=== PATIENT | female | born 1940 | race Caucasian/White ===

== ENCOUNTER → 2018-03-24 09:42 | Outpatient (CLI) | payer MEDICARE, SELFPAY | PROVIDERS: Family Provider Family Medicine; PCP Family Medicine; Visit Provider Physician Assistant | DX: M30.1 Polyarteritis with lung involvement [Churg-Strauss] (principal); N30.01 Acute cystitis with hematuria | CPT/HCPCS: 87077; 87086; 87186 ==

== ENCOUNTER 2018-09-16 12:45 | Outpatient (RCR) | payer MEDICARE, SELFPAY ==
--- NOTE | 2018-08-02 16:00 | PT.OIE ---
Current Diagnoses Muscle weakness (generalized) (08/02/18) Trochanteric bursitis, right hip (08/02/18) Other abnormalities of gait and mobility (08/02/18) Other symptoms and signs involving the musculoskeletal system (08/02/18) Past Medical History (Last Updated 05/21/18 @ 12:05 by Lucrecia Steen) Diabetes mellitus (Chronic 08/2000) Glaucoma (Chronic 09/2004) Hyperlipidemia (Chronic) Hypertension (Chronic) Lumbar spinal stenosis (Chronic) Osteoarthritis (Chronic) Urinary incontinence (Chronic 08/2009) Cataract (Resolved 2012) Gout (Resolved ~10/1995) Past Surgical History (Last Updated 05/21/18 @ 12:05 by Lucrecia Steen) Anesthesia (Resolved) History of cataract removal with insertion of prosthetic lens (Resolved) History of hip replacement (Resolved) History of knee replacement (Resolved 04/2009) History of knee replacement (Resolved 07/2010) History of open reduction and internal fixation (ORIF) procedure (Resolved) Status post cholecystectomy (Resolved 08/1998) Status post discectomy (Resolved 06/2014) Provider Visit Care Team Role Provider Type Clyde Armas MD Family Provider Physician Primary Care Provider Specialty: Family Practice Address: [address] [place] [address] Email: [email or web address] Malachi Welsh MD Attending Provider Physician Specialty: Orthopedic Surgery Address: [address] [place] [address], [facility] Email: [email or web address] Physical Therapy Initial Evaluation PT-OP-A Visit Information Start: 07/30/18 17:20 Freq: Status: Active Protocol: Document 08/02/18 13:35 LRN (Rec: 08/02/18 14:51 LRN [id number]) Out-Patient Physical Therapy Visit Information Visit Information Visit Type Initial Evaluation Visit Start Time 13:35 Visit Stop Time 14:35 Total Visit Minutes 60 Visit Number 1 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 Pain is 0-5/10. No pain with sitting, walking worsens with distance/time. After 12 steps feels like leg will give out. Has fallen a couple times (last time fell 07/22/18 while outside fell to the right) because she trips on the cane (using the cane on the left side). When down she can't get up because core strength is poor. Cane use for 1 month. Prior Treatments and Tests Cortisone injection in R hip with +response for only 15 minutes. Future Testing and Treatments Planned MD follow up 6 weeks from today (~09/07/18). Treatment Goals Patient/Caregiver Goals Pt goal is to be able to walk without pain and without the cane. Prior Functional Status Baseline Function- ADL's Independent Baseline Function- Mobility Independent Baseline Function- Gait 100' without assist device. Baseline Function- Recreation/Hobbies Can't garden Current Functional Impairments (Reported) Functional Limitations- ADL's Walking from one end to the house to the other (75'). Sometimes getting in/out of shower, trouble getting up/ down from regular toilet, Functional Limitations- Mobility/Gait Walking 100' with cane Personal Factors Other Personal Factors That May Effect Lives alone, Chronicity of Therapy/Recovery condition, failed response to Cortisone injection, history of L AUGUSTO and glo TKA. PT-OP-C Subjective Start: 07/30/18 17:20 Freq: Status: Active Protocol: Document 08/02/18 13:35 LRN (Rec: 08/02/18 14:51 LRN [id number]) Patient Questionnaires Lower Extremity Functional Scale LEFS Score 39 LEFS Impairment 40 to 59% Impaired (Score 32- 47) OP-PT Pain Assessment Location R hip Pain Location Details R Lateral hip Intensity 6 Scale Used Numeric (1 - 10) Description Stabbing Frequency No Pattern Radiating Location None Pain Aggravating Factors Standing Walking Stair Climbing Patient Stated Pain Goal Relieving pain Home Pain Medication Use Pain Medications Used Yes: Sometimes and mostly for arthritis Home Pain Medication Frequency Tylenol PT-OP-D Balance Start: 07/30/18 17:20 Freq: Status: Active Protocol: Document 08/02/18 13:35 LRN (Rec: 08/02/18 16:39 LRN [id number]) Balance Tests Single Limb Standing Single Limb- Right 0 Single Limb- Left 1 Other Other Balance Tests Performed Pt did not feels safe SLS without assist to start. PT-OP-F Manual Assessment Start: 07/30/18 17:20 Freq: Status: Active Protocol: Document 08/02/18 13:35 LRN (Rec: 08/02/18 16:39 LRN [id number]) Manual Assessments Soft Tissue Assessment Soft Tissue Mobility Assessment Pain at R greater trochanter with greatest pain inferiorly and at hip ER tendonous attachments. Denies pain at IT Band. PT-OP-G Mobility & Gait Start: 07/30/18 17:20 Freq: Status: Active Protocol: Document 08/02/18 13:35 LRN (Rec: 08/02/18 16:39 LRN [id number]) OP Gait Assessment Gait Gait Assistance Required: Independent Able to Maintain Weight Bearing Status Yes During Gait Assistive Devices Assistive Device Straight Cane Gait Deviations General Gait Pattern Antalgic Lateral Trunk Lean Wide Based Gait Factors Limiting Gait Function Factors Limiting Gait Function Incoordination Pain Comments Gait Comments Gait limited by incoordination with use of cane. Pt demonstrated improper use of cane and was not able to safely coordinate gait with use of cane. PT-OP-H Neuro Start: 07/30/18 17:20 Freq: Status: Active Protocol: Document 08/02/18 13:35 LRN (Rec: 08/02/18 16:39 LRN [id number]) Sensation Evaluation Gross Sensation Gross Sensation WNL Deep Tendon Reflex & Clonus Assessment Deep Tendon Reflex Bilateral Patellar Deep Tendon Reflex 1+ Diminished Bilateral Achilles Deep Tendon Reflex 0 Absent PT-OP-J Posture/Palpation/Skin Start: 07/30/18 17:20 Freq: Status: Active Protocol: Document 08/02/18 13:35 LRN (Rec: 08/02/18 16:39 LRN [id number]) Posture Evaluation Comments Posture Comments In standing: Pt has a mildly wide stance, mildly forward bent at hips, decreased lumbar lordosis, increased mid thoracic kyphosis, and increased R shoulder height. Palpation Assessment Location R hip Palpation Location R greater trochanter Palpation Findings Tenderness Palpation Details Pain at greater trochanter, inferiorly and posteriorly at hip ER tendons. PT-OP-K Range of Motion Start: 07/30/18 17:20 Freq: Status: Active Protocol: Document 08/02/18 13:35 LRN (Rec: 08/02/18 16:39 LRN [id number]) Hip Goniometric Range of Motion Hip Measured in Degrees Right Active Testing Position Sitting External Rotation 0 Right Passive Testing Position Supine Internal Rotation 20 External Rotation 75 Left Passive Testing Position Supine Abduction 35 Internal Rotation 35 External Rotation 45 Hip ROM Limitations Comments Passive Hip AD (in supine): 25 deg's left, 15 deg's right. PT-OP-M Strength Start: 07/30/18 17:20 Freq: Status: Active Protocol: Document 08/02/18 13:35 LRN (Rec: 08/02/18 16:39 LRN [id number]) Hip Strength Hip Manual Muscle Testing Right Flexion (L2) 3 Fair Extension (S1) 2- Poor- Abduction 2- Poor- Adduction 2- Poor- External Rotation 4 Good Internal Rotation 3 Fair Left Flexion (L2) 3 Fair Extension (S1) 2- Poor- Abduction 2- Poor- Adduction 1 Trace External Rotation 2- Poor- Internal Rotation 3 Fair Knee Strength Knee Manual Muscle Testing Right Reason Not Measured WFL Left Reason Not Measured WFL PT-OP-Q Treatments Start: 07/30/18 17:20 Freq: Status: Active Protocol: Document 08/02/18 13:35 LRN (Rec: 08/02/18 16:39 LRN [id number]) Gait Training Gait Activity 1 Description Gait training with use of cane Device Used Cane Level of Assistance Moderate Surface Level Distance/Duration 5' Treatment Focus Weight reduction on R LE. Comments Pt unable to coordinate unweighting of R LE with use of cane on the L side. Pt continued to weight bear normal on R and off weighted on the L, even with physical assist and cuing. Self-Care/Home Management Treatment Education Patient Education Pain Management Safety Other Education Discussed safety of gait with use of walker vs a cane on the left. I/S pt in use of cryotherapy for the hip and discussed RICE treatment for inflammation management. PT-OP-R Modalities Start: 07/30/18 17:20 Freq: Status: Active Protocol: Document 08/02/18 13:35 LRN (Rec: 08/02/18 16:39 LRN [id number]) Hot Pack/Cold Pack Treatment Cold Pack Patient Position Sitting Treatment Duration (minutes) 10 Patient Tolerance Good Comments Sitting due to positioning of pt to start was in sitting. PT-OP-T Assessment and Plan Start: 07/30/18 17:20 Freq: Status: Active Protocol: Document 08/02/18 13:35 LRN (Rec: 08/02/18 14:51 LRN [id number]) Physical Therapy Assessment Rehab Potential Rehabilitation Potential Good Evaluation Complexity Number of Personal Factors/Comorbidities 1-2 Number of Body Systems Impaired 4 or More Clinical Presentation at Evaluation Stable Impairments Impairments Activity Tolerance Balance Gait Pain Posture ROM Strength Other Concerns Age Related Concerns 65+ yrs old. Diabetes. History of falls Barriers to Rehabilitation L AUGUSTO Bilateral TKA's Goals Four Impairment Decreased hip mobility with R hip pain. Jail Goal (LTG) Pt will improve hip mobility and be able to don socks without hip pain and walk with decreased hip pain. 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 LTG Duration 10/05/18 Two Impairment Decreased balance [employer] Director Goal (LTG) Pt will be able to walk safely without a cane LTG Duration 10/05/18 One Impairment Lacks self long-term program Jail Goal (LTG) Pt will be independent with a home exercise program. LTG Duration 10/05/18 Assessment Summary Assessment Pt is an 78 year old female with signs and symptoms of R hip bursitis. She has pain upon palpation and relief with rest. She has decreased hip, knee and core strength and is limited with hip mobility. She also demonstrates poor gait mechanics using a single point cane (SPC) even after training and would be safer with use of a walker to help unweight her R LE during gait. Prognosis is good if the pt can perform proper hip care and normalize her gait mechanics with an assistive device to start. The pt will benefit from skilled physical therapy to decrease her R hip pain, improve her gait mechanics, improve her hip mobility and strength and improve her core awareness for stabilization and strengthening. Physical Therapy Plan Frequency and Duration Frequency of Treatment 2x/Week Plan of Care Start Date 08/02/18 Plan of Care End Date 10/05/18 Therapeutic Interventions Therapeutic Interventions Aquatic Therapy Gait Training Home Exercise Program Joint Mobilizations Neuromuscular Re-education Patient/Caregiver Education Self-Care/Home Management Soft Tissue Mobilization Taping Therapeutic Exercises Modalities Cold Pack/Ice Massage Iontophoresis Ultrasound Next Visit Focus/Plan Next Note Type Treatment Note Next Visit Plan Assess TUG for safety with gait (cane vs walker) and stair ambulation. Start Ultrasound R hip bursa and hip ER tendons at greater trochanter, stretch hip external rotators and TFL, HEP & gait training with walker. End K-tape for space correction and ice, or iontophoresis (with return of referral).
--- NOTE | 2018-08-02 16:00 | PT.OPPOC ---
Current Diagnoses Muscle weakness (generalized) (08/02/18) Trochanteric bursitis, right hip (08/02/18) Other abnormalities of gait and mobility (08/02/18) Other symptoms and signs involving the musculoskeletal system (08/02/18) Provider Visit Care Team Role Provider Type Clyde Armas MD Family Provider Physician Primary Care Provider Specialty: Family Practice Address: [address] [place] [address], [id number] Email: [email or web address] Malachi Welsh MD Attending Provider Physician Specialty: Orthopedic Surgery Address: [address] [place] [address], [address] Email: [email or web address] Plan Of Care PT-OP-T Assessment and Plan Start: 07/30/18 17:20 Freq: Status: Active Protocol: Document 08/02/18 13:35 LRN (Rec: 08/02/18 14:51 LRN [id number]) Physical Therapy Assessment Rehab Potential Rehabilitation Potential Good Evaluation Complexity Number of Personal Factors/Comorbidities 1-2 Number of Body Systems Impaired 4 or More Clinical Presentation at Evaluation Stable Impairments Impairments Activity Tolerance Balance Gait Pain Posture ROM Strength Other Concerns Age Related Concerns 65+ yrs old. Diabetes. History of falls Barriers to Rehabilitation L AUG[place]O Bilateral TKA's Goals Four Impairment Decreased hip mobility with R hip pain. [place] Goal (LTG) Pt will improve hip mobility and be able to don socks without hip pain and walk with decreased hip pain. Three Impairment Decreased hip and core strength [place] Goal (LTG) Pt will be able to walk at her baseline level without a cane . LTG Duration 10/05/18 Two Impairment Decreased balance [place] Goal (LTG) Pt will be able to walk safely without a cane LTG Duration 10/05/18 One Impairment Lacks self long-term program Long-Term Goal (LTG) Pt will be independent with a home exercise program. LTG Duration 10/05/18 Assessment Summary Assessment Pt is an 78 year old female with signs and symptoms of R hip bursitis. She has pain upon palpation and relief with rest. She has decreased hip, knee and core strength and is limited with hip mobility. She also demonstrates poor gait mechanics using a single point cane (SPC) even after training and would be safer with use of a walker to help unweight her R LE during gait. Prognosis is good if the pt can perform proper hip care and normalize her gait mechanics with an assistive device to start. The pt will benefit from skilled physical therapy to decrease her R hip pain, improve her gait mechanics, improve her hip mobility and strength and improve her core awareness for stabilization and strengthening. Physical Therapy Plan Frequency and Duration Frequency of Treatment 2x/Week Plan of Care Start Date 08/02/18 Plan of Care End Date 10/05/18 Therapeutic Interventions Therapeutic Interventions Aquatic Therapy Gait Training Home Exercise Program Joint Mobilizations Neuromuscular Re-education Patient/Caregiver Education Self-Care/Home Management Soft Tissue Mobilization Taping Therapeutic Exercises Modalities Cold Pack/Ice Massage Iontophoresis Ultrasound Next Visit Focus/Plan Next Note Type Treatment Note Next Visit Plan Assess TUG for safety with gait (cane vs walker) and stair ambulation. Start Ultrasound R hip bursa and hip ER tendons at greater trochanter, stretch hip external rotators and TFL, HEP & gait training with walker. End K-tape for space correction and ice, or iontophoresis (with return of referral). Plan of Care Dates Plan of Care Start Date 08/02/18 Plan of Care End Date 10/05/18 Please Sign and Return: I have reviewed this Plan of Care and certify that the skilled therapy services above are required to meet the patient?s needs. Physician Signature Date Printed Name and Credentials Clinical Instructor Signature Printed Name and Credentials
--- NOTE | 2018-08-05 16:32 | PT.OTN ---
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 Pain is 0-5/10. No pain with sitting, walking worsens with distance/time. After 12 steps feels like leg will give out. Has fallen a couple times (last time fell 07/22/18 while outside fell to the right) because she trips on the cane (using the cane on the left side). When down she can't get up because core strength is poor. Cane use for 1 month. Prior Treatments and Tests Cortisone injection in R hip with +response for only 15 minutes. Future Testing and Treatments Planned MD follow up 6 weeks from today (~09/07/18). Treatment Goals Patient/Caregiver Goals Pt goal is to be able to walk without pain and without the cane. Prior Functional Status Baseline Function- ADL's Independent Baseline Function- Mobility Independent Baseline Function- Gait 100' without assist device. Baseline Function- Recreation/Hobbies Can't garden Current Functional Impairments (Reported) Functional Limitations- ADL's Walking from one end to the house to the other (75'). Sometimes getting in/out of shower, trouble getting up/ down from regular toilet, Functional Limitations- Mobility/Gait Walking 100' with cane Personal Factors Other Personal Factors That May Effect Lives alone, Chronicity of Therapy/Recovery condition, failed response to Cortisone injection, history of L AUGUSTO and timbo TKA. PT-OP-C Subjective Start: 07/30/18 17:20 Freq: Status: Active Protocol: Document 08/05/18 13:30 LRN (Rec: 08/05/18 14:31 LRN [id number]) OP-PT Subjective Patient Comments Patient Comments Pt notes a little improvement with use of walker at home, more mobility. PT-OP-D Balance Start: 07/30/18 17:20 Freq: Status: Active Protocol: Document 08/02/18 13:35 LRN (Rec: 08/02/18 16:39 LRN [id number]) Balance Tests Single Limb Standing Single Limb- Right 0 Single Limb- Left 1 Other Other Balance Tests Performed Pt did not feels safe SLS without assist to start. PT-OP-E Functional Tests Start: 07/30/18 17:20 Freq: Status: Active Protocol: Document 08/05/18 13:30 LRN (Rec: 08/05/18 14:31 LRN [id number]) Functional Tests Timed Up and Go (TUG) Score 18 Comments Cane used on left side TUG Impairment Rating 80 to <100% Impaired (Score 18 -19) PT-OP-F Manual Assessment Start: 07/30/18 17:20 Freq: Status: Active Protocol: Document 08/02/18 13:35 LRN (Rec: 08/02/18 16:39 LRN [id number]) Manual Assessments Soft Tissue Assessment Soft Tissue Mobility Assessment Pain at R greater trochanter with greatest pain inferiorly and at hip ER tendonous attachments. Denies pain at IT Band. PT-OP-G Mobility & Gait Start: 07/30/18 17:20 Freq: Status: Active Protocol: Document 08/05/18 13:30 LRN (Rec: 08/05/18 14:31 LRN [id number]) Stair Climbing Evaluation Evaluation Level of Assist On Stairs Independent Devices Stair Climbing Assistive Devices Straight Cane Left Railing Right Railing Comments Stair Climbing Comments Pt can do step over step on 4 step. On 6 step ascend/ descend with step to step gait . PT-OP-H Neuro Start: 07/30/18 17:20 Freq: Status: Active Protocol: Document 08/02/18 13:35 LRN (Rec: 12/17/18 16:39 LRN [id number]) Sensation Evaluation Gross Sensation Gross Sensation WNL Deep Tendon Reflex & Clonus Assessment Deep Tendon Reflex Bilateral Patellar Deep Tendon Reflex 1+ Diminished Bilateral Achilles Deep Tendon Reflex 0 Absent PT-OP-J Posture/Palpation/Skin Start: 07/30/18 17:20 Freq: Status: Active Protocol: Document 08/02/18 13:35 LRN (Rec: 08/02/18 16:39 LRN [id number]) Posture Evaluation Comments Posture Comments In standing: Pt has a mildly wide stance, mildly forward bent at hips, decreased lumbar lordosis, increased mid thoracic kyphosis, and increased R shoulder height. Palpation Assessment Location R hip Palpation Location R greater trochanter Palpation Findings Tenderness Palpation Details Pain at greater trochanter, inferiorly and posteriorly at hip ER tendons. PT-OP-K Range of Motion Start: 07/30/18 17:20 Freq: Status: Active Protocol: Document 08/02/18 13:35 LRN (Rec: 08/02/18 16:39 LRN [id number]) Hip Goniometric Range of Motion Hip Measured in Degrees Right Active Testing Position Sitting External Rotation 0 Right Passive Testing Position Supine Internal Rotation 20 External Rotation 75 Left Passive Testing Position Supine Abduction 35 Internal Rotation 35 External Rotation 45 Hip ROM Limitations Comments Passive Hip AD (in supine): 25 deg's left, 15 deg's right. PT-OP-M Strength Start: 07/30/18 17:20 Freq: Status: Active Protocol: Document 08/02/18 13:35 LRN (Rec: 08/02/18 16:39 LRN [id number]) Hip Strength Hip Manual Muscle Testing Right Flexion (L2) 3 Fair Extension (S1) 2- Poor- Abduction 2- Poor- Adduction 2- Poor- External Rotation 4 Good Internal Rotation 3 Fair Left Flexion (L2) 3 Fair Extension (S1) 2- Poor- Abduction 2- Poor- Adduction 1 Trace External Rotation 2- Poor- Internal Rotation 3 Fair Knee Strength Knee Manual Muscle Testing Right Reason Not Measured WFL Left Reason Not Measured WFL PT-OP-Q Treatments Start: 07/30/18 17:20 Freq: Status: Active Protocol: Document 08/05/18 13:30 LRN (Rec: 08/05/18 16:25 LRN [id number]) Gait Training Gait Activity Stairs Description Ascend/Descend Device Used Cane, 1 Railing, 2 Railings Level of Assistance V. cuing Surface 4 and 6 steps Distance/Duration 8' Treatment Focus Safety with stair ambulation Comments Pt varied the way she ambulated stairs based on how stable and safe she was feeling. 1 Description Gait training Device Used Parallel bars and Cane Level of Assistance Min A and verbal cuing Surface Level Distance/Duration 25' Comments Proper mechanics of L foot during swing through phase and for off loading of RLE. PT-OP-R Modalities Start: 07/30/18 17:20 Freq: Status: Active Protocol: Document 08/05/18 13:30 LRN (Rec: 08/05/18 16:25 LRN [id number]) Hot Pack/Cold Pack Treatment Cold Pack Location Low back Patient Position Sitting Treatment Duration (minutes) 10 Patient Tolerance Good Ultrasound Therapy Treatment R hip Treatment Duration (minutes) 8 Patient Position Sidelying Coupling Medium Ultrasound Gel Applicator Size (cm2) 5 Frequency Setting (mHz) 1 Mode Setting Pulsed Duty Cycle 50% Intensity Setting (w/cm2) 1.0 Comments Less pain with palpation. No change in pain intensity in standing. PT-OP-T Assessment and Plan Start: 07/30/18 17:20 Freq: Status: Active Protocol: Document 08/05/18 13:30 LRN (Rec: 08/05/18 14:31 LRN [id number]) Physical Therapy Assessment Assessment Summary Assessment Pt demonstrates proper use of cane for short distances, but when hurrying she does not use it properly. Per TUG pt is 80<100% impaired with functional mobility. Stairs: she is able to safely go up/ down 4 and 6 steps with use of at least one rail, and can go step over step but is most safe with one step at a time. Gait: She circumducts her L lower leg, increasing her risk of hitting her cane during gait. Physical Therapy Plan Frequency and Duration Frequency of Treatment 2x/Week Plan of Care Start Date 08/02/18 Plan of Care End Date 10/05/18 Next Visit Focus/Plan Next Note Type Treatment Note Next Visit Plan Ultrasound R hip bursa and hip ER tendons at greater trochanter, add: stretch hip external rotators and TFL, gait training as needed for pt not to kick the cane during L leg swing through phase. Try K-tape for space correction and ice, or iontophoresis (with return of referral).
--- NOTE | 2018-08-19 17:04 | PT.OTN ---
Current Diagnoses Trochanteric bursitis, right hip (08/19/18) Physical Therapy Treatment Note PT-OP-A Visit Information Start: 07/30/18 17:20 Freq: Status: Active Protocol: Document 08/19/18 16:51 [facility] (Rec: 08/19/18 17:04 AMH [email or web address]) Out-Patient Physical Therapy Visit Information Visit Information Visit Type Treatment Note Visit Start Time 13:45 Visit Stop Time 14:30 Total Visit Minutes 60 Visit Number 3 Number of BICYCLE DESIGNER Visits 0 Evaluation Information Evaluation Date 08/02/18 PT-OP-B Current Condition Start: 07/30/18 17:20 Freq: Status: Active Protocol: Document 08/02/18 13:35 LRN (Rec: 08/02/18 14:51 LRN [id number]) Current Condition History of Current Condition Onset Date 1 month ago Current Complaints Can't walk without R lateral hip hurting, needs cane History of Current Condition R hip pain of insidious onset that kept worsening to this point. Pain is 0-5/10. No pain with sitting, walking worsens with distance/time. After 12 steps feels like leg will give out. Has fallen a couple times (last time fell 07/22/18 while outside fell to the right) because she trips on the cane (using the cane on the left side). When down she can't get up because core strength is poor. Cane use for 1 month. Prior Treatments and Tests Cortisone injection in R hip with +response for only 15 minutes. Future Testing and Treatments Planned MD follow up 6 weeks from today (~09/07/18). Treatment Goals Patient/Caregiver Goals Pt goal is to be able to walk without pain and without the cane. Prior Functional Status Baseline Function- ADL's Independent Baseline Function- Mobility Independent Baseline Function- Gait 100' without assist device. Baseline Function- Recreation/Hobbies Can't garden Current Functional Impairments (Reported) Functional Limitations- ADL's Walking from one end to the house to the other (75'). Sometimes getting in/out of shower, trouble getting up/ down from regular toilet, Functional Limitations- Mobility/Gait Walking 100' with cane Personal Factors Other Personal Factors That May Effect Lives alone, Chronicity of Therapy/Recovery condition, failed response to Cortisone injection, history of L AUGUSTO and glo TKA. PT-OP-C Subjective Start: 07/30/18 17:20 Freq: Status: Active Protocol: Document 08/19/18 16:51 AMH (Rec: 08/19/18 17:04 AMH [email or web address]) OP-PT Subjective Patient Comments Patient Comments Claudia notes she has been using her cane and walker. She feels like her symptoms are a little bit better. PT-OP-D Balance Start: 07/30/18 17:20 Freq: Status: Active Protocol: Document 08/02/18 13:35 LRN (Rec: 08/02/18 16:39 LRN [id number]) Balance Tests Single Limb Standing Single Limb- Right 0 Single Limb- Left 1 Other Other Balance Tests Performed Pt did not feels safe SLS without assist to start. PT-OP-E Functional Tests Start: 07/30/18 17:20 Freq: Status: Active Protocol: Document 08/05/18 13:30 LRN (Rec: 08/05/18 14:31 LRN [id number]) Functional Tests Timed Up and Go (TUG) Score 18 Comments Cane used on left side TUG Impairment Rating 80 to <100% Impaired (Score 18 -19) PT-OP-F Manual Assessment Start: 07/30/18 17:20 Freq: Status: Active Protocol: Document 08/02/18 13:35 LRN (Rec: 08/02/18 16:39 LRN [id number]) Manual Assessments Soft Tissue Assessment Soft Tissue Mobility Assessment Pain at R greater trochanter with greatest pain inferiorly and at hip ER tendonous attachments. Denies pain at IT Band. PT-OP-G Mobility & Gait Start: 07/30/18 17:20 Freq: Status: Active Protocol: Document 08/05/18 13:30 LRN (Rec: 08/05/18 14:31 LRN [id number]) Stair Climbing Evaluation Evaluation Level of Assist On Stairs Independent Devices Stair Climbing Assistive Devices Straight Cane Left Railing Right Railing Comments Stair Climbing Comments Pt can do step over step on 4 step. On 6 step ascend/ descend with step to step gait . PT-OP-H Neuro Start: 07/30/18 17:20 Freq: Status: Active Protocol: Document 08/02/18 13:35 LRN (Rec: 08/02/18 16:39 LRN [id number]) Sensation Evaluation Gross Sensation Gross Sensation WNL Deep Tendon Reflex & Clonus Assessment Deep Tendon Reflex Bilateral Patellar Deep Tendon Reflex 1+ Diminished Bilateral Achilles Deep Tendon Reflex 0 Absent PT-OP-J Posture/Palpation/Skin Start: 07/30/18 17:20 Freq: Status: Active Protocol: Document 08/02/18 13:35 LRN (Rec: 08/02/18 16:39 LRN [id number]) Posture Evaluation Comments Posture Comments In standing: Pt has a mildly wide stance, mildly forward bent at hips, decreased lumbar lordosis, increased mid thoracic kyphosis, and increased R shoulder height. Palpation Assessment Location R hip Palpation Location R greater trochanter Palpation Findings Tenderness Palpation Details Pain at greater trochanter, inferiorly and posteriorly at hip ER tendons. PT-OP-K Range of Motion Start: 07/30/18 17:20 Freq: Status: Active Protocol: Document 08/02/18 13:35 LRN (Rec: 08/02/18 16:39 LRN [id number]) Hip Goniometric Range of Motion Hip Measured in Degrees Right Active Testing Position Sitting External Rotation 0 Right Passive Testing Position Supine Internal Rotation 20 External Rotation 75 Left Passive Testing Position Supine Abduction 35 Internal Rotation 35 External Rotation 45 Hip ROM Limitations Comments Passive Hip AD (in supine): 25 deg's left, 15 deg's right. PT-OP-M Strength Start: 07/30/18 17:20 Freq: Status: Active Protocol: Document 08/02/18 13:35 LRN (Rec: 08/02/18 16:39 LRN [id number]) Hip Strength Hip Manual Muscle Testing Right Flexion (L2) 3 Fair Extension (S1) 2- Poor- Abduction 2- Poor- Adduction 2- Poor- External Rotation 4 Good Internal Rotation 3 Fair Left Flexion (L2) 3 Fair Extension (S1) 2- Poor- Abduction 2- Poor- Adduction 1 Trace External Rotation 2- Poor- Internal Rotation 3 Fair Knee Strength Knee Manual Muscle Testing Right Reason Not Measured WFL Left Reason Not Measured WFL PT-OP-Q Treatments Start: 07/30/18 17:20 Freq: Status: Active Protocol: Document 08/19/18 16:51 AMH (Rec: 08/19/18 17:04 AMH [email or web address]) Cardio Equipment Recumbent Elliptical (Biodex) Duration (Minutes) 5 Therapeutic Exercises Supine Exercises 4 Supine Exercise Name hoolying hip ER bilateral Reps/Minutes 30 reps 3 Supine Exercise Name hamstring and ITB stretch with strap 2 Supine Exercise Name figure 4 stretch Reps/Minutes hold 1 min 1 Supine Exercise Name single knee to chest Reps/Minutes hold 1 minute Manual Therapy Treatment Soft Tissue Mobilization 1 Body Location soft tissue massage over the right ITB and lateral hip in left sidelying Body Position Sidelying Taping 1 Body Location kinesiotape star technique over the right greater trochanter PT-OP-R Modalities Start: 07/30/18 17:20 Freq: Status: Active Protocol: Document 08/19/18 16:51 AMH (Rec: 08/19/18 17:04 AMH [email or web address]) Hot Pack/Cold Pack Treatment Cold Pack Location Low back Patient Position Sitting Treatment Duration (minutes) 10 Patient Tolerance Good Ultrasound Therapy Treatment R hip Treatment Duration (minutes) 8 Patient Position Sidelying Coupling Medium Ultrasound Gel Applicator Size (cm2) 5 Frequency Setting (mHz) 1 Mode Setting Pulsed Duty Cycle 50% Intensity Setting (w/cm2) 1.0 Comments Less pain with palpation. No change in pain intensity in standing. PT-OP-T Assessment and Plan Start: 07/30/18 17:20 Freq: Status: Active Protocol: Document 08/19/18 16:51 AMH (Rec: 08/19/18 17:04 [facility] [email or web address]) Physical Therapy Assessment Assessment Summary Assessment Good tolerance today for STM over the hip and ultrasound. Claudia notes decreased tenderness overall to palpation. She tolerated the stretches well and we did a trial of kinesiotape to help reduce inflammation Physical Therapy Plan Frequency and Duration Frequency of Treatment 2x/Week Plan of Care Start Date 08/02/18 Plan of Care End Date 10/05/18 Therapeutic Interventions Therapeutic Interventions Aquatic Therapy Gait Training Home Exercise Program Joint Mobilizations Neuromuscular Re-education Patient/Caregiver Education Self-Care/Home Management Soft Tissue Mobilization Taping Therapeutic Exercises Modalities Cold Pack/Ice Massage Iontophoresis Ultrasound Next Visit Focus/Plan Next Note Type Treatment Note Next Visit Plan continue with Plan of care, add theraband resistance to hip ER if Claudia can tolerate , work on gait training, assess kinesiotape affectiveness next visit
--- NOTE | 2018-08-24 12:33 | PT.OTN ---
Current Diagnoses Trochanteric bursitis, right hip (08/24/18) Physical Therapy Treatment Note PT-OP-A Visit Information Start: 07/30/18 17:20 Freq: Status: Active Protocol: Document 08/24/18 11:20 LRN (Rec: 08/24/18 12:20 LRN [id number]) Out-Patient Physical Therapy Visit Information Visit Information Visit Type Treatment Note Visit Start Time 11:20 Visit Stop Time 12:10 Total Visit Minutes 50 Visit Number 4 Number of WEIGHTS AND MEASURES SEALER Visits 0 Evaluation Information Evaluation Date 08/02/18 PT-OP-B Current Condition Start: 07/30/18 17:20 Freq: Status: Active Protocol: Document 08/02/18 13:35 LRN (Rec: 08/02/18 14:51 LRN [id number]) Current Condition History of Current Condition Onset Date 1 month ago Current Complaints Can't walk without R lateral hip hurting, needs cane History of Current Condition R hip pain of insidious onset that kept worsening to this point. Pain is 0-5/10. No pain with sitting, walking worsens with distance/time. After 12 steps feels like leg will give out. Has fallen a couple times (last time fell 07/22/18 while outside fell to the right) because she trips on the cane (using the cane on the left side). When down she can't get up because core strength is poor. Cane use for 1 month. Prior Treatments and Tests Cortisone injection in R hip with +response for only 15 minutes. Future Testing and Treatments Planned MD follow up 6 weeks from today (~09/07/18). Treatment Goals Patient/Caregiver Goals Pt goal is to be able to walk without pain and without the cane. Prior Functional Status Baseline Function- ADL's Independent Baseline Function- Mobility Independent Baseline Function- Gait 100' without assist device. Baseline Function- Recreation/Hobbies Can't garden Current Functional Impairments (Reported) Functional Limitations- ADL's Walking from one end to the house to the other (75'). Sometimes getting in/out of shower, trouble getting up/ down from regular toilet, Functional Limitations- Mobility/Gait Walking 100' with cane Personal Factors Other Personal Factors That May Effect Lives alone, Chronicity of Therapy/Recovery condition, failed response to Cortisone injection, history of L AUGUSTO and glo TKA. PT-OP-C Subjective Start: 07/30/18 17:20 Freq: Status: Active Protocol: Document 08/24/18 11:20 LRN (Rec: 08/24/18 12:20 LRN [id number]) OP-PT Subjective Patient Comments Patient Comments States she is a little better. She is able to take a few steps without pain, but then uses the cane when the pain returns. PT-OP-D Balance Start: 07/30/18 17:20 Freq: Status: Active Protocol: Document 08/02/18 13:35 LRN (Rec: 08/02/18 16:39 LRN [id number]) Balance Tests Single Limb Standing Single Limb- Right 0 Single Limb- Left 1 Other Other Balance Tests Performed Pt did not feels safe SLS without assist to start. PT-OP-E Functional Tests Start: 07/30/18 17:20 Freq: Status: Active Protocol: Document 08/05/18 13:30 LRN (Rec: 08/05/18 14:31 LRN [id number]) Functional Tests Timed Up and Go (TUG) Score 18 Comments Cane used on left side TUG Impairment Rating 80 to <100% Impaired (Score 18 -19) PT-OP-F Manual Assessment Start: 07/30/18 17:20 Freq: Status: Active Protocol: Document 08/02/18 13:35 LRN (Rec: 08/02/18 16:39 LRN [id number]) Manual Assessments Soft Tissue Assessment Soft Tissue Mobility Assessment Pain at R greater trochanter with greatest pain inferiorly and at hip ER tendonous attachments. Denies pain at IT Band. PT-OP-G Mobility & Gait Start: 07/30/18 17:20 Freq: Status: Active Protocol: Document 08/05/18 13:30 LRN (Rec: 08/05/18 14:31 LRN [id number]) Stair Climbing Evaluation Evaluation Level of Assist On Stairs Independent Devices Stair Climbing Assistive Devices Straight Cane Left Railing Right Railing Comments Stair Climbing Comments Pt can do step over step on 4 step. On 6 step ascend/ descend with step to step gait . PT-OP-H Neuro Start: 07/30/18 17:20 Freq: Status: Active Protocol: Document 08/02/18 13:35 LRN (Rec: 08/02/18 16:39 LRN [id number]) Sensation Evaluation Gross Sensation Gross Sensation WNL Deep Tendon Reflex & Clonus Assessment Deep Tendon Reflex Bilateral Patellar Deep Tendon Reflex 1+ Diminished Bilateral Achilles Deep Tendon Reflex 0 Absent PT-OP-J Posture/Palpation/Skin Start: 07/30/18 17:20 Freq: Status: Active Protocol: Document 08/02/18 13:35 LRN (Rec: 08/02/18 16:39 LRN [id number]) Posture Evaluation Comments Posture Comments In standing: Pt has a mildly wide stance, mildly forward bent at hips, decreased lumbar lordosis, increased mid thoracic kyphosis, and increased R shoulder height. Palpation Assessment Location R hip Palpation Location R greater trochanter Palpation Findings Tenderness Palpation Details Pain at greater trochanter, inferiorly and posteriorly at hip ER tendons. PT-OP-K Range of Motion Start: 07/30/18 17:20 Freq: Status: Active Protocol: Document 08/02/18 13:35 LRN (Rec: 08/02/18 16:39 LRN [id number]) Hip Goniometric Range of Motion Hip Measured in Degrees Right Active Testing Position Sitting External Rotation 0 Right Passive Testing Position Supine Internal Rotation 20 External Rotation 75 Left Passive Testing Position Supine Abduction 35 Internal Rotation 35 External Rotation 45 Hip ROM Limitations Comments Passive Hip AD (in supine): 25 deg's left, 15 deg's right. PT-OP-M Strength Start: 07/30/18 17:20 Freq: Status: Active Protocol: Document 08/02/18 13:35 LRN (Rec: 08/02/18 16:39 LRN [id number]) Hip Strength Hip Manual Muscle Testing Right Flexion (L2) 3 Fair Extension (S1) 2- Poor- Abduction 2- Poor- Adduction 2- Poor- External Rotation 4 Good Internal Rotation 3 Fair Left Flexion (L2) 3 Fair Extension (S1) 2- Poor- Abduction 2- Poor- Adduction 1 Trace External Rotation 2- Poor- Internal Rotation 3 Fair Knee Strength Knee Manual Muscle Testing Right Reason Not Measured WFL Left Reason Not Measured WFL PT-OP-Q Treatments Start: 07/30/18 17:20 Freq: Status: Active Protocol: Document 08/24/18 11:20 LRN (Rec: 08/24/18 12:20 LRN [id number]) Therapeutic Exercises Supine Exercises 4 Supine Exercise Name hookying hip ER bilateral Resistance Lev 1 TB Reps/Minutes 30 reps 3 Supine Exercise Name hamstring and ITB stretch with strap 2 Supine Exercise Name figure 4 stretch Reps/Minutes hold 1 min 1 Supine Exercise Name single knee to chest Reps/Minutes hold 1 minute Gait Training Gait Activity 1 Device Used Cane Level of Assistance Min A and verbal cuing Surface Level Distance/Duration 15 Treatment Focus R foot position and weight shift L hip Manual Therapy Treatment Soft Tissue Mobilization 1 Body Location STM & Trp treatment to T TFL and ITB Body Position L Sidelying Taping 1 Body Location kinesiotape star technique over the right greater trochanter Treatment Focus Space correction Type of Tape Kinesio Tape Skin Inspection Good PT-OP-R Modalities Start: 07/30/18 17:20 Freq: Status: Active Protocol: Document 08/24/18 11:20 LRN (Rec: 08/24/18 12:20 LRN [id number]) Ultrasound Therapy Treatment R hip Treatment Duration (minutes) 8 Patient Position Sidelying Coupling Medium Ultrasound Gel Applicator Size (cm2) 5 Frequency Setting (mHz) 1 Mode Setting Pulsed Duty Cycle 50% Intensity Setting (w/cm2) 1.0 Comments Less pain with palpation. No change in pain intensity in standing. PT-OP-T Assessment and Plan Start: 07/30/18 17:20 Freq: Status: Active Protocol: Document 08/24/18 11:20 LRN (Rec: 08/24/18 12:20 LRN [id number]) Physical Therapy Assessment Goals Four Impairment Decreased hip mobility with R hip pain. Harp Regulator Goal (LTG) Pt will improve hip mobility and be able to don socks without hip pain and walk with decreased hip pain. Three Impairment Decreased hip and core strength Harp Regulator Goal (LTG) Pt will be able to walk at her baseline level without a cane . LTG Duration 10/05/18 Two Impairment Decreased balance Assisted Goal (LTG) Pt will be able to walk safely without a cane LTG Duration 10/05/18 One Impairment Lacks self nursing home program Harp Regulator Goal (LTG) Pt will be independent with a home exercise program. LTG Duration 10/05/18 Assessment Summary Assessment Pt able to take some steps without cane and without pain. Pt was able to ambulate with cane without pain and fair gait mechanics. She shows improved R foot positioning ( mild AB of foot), but needs further training for proper weight shifting and hip/ shoulder positioning when L weightbearing. Physical Therapy Plan Frequency and Duration Frequency of Treatment 2x/Week Plan of Care Start Date 08/02/18 Plan of Care End Date 10/05/18 Next Visit Focus/Plan Next Note Type Treatment Note Next Visit Plan Check TUG. Assess pt response to K-tape for space correction, try iontophoresis (with return of referral). Continue gait training.
--- NOTE | 2018-08-26 15:58 | PT.OTN ---
Current Diagnoses Trochanteric bursitis, right hip (08/24/18) Physical Therapy Treatment Note PT-OP-A Visit Information Start: 07/30/18 17:20 Freq: Status: Active Protocol: Document 08/26/18 13:46 EA (Rec: 08/26/18 13:54 EA [id number]) Out-Patient Physical Therapy Visit Information Visit Information Visit Type Treatment Note Visit Start Time 13:45 Visit Stop Time 14:30 Total Visit Minutes 60 Visit Number 4 Number of CONTRACT PROCESSOR Visits 0 PT-OP-B Current Condition Start: 07/30/18 17:20 Freq: Status: Active Protocol: Document 08/02/18 13:35 LRN (Rec: 08/02/18 14:51 LRN [id number]) Current Condition History of Current Condition Onset Date 1 month ago Current Complaints Can't walk without R lateral hip hurting, needs cane History of Current Condition R hip pain of insidious onset that kept worsening to this point. Pain is 0-5/10. No pain with sitting, walking worsens with distance/time. After 12 steps feels like leg will give out. Has fallen a couple times (last time fell 07/22/18 while outside fell to the right) because she trips on the cane (using the cane on the left side). When down she can't get up because core strength is poor. Cane use for 1 month. Prior Treatments and Tests Cortisone injection in R hip with +response for only 15 minutes. Future Testing and Treatments Planned MD follow up 6 weeks from today (~09/07/18). Treatment Goals Patient/Caregiver Goals Pt goal is to be able to walk without pain and without the cane. Prior Functional Status Baseline Function- ADL's Independent Baseline Function- Mobility Independent Baseline Function- Gait 100' without assist device. Baseline Function- Recreation/Hobbies Can't garden Current Functional Impairments (Reported) Functional Limitations- ADL's Walking from one end to the house to the other (75'). Sometimes getting in/out of shower, trouble getting up/ down from regular toilet, Functional Limitations- Mobility/Gait Walking 100' with cane Personal Factors Other Personal Factors That May Effect Lives alone, Chronicity of Therapy/Recovery condition, failed response to Cortisone injection, history of L AUGUSTO and glo TKA. PT-OP-C Subjective Start: 07/30/18 17:20 Freq: Status: Active Protocol: Document 08/26/18 14:28 EA (Rec: 08/26/18 14:29 EA [id number]) OP-PT Subjective Patient Comments Patient Comments Pt reports my hip is progressing well and feels manual and exercises helps a lot; denies kinesiotape helped . Patient Reported Progress Improving PT-OP-D Balance Start: 07/30/18 17:20 Freq: Status: Active Protocol: Document 08/02/18 13:35 LRN (Rec: 08/02/18 16:39 LRN [id number]) Balance Tests Single Limb Standing Single Limb- Right 0 Single Limb- Left 1 Other Other Balance Tests Performed Pt did not feels safe SLS without assist to start. PT-OP-E Functional Tests Start: 07/30/18 17:20 Freq: Status: Active Protocol: Document 08/05/18 13:30 LRN (Rec: 08/05/18 14:31 LRN [id number]) Functional Tests Timed Up and Go (TUG) Score 18 Comments Cane used on left side TUG Impairment Rating 80 to <100% Impaired (Score 18 -19) PT-OP-F Manual Assessment Start: 07/30/18 17:20 Freq: Status: Active Protocol: Document 08/02/18 13:35 LRN (Rec: 08/02/18 16:39 LRN [id number]) Manual Assessments Soft Tissue Assessment Soft Tissue Mobility Assessment Pain at R greater trochanter with greatest pain inferiorly and at hip ER tendonous attachments. Denies pain at IT Band. PT-OP-G Mobility & Gait Start: 07/30/18 17:20 Freq: Status: Active Protocol: Document 08/05/18 13:30 LRN (Rec: 08/05/18 14:31 LRN [id number]) Stair Climbing Evaluation Evaluation Level of Assist On Stairs Independent Devices Stair Climbing Assistive Devices Straight Cane Left Railing Right Railing Comments Stair Climbing Comments Pt can do step over step on 4 step. On 6 step ascend/ descend with step to step gait . PT-OP-H Neuro Start: 07/30/18 17:20 Freq: Status: Active Protocol: Document 08/02/18 13:35 LRN (Rec: 08/02/18 16:39 LRN [id number]) Sensation Evaluation Gross Sensation Gross Sensation WNL Deep Tendon Reflex & Clonus Assessment Deep Tendon Reflex Bilateral Patellar Deep Tendon Reflex 1+ Diminished Bilateral Achilles Deep Tendon Reflex 0 Absent PT-OP-J Posture/Palpation/Skin Start: 07/30/18 17:20 Freq: Status: Active Protocol: Document 08/02/18 13:35 LRN (Rec: 08/02/18 16:39 LRN [id number]) Posture Evaluation Comments Posture Comments In standing: Pt has a mildly wide stance, mildly forward bent at hips, decreased lumbar lordosis, increased mid thoracic kyphosis, and increased R shoulder height. Palpation Assessment Location R hip Palpation Location R greater trochanter Palpation Findings Tenderness Palpation Details Pain at greater trochanter, inferiorly and posteriorly at hip ER tendons. PT-OP-K Range of Motion Start: 07/30/18 17:20 Freq: Status: Active Protocol: Document 08/02/18 13:35 LRN (Rec: 08/02/18 16:39 LRN [id number]) Hip Goniometric Range of Motion Hip Measured in Degrees Right Active Testing Position Sitting External Rotation 0 Right Passive Testing Position Supine Internal Rotation 20 External Rotation 75 Left Passive Testing Position Supine Abduction 35 Internal Rotation 35 External Rotation 45 Hip ROM Limitations Comments Passive Hip AD (in supine): 25 deg's left, 15 deg's right. PT-OP-M Strength Start: 07/30/18 17:20 Freq: Status: Active Protocol: Document 08/02/18 13:35 LRN (Rec: 08/02/18 16:39 LRN [id number]) Hip Strength Hip Manual Muscle Testing Right Flexion (L2) 3 Fair Extension (S1) 2- Poor- Abduction 2- Poor- Adduction 2- Poor- External Rotation 4 Good Internal Rotation 3 Fair Left Flexion (L2) 3 Fair Extension (S1) 2- Poor- Abduction 2- Poor- Adduction 1 Trace External Rotation 2- Poor- Internal Rotation 3 Fair Knee Strength Knee Manual Muscle Testing Right Reason Not Measured WFL Left Reason Not Measured WFL PT-OP-Q Treatments Start: 07/30/18 17:20 Freq: Status: Active Protocol: Document 08/26/18 13:46 EA (Rec: 08/26/18 13:54 EA [id number]) Therapeutic Exercises Supine Exercises 4 Supine Exercise Name hookying hip ER bilateral Resistance Lev 1 TB Reps/Minutes 30 reps 3 Supine Exercise Name hamstring and ITB stretch with strap 2 Supine Exercise Name figure 4 stretch Reps/Minutes hold 1 min 1 Supine Exercise Name single knee to chest Reps/Minutes hold 1 minute Manual Therapy Treatment Soft Tissue Mobilization 1 Body Location STM & Trp treatment to T TFL and ITB Body Position L Sidelying PT-OP-R Modalities Start: 07/30/18 17:20 Freq: Status: Active Protocol: Document 08/26/18 14:25 EA (Rec: 08/26/18 14:28 EA [id number]) Hot Pack/Cold Pack Treatment Cold Pack Location Right hip Patient Position Sidelying Treatment Duration (minutes) 10 Patient Tolerance Good PT-OP-T Assessment and Plan Start: 07/30/18 17:20 Freq: Status: Active Protocol: Document 08/26/18 14:25 EA (Rec: 08/26/18 14:28 EA [id number]) Physical Therapy Assessment Assessment Summary Assessment Pt tolerated treatment well. Physical Therapy Plan Next Visit Focus/Plan Next Note Type Treatment Note Next Visit Plan Continue gait training.
--- NOTE | 2018-08-30 14:11 | PT.OTN ---
Current Diagnoses Trochanteric bursitis, right hip (08/30/18) Physical Therapy Treatment Note PT-OP-A Visit Information Start: 07/30/18 17:20 Freq: Status: Active Protocol: Document 08/30/18 12:48 LRN (Rec: 08/30/18 14:08 LRN [id number]) Out-Patient Physical Therapy Visit Information Visit Information Visit Type Treatment Note Visit Start Time 12:48 Visit Stop Time 13:40 Total Visit Minutes 52 Visit Number 6 Number of LEGAL SPECIALIST Visits 0 Evaluation Information Evaluation Date 08/02/18 PT-OP-B Current Condition Start: 07/30/18 17:20 Freq: Status: Active Protocol: Document 08/02/18 13:35 LRN (Rec: 08/02/18 14:51 LRN [id number]) Current Condition History of Current Condition Onset Date 1 month ago Current Complaints Can't walk without R lateral hip hurting, needs cane History of Current Condition R hip pain of insidious onset that kept worsening to this point. Pain is 0-5/10. No pain with sitting, walking worsens with distance/time. After 12 steps feels like leg will give out. Has fallen a couple times (last time fell 07/22/18 while outside fell to the right) because she trips on the cane (using the cane on the left side). When down she can't get up because core strength is poor. Cane use for 1 month. Prior Treatments and Tests Cortisone injection in R hip with +response for only 15 minutes. Future Testing and Treatments Planned MD follow up 6 weeks from today (~09/07/18). Treatment Goals Patient/Caregiver Goals Pt goal is to be able to walk without pain and without the cane. Prior Functional Status Baseline Function- ADL's Independent Baseline Function- Mobility Independent Baseline Function- Gait 100' without assist device. Baseline Function- Recreation/Hobbies Can't garden Current Functional Impairments (Reported) Functional Limitations- ADL's Walking from one end to the house to the other (75'). Sometimes getting in/out of shower, trouble getting up/ down from regular toilet, Functional Limitations- Mobility/Gait Walking 100' with cane Personal Factors Other Personal Factors That May Effect Lives alone, Chronicity of Therapy/Recovery condition, failed response to Cortisone injection, history of L AUGUSTO and glo TKA. PT-OP-C Subjective Start: 07/30/18 17:20 Freq: Status: Active Protocol: Document 08/30/18 12:48 LRN (Rec: 08/30/18 14:08 LRN [id number]) OP-PT Subjective Patient Comments Patient Comments Walking with cane. No pain with walking, just tired and weak. Main problem now is back pain. PT-OP-D Balance Start: 07/30/18 17:20 Freq: Status: Active Protocol: Document 08/02/18 13:35 LRN (Rec: 08/02/18 16:39 LRN [id number]) Balance Tests Single Limb Standing Single Limb- Right 0 Single Limb- Left 1 Other Other Balance Tests Performed Pt did not feels safe SLS without assist to start. PT-OP-E Functional Tests Start: 07/30/18 17:20 Freq: Status: Active Protocol: Document 08/30/18 12:48 LRN (Rec: 08/30/18 14:08 LRN [id number]) Functional Tests Timed Up and Go (TUG) Score 25 Comments Without cane TUG Impairment Rating 100% Impaired (Score 20) PT-OP-F Manual Assessment Start: 07/30/18 17:20 Freq: Status: Active Protocol: Document 08/02/18 13:35 LRN (Rec: 08/02/18 16:39 LRN [id number]) Manual Assessments Soft Tissue Assessment Soft Tissue Mobility Assessment Pain at R greater trochanter with greatest pain inferiorly and at hip ER tendonous attachments. Denies pain at IT Band. PT-OP-G Mobility & Gait Start: 07/30/18 17:20 Freq: Status: Active Protocol: Document 08/05/18 13:30 LRN (Rec: 08/05/18 14:31 LRN [id number]) Stair Climbing Evaluation Evaluation Level of Assist On Stairs Independent Devices Stair Climbing Assistive Devices Straight Cane Left Railing Right Railing Comments Stair Climbing Comments Pt can do step over step on 4 step. On 6 step ascend/ descend with step to step gait . PT-OP-H Neuro Start: 07/30/18 17:20 Freq: Status: Active Protocol: Document 08/02/18 13:35 LRN (Rec: 12/17/18 16:39 LRN [id number]) Sensation Evaluation Gross Sensation Gross Sensation WNL Deep Tendon Reflex & Clonus Assessment Deep Tendon Reflex Bilateral Patellar Deep Tendon Reflex 1+ Diminished Bilateral Achilles Deep Tendon Reflex 0 Absent PT-OP-J Posture/Palpation/Skin Start: 07/30/18 17:20 Freq: Status: Active Protocol: Document 08/02/18 13:35 LRN (Rec: 08/02/18 16:39 LRN [id number]) Posture Evaluation Comments Posture Comments In standing: Pt has a mildly wide stance, mildly forward bent at hips, decreased lumbar lordosis, increased mid thoracic kyphosis, and increased R shoulder height. Palpation Assessment Location R hip Palpation Location R greater trochanter Palpation Findings Tenderness Palpation Details Pain at greater trochanter, inferiorly and posteriorly at hip ER tendons. PT-OP-K Range of Motion Start: 07/30/18 17:20 Freq: Status: Active Protocol: Document 08/02/18 13:35 LRN (Rec: 08/02/18 16:39 LRN [id number]) Hip Goniometric Range of Motion Hip Measured in Degrees Right Active Testing Position Sitting External Rotation 0 Right Passive Testing Position Supine Internal Rotation 20 External Rotation 75 Left Passive Testing Position Supine Abduction 35 Internal Rotation 35 External Rotation 45 Hip ROM Limitations Comments Passive Hip AD (in supine): 25 deg's left, 15 deg's right. PT-OP-M Strength Start: 07/30/18 17:20 Freq: Status: Active Protocol: Document 08/02/18 13:35 LRN (Rec: 08/02/18 16:39 LRN [id number]) Hip Strength Hip Manual Muscle Testing Right Flexion (L2) 3 Fair Extension (S1) 2- Poor- Abduction 2- Poor- Adduction 2- Poor- External Rotation 4 Good Internal Rotation 3 Fair Left Flexion (L2) 3 Fair Extension (S1) 2- Poor- Abduction 2- Poor- Adduction 1 Trace External Rotation 2- Poor- Internal Rotation 3 Fair Knee Strength Knee Manual Muscle Testing Right Reason Not Measured WFL Left Reason Not Measured WFL PT-OP-Q Treatments Start: 07/30/18 17:20 Freq: Status: Active Protocol: Document 08/30/18 12:48 LRN (Rec: 08/30/18 14:08 LRN [id number]) Therapeutic Exercises Supine Exercises 2 Supine Exercise Name figure 4 stretch Reps/Minutes hold 1 min Comments In sitting Standing Exercises Squat Equipment Used Railing and Tilt board/Bars Hip Flex, knee bent Side bilateral Equipment Used Railing Reps/Minutes 10 x each Comments Strengthening f/b Balance training Hip Ext Standing Exercise Name Ext, R>L Side bilateral Equipment Used Railing Comments Strengthening f/b Balance training Hip AB Standing Exercise Name AB, R>L Side bilateral Equipment Used Railing Reps/Minutes 10x each Comments Strengthening f/b Balance training Gait Training Gait Activity 1 Device Used With & without Cane Level of Assistance Min A and verbal cuing Surface Level Distance/Duration 10' Treatment Focus Weight shift equally without shoulder leaning. Self-Care/Home Management Treatment Education Patient Education Home Exercise Program Activities Self-Care/Home Management Activities Issued and reviewed HEP: Hip Flex, AB, Ext, and Squatting. PT-OP-R Modalities Start: 07/30/18 17:20 Freq: Status: Active Protocol: Document 08/30/18 12:48 LRN (Rec: 08/30/18 14:08 LRN [id number]) Hot Pack/Cold Pack Treatment Cold Pack Location Right hip Patient Position Supine Treatment Duration (minutes) 10 Patient Tolerance Good PT-OP-T Assessment and Plan Start: 07/30/18 17:20 Freq: Status: Active Protocol: Document 08/30/18 12:48 LRN (Rec: 08/30/18 14:08 LRN [id number]) Physical Therapy Assessment Goals Four Impairment Decreased hip mobility with R hip pain. Detention Goal (LTG) Pt will improve hip mobility and be able to don socks without hip pain and walk with decreased hip pain. LTG Duration (Goal Met 08/30/18) Assessment Summary Assessment Pt has no complaints of hip pain, only weakness of the hip and therefore instability with gait. She has new complaints of back pain/ weakness. TUG of 25 sec's shows 100% impairment without use of cane. Physical Therapy Plan Next Visit Focus/Plan Next Note Type Treatment Note Next Visit Plan Start hip strengthening (AB & Glut Medius) for return to normal gait, and cont gait training as needed. Modalities to R hip as needed for pain management. Progress balance training as tolerated .
--- NOTE | 2018-09-02 13:30 | PT.OTN ---
Current Diagnoses Trochanteric bursitis, right hip (09/02/18) Physical Therapy Treatment Note PT-OP-A Visit Information Start: 07/30/18 17:20 Freq: Status: Active Protocol: Document 09/02/18 11:29 LRN (Rec: 09/02/18 13:08 LRN [id number]) Out-Patient Physical Therapy Visit Information Visit Information Visit Type Treatment Note Visit Start Time 11:29 Visit Stop Time 12:10 Total Visit Minutes 41 Visit Number 7 Number of BASS MECHANISM MAKER Visits 0 Evaluation Information Evaluation Date 08/02/18 PT-OP-B Current Condition Start: 07/30/18 17:20 Freq: Status: Active Protocol: Document 08/02/18 13:35 LRN (Rec: 08/02/18 14:51 LRN [id number]) Current Condition History of Current Condition Onset Date 1 month ago Current Complaints Can't walk without R lateral hip hurting, needs cane History of Current Condition R hip pain of insidious onset that kept worsening to this point. Pain is 0-5/10. No pain with sitting, walking worsens with distance/time. After 12 steps feels like leg will give out. Has fallen a couple times (last time fell 07/22/18 while outside fell to the right) because she trips on the cane (using the cane on the left side). When down she can't get up because core strength is poor. Cane use for 1 month. Prior Treatments and Tests Cortisone injection in R hip with +response for only 15 minutes. Future Testing and Treatments Planned MD follow up 6 weeks from today (~09/07/18). Treatment Goals Patient/Caregiver Goals Pt goal is to be able to walk without pain and without the cane. Prior Functional Status Baseline Function- ADL's Independent Baseline Function- Mobility Independent Baseline Function- Gait 100' without assist device. Baseline Function- Recreation/Hobbies Can't garden Current Functional Impairments (Reported) Functional Limitations- ADL's Walking from one end to the house to the other (75'). Sometimes getting in/out of shower, trouble getting up/ down from regular toilet, Functional Limitations- Mobility/Gait Walking 100' with cane Personal Factors Other Personal Factors That May Effect Lives alone, Chronicity of Therapy/Recovery condition, failed response to Cortisone injection, history of L AUGUSTO and glo TKA. PT-OP-C Subjective Start: 07/30/18 17:20 Freq: Status: Active Protocol: Document 09/02/18 11:29 LRN (Rec: 09/02/18 13:08 LRN [id number]) OP-PT Subjective Patient Comments Patient Comments R knee feels unstable with shallow squats. No hip pain, only weakness of the back. PT-OP-D Balance Start: 07/30/18 17:20 Freq: Status: Active Protocol: Document 08/02/18 13:35 LRN (Rec: 08/02/18 16:39 LRN [id number]) Balance Tests Single Limb Standing Single Limb- Right 0 Single Limb- Left 1 Other Other Balance Tests Performed Pt did not feels safe SLS without assist to start. PT-OP-E Functional Tests Start: 07/30/18 17:20 Freq: Status: Active Protocol: Document 08/30/18 12:48 LRN (Rec: 08/30/18 14:08 LRN [id number]) Functional Tests Timed Up and Go (TUG) Score 25 Comments Without cane TUG Impairment Rating 100% Impaired (Score 20) PT-OP-F Manual Assessment Start: 07/30/18 17:20 Freq: Status: Active Protocol: Document 08/02/18 13:35 LRN (Rec: 08/02/18 16:39 LRN [id number]) Manual Assessments Soft Tissue Assessment Soft Tissue Mobility Assessment Pain at R greater trochanter with greatest pain inferiorly and at hip ER tendonous attachments. Denies pain at IT Band. PT-OP-G Mobility & Gait Start: 07/30/18 17:20 Freq: Status: Active Protocol: Document 08/05/18 13:30 LRN (Rec: 08/05/18 14:31 LRN [id number]) Stair Climbing Evaluation Evaluation Level of Assist On Stairs Independent Devices Stair Climbing Assistive Devices Straight Cane Left Railing Right Railing Comments Stair Climbing Comments Pt can do step over step on 4 step. On 6 step ascend/ descend with step to step gait . PT-OP-H Neuro Start: 07/30/18 17:20 Freq: Status: Active Protocol: Document 08/02/18 13:35 LRN (Rec: 08/02/18 16:39 LRN [id number]) Sensation Evaluation Gross Sensation Gross Sensation WNL Deep Tendon Reflex & Clonus Assessment Deep Tendon Reflex Bilateral Patellar Deep Tendon Reflex 1+ Diminished Bilateral Achilles Deep Tendon Reflex 0 Absent PT-OP-J Posture/Palpation/Skin Start: 07/30/18 17:20 Freq: Status: Active Protocol: Document 08/02/18 13:35 LRN (Rec: 08/02/18 16:39 LRN [id number]) Posture Evaluation Comments Posture Comments In standing: Pt has a mildly wide stance, mildly forward bent at hips, decreased lumbar lordosis, increased mid thoracic kyphosis, and increased R shoulder height. Palpation Assessment Location R hip Palpation Location R greater trochanter Palpation Findings Tenderness Palpation Details Pain at greater trochanter, inferiorly and posteriorly at hip ER tendons. PT-OP-K Range of Motion Start: 07/30/18 17:20 Freq: Status: Active Protocol: Document 08/02/18 13:35 LRN (Rec: 08/02/18 16:39 LRN [id number]) Hip Goniometric Range of Motion Hip Measured in Degrees Right Active Testing Position Sitting External Rotation 0 Right Passive Testing Position Supine Internal Rotation 20 External Rotation 75 Left Passive Testing Position Supine Abduction 35 Internal Rotation 35 External Rotation 45 Hip ROM Limitations Comments Passive Hip AD (in supine): 25 deg's left, 15 deg's right. PT-OP-M Strength Start: 07/30/18 17:20 Freq: Status: Active Protocol: Document 08/02/18 13:35 LRN (Rec: 08/02/18 16:39 LRN [id number]) Hip Strength Hip Manual Muscle Testing Right Flexion (L2) 3 Fair Extension (S1) 2- Poor- Abduction 2- Poor- Adduction 2- Poor- External Rotation 4 Good Internal Rotation 3 Fair Left Flexion (L2) 3 Fair Extension (S1) 2- Poor- Abduction 2- Poor- Adduction 1 Trace External Rotation 2- Poor- Internal Rotation 3 Fair Knee Strength Knee Manual Muscle Testing Right Reason Not Measured WFL Left Reason Not Measured WFL PT-OP-Q Treatments Start: 07/30/18 17:20 Freq: Status: Active Protocol: Document 09/02/18 11:29 LRN (Rec: 09/02/18 13:08 LRN [id number]) Therapeutic Exercises Supine Exercises 4 Supine Exercise Name hookying hip ER bilateral 1 Supine Exercise Name Bridging Side bilateral Reps/Minutes 14x, 10 x 2 Sitting Exercises Knee ext Side bilateral Resistance L 2 Reps/Minutes 10 x 3 Standing Exercises Squat side stepping Side bilateral Equipment Used Railing if needed Reps/Minutes 3 passes Stair stepping Standing Exercise Name Forward & lateral Squat Standing Exercise Name Free standing squats Side bilateral Equipment Used None Hip Flex, knee bent Side bilateral Equipment Used Railing if needed Reps/Minutes 10 x each Comments Strengthening f/b Balance training Hip Ext Standing Exercise Name Ext, R>L Side bilateral Equipment Used Railing Comments Strengthening f/b Balance training Hip AB Standing Exercise Name AB, R>L Side bilateral Equipment Used Railing Reps/Minutes 10x each Comments Strengthening f/b Balance training Gait Training Gait Activity 1 Device Used With & without Cane Level of Assistance Min A and verbal cuing Surface Level Distance/Duration 5' Treatment Focus Weight shift left without shoulder leaning. Self-Care/Home Management Treatment Education Patient Education Home Exercise Program Activities Self-Care/Home Management Activities Pt I/S to do squat side steps and knee ext with T-Band at home. PT-OP-R Modalities Start: 07/30/18 17:20 Freq: Status: Active Protocol: Document 09/02/18 11:29 LRN (Rec: 09/02/18 13:22 LRN [id number]) Hot Pack/Cold Pack Treatment Cold Pack Location Low back Patient Position Supine Treatment Duration (minutes) 10 Patient Tolerance Good PT-OP-T Assessment and Plan Start: 07/30/18 17:20 Freq: Status: Active Protocol: Document 09/02/18 11:29 LRN (Rec: 09/02/18 13:08 LRN [id number]) Physical Therapy Assessment Goals Four Impairment Decreased hip mobility with R hip pain. Group Home Goal (LTG) Pt will improve hip mobility and be able to don socks without hip pain and walk with decreased hip pain. LTG Duration (Goal Met 08/30/18) Three Impairment Decreased hip and core strength Textiles Printer Goal (LTG) Pt will be able to walk at her baseline level without a cane . LTG Duration 10/05/18 Two Impairment Decreased balance Textiles Printer Goal (LTG) Pt will be able to walk safely without a cane LTG Duration 10/05/18 One Impairment Lacks self fpc program Group Home Goal (LTG) Pt will be independent with a home exercise program. LTG Duration 10/05/18 Assessment Summary Assessment Pt c/o weakness of the back, R hip/knee; therefore pt feels the need to use a cane for WBing support for gait. Balance deficit appears to be due to LE weakness. Physical Therapy Plan Frequency and Duration Frequency of Treatment 2x/Week Plan of Care Start Date 08/02/18 Plan of Care End Date 10/05/18 Next Visit Focus/Plan Next Note Type Treatment Note Next Visit Plan Cont with hip, R knee, back strengthening. Focus on progression of balance training to normalize gait and modalities as needed of pain management.
--- NOTE | 2018-09-06 14:40 | PT.OTN ---
Current Diagnoses Trochanteric bursitis, right hip (09/06/18) Physical Therapy Treatment Note PT-OP-A Visit Information Start: 07/30/18 17:20 Freq: Status: Active Protocol: Document 09/06/18 12:45 HH (Rec: 09/06/18 14:40 HH [id number]) Out-Patient Physical Therapy Visit Information Visit Information Visit Type Treatment Note Visit Start Time 12:45 Visit Stop Time 01:30 Total Visit Minutes 45 Visit Number 8 Number of STONE SETTER APPRENTICE Visits 0 PT-OP-B Current Condition Start: 07/30/18 17:20 Freq: Status: Active Protocol: Document 08/02/18 13:35 LRN (Rec: 08/02/18 14:51 LRN [id number]) Current Condition History of Current Condition Onset Date 1 month ago Current Complaints Can't walk without R lateral hip hurting, needs cane History of Current Condition R hip pain of insidious onset that kept worsening to this point. Pain is 0-5/10. No pain with sitting, walking worsens with distance/time. After 12 steps feels like leg will give out. Has fallen a couple times (last time fell 07/22/18 while outside fell to the right) because she trips on the cane (using the cane on the left side). When down she can't get up because core strength is poor. Cane use for 1 month. Prior Treatments and Tests Cortisone injection in R hip with +response for only 15 minutes. Future Testing and Treatments Planned MD follow up 6 weeks from today (~09/07/18). Treatment Goals Patient/Caregiver Goals Pt goal is to be able to walk without pain and without the cane. Prior Functional Status Baseline Function- ADL's Independent Baseline Function- Mobility Independent Baseline Function- Gait 100' without assist device. Baseline Function- Recreation/Hobbies Can't garden Current Functional Impairments (Reported) Functional Limitations- ADL's Walking from one end to the house to the other (75'). Sometimes getting in/out of shower, trouble getting up/ down from regular toilet, Functional Limitations- Mobility/Gait Walking 100' with cane Personal Factors Other Personal Factors That May Effect Lives alone, Chronicity of Therapy/Recovery condition, failed response to Cortisone injection, history of L AUGUSTO and glo TKA. PT-OP-C Subjective Start: 07/30/18 17:20 Freq: Status: Active Protocol: Document 09/06/18 12:45 HH (Rec: 09/06/18 14:40 HH [email or web address]) OP-PT Subjective Patient Comments Patient Comments my r knee feels fine and same for my R hip. But my back and R hip always start to arch after 10-15 mins of walking or standing. I also only walk within the home in a daily basis and i i wish i could walk around [facility] one day without pain. PT-OP-D Balance Start: 07/30/18 17:20 Freq: Status: Active Protocol: Document 08/02/18 13:35 LRN (Rec: 08/02/18 16:39 LRN [id number]) Balance Tests Single Limb Standing Single Limb- Right 0 Single Limb- Left 1 Other Other Balance Tests Performed Pt did not feels safe SLS without assist to start. PT-OP-E Functional Tests Start: 07/30/18 17:20 Freq: Status: Active Protocol: Document 08/30/18 12:48 LRN (Rec: 08/30/18 14:08 LRN [id number]) Functional Tests Timed Up and Go (TUG) Score 25 Comments Without cane TUG Impairment Rating 100% Impaired (Score 20) PT-OP-F Manual Assessment Start: 07/30/18 17:20 Freq: Status: Active Protocol: Document 08/02/18 13:35 LRN (Rec: 08/02/18 16:39 LRN [id number]) Manual Assessments Soft Tissue Assessment Soft Tissue Mobility Assessment Pain at R greater trochanter with greatest pain inferiorly and at hip ER tendonous attachments. Denies pain at IT Band. PT-OP-G Mobility & Gait Start: 07/30/18 17:20 Freq: Status: Active Protocol: Document 08/05/18 13:30 LRN (Rec: 08/05/18 14:31 LRN [id number]) Stair Climbing Evaluation Evaluation Level of Assist On Stairs Independent Devices Stair Climbing Assistive Devices Straight Cane Left Railing Right Railing Comments Stair Climbing Comments Pt can do step over step on 4 step. On 6 step ascend/ descend with step to step gait . PT-OP-H Neuro Start: 07/30/18 17:20 Freq: Status: Active Protocol: Document 08/02/18 13:35 LRN (Rec: 08/02/18 16:39 LRN [id number]) Sensation Evaluation Gross Sensation Gross Sensation WNL Deep Tendon Reflex & Clonus Assessment Deep Tendon Reflex Bilateral Patellar Deep Tendon Reflex 1+ Diminished Bilateral Achilles Deep Tendon Reflex 0 Absent PT-OP-J Posture/Palpation/Skin Start: 07/30/18 17:20 Freq: Status: Active Protocol: Document 08/02/18 13:35 LRN (Rec: 08/02/18 16:39 LRN [id number]) Posture Evaluation Comments Posture Comments In standing: Pt has a mildly wide stance, mildly forward bent at hips, decreased lumbar lordosis, increased mid thoracic kyphosis, and increased R shoulder height. Palpation Assessment Location R hip Palpation Location R greater trochanter Palpation Findings Tenderness Palpation Details Pain at greater trochanter, inferiorly and posteriorly at hip ER tendons. PT-OP-K Range of Motion Start: 07/30/18 17:20 Freq: Status: Active Protocol: Document 08/02/18 13:35 LRN (Rec: 08/02/18 16:39 LRN [id number]) Hip Goniometric Range of Motion Hip Measured in Degrees Right Active Testing Position Sitting External Rotation 0 Right Passive Testing Position Supine Internal Rotation 20 External Rotation 75 Left Passive Testing Position Supine Abduction 35 Internal Rotation 35 External Rotation 45 Hip ROM Limitations Comments Passive Hip AD (in supine): 25 deg's left, 15 deg's right. PT-OP-M Strength Start: 07/30/18 17:20 Freq: Status: Active Protocol: Document 08/02/18 13:35 LRN (Rec: 08/02/18 16:39 LRN [id number]) Hip Strength Hip Manual Muscle Testing Right Flexion (L2) 3 Fair Extension (S1) 2- Poor- Abduction 2- Poor- Adduction 2- Poor- External Rotation 4 Good Internal Rotation 3 Fair Left Flexion (L2) 3 Fair Extension (S1) 2- Poor- Abduction 2- Poor- Adduction 1 Trace External Rotation 2- Poor- Internal Rotation 3 Fair Knee Strength Knee Manual Muscle Testing Right Reason Not Measured WFL Left Reason Not Measured WFL PT-OP-Q Treatments Start: 07/30/18 17:20 Freq: Status: Active Protocol: Document 09/06/18 12:45 HH (Rec: 01/21/19 14:40 HH [email or web address]) Therapeutic Exercises Supine Exercises 2 Supine Exercise Name figure 4 stretch Reps/Minutes hold 1 min Comments In sitting 1 Supine Exercise Name Bridging Side bilateral Reps/Minutes 14x, 10 x 2 Comments with resisted ER Sitting Exercises seated pelvic tilt Reps/Minutes 20 x 2 Trunk flexion Reps/Minutes 6 x 2 Comments floor touch Standing Exercises Single leg stance Reps/Minutes 3 secs hold x 3 x 3 Squat Standing Exercise Name squat hold Reps/Minutes 5 x 2 Comments without touching the chair Manual Therapy Treatment Soft Tissue Mobilization 1 Body Location STM on b paraspinals Mobilization Type Cross-Friction Sustained Pressure Intensity/Depth Moderate Body Position Sidelying PT-OP-R Modalities Start: 07/30/18 17:20 Freq: Status: Active Protocol: Document 09/02/18 11:29 LRN (Rec: 09/02/18 13:22 LRN [id number]) Hot Pack/Cold Pack Treatment Cold Pack Location Low back Patient Position Supine Treatment Duration (minutes) 10 Patient Tolerance Good PT-OP-T Assessment and Plan Start: 07/30/18 17:20 Freq: Status: Active Protocol: Document 09/06/18 12:45 HH (Rec: 09/06/18 14:40 HH [email or web address]) Physical Therapy Assessment Assessment Summary Assessment Pt summer tx well today without c /o pain but slight fatigue from quads after sit to stand hold. Pt demonstrates lack of lumbar segmental control who is unable to perform standing pelvic tilt. Pt tends to compensate her movements mostly from thoracic spine during trunk movements. Pt cont max cues for movements guidance. She also cont presents mild hip drop during SLS due to insufficient B hip strength. Physical Therapy Plan Next Visit Focus/Plan Next Note Type Treatment Note Next Visit Plan Cont with hip, R knee, back strengthening. Focus on progression of balance training to normalize gait and modalities as needed of pain management.
--- NOTE | 2018-09-09 15:27 | PT.OTN ---
Current Diagnoses Trochanteric bursitis, right hip (09/09/18) Physical Therapy Treatment Note PT-OP-A Visit Information Start: 07/30/18 17:20 Freq: Status: Active Protocol: Document 09/09/18 12:47 LRN (Rec: 09/09/18 13:33 LRN [id number]) Out-Patient Physical Therapy Visit Information Visit Information Visit Type Treatment Note Visit Start Time 12:45 Visit Stop Time 01:32 Total Visit Minutes 47 Visit Number 8 Number of STONE PRODUCT FABRICATOR Visits 0 Evaluation Information Evaluation Date 08/02/18 PT-OP-B Current Condition Start: 07/30/18 17:20 Freq: Status: Active Protocol: Document 08/02/18 13:35 LRN (Rec: 08/02/18 14:51 LRN [id number]) Current Condition History of Current Condition Onset Date 1 month ago Current Complaints Can't walk without R lateral hip hurting, needs cane History of Current Condition R hip pain of insidious onset that kept worsening to this point. Pain is 0-5/10. No pain with sitting, walking worsens with distance/time. After 12 steps feels like leg will give out. Has fallen a couple times (last time fell 07/22/18 while outside fell to the right) because she trips on the cane (using the cane on the left side). When down she can't get up because core strength is poor. Cane use for 1 month. Prior Treatments and Tests Cortisone injection in R hip with +response for only 15 minutes. Future Testing and Treatments Planned MD follow up 6 weeks from today (~09/07/18). Treatment Goals Patient/Caregiver Goals Pt goal is to be able to walk without pain and without the cane. Prior Functional Status Baseline Function- ADL's Independent Baseline Function- Mobility Independent Baseline Function- Gait 100' without assist device. Baseline Function- Recreation/Hobbies Can't garden Current Functional Impairments (Reported) Functional Limitations- ADL's Walking from one end to the house to the other (75'). Sometimes getting in/out of shower, trouble getting up/ down from regular toilet, Functional Limitations- Mobility/Gait Walking 100' with cane Personal Factors Other Personal Factors That May Effect Lives alone, Chronicity of Therapy/Recovery condition, failed response to Cortisone injection, history of L AUGUSTO and glo TKA. PT-OP-C Subjective Start: 07/30/18 17:20 Freq: Status: Active Protocol: Document 09/09/18 12:47 LRN (Rec: 09/09/18 13:33 LRN [id number]) OP-PT Subjective Patient Comments Patient Comments Back gets sore and tired. No more hip or knee pain. Saw Dr Welsh 2 days ago and was released from his care. PT-OP-D Balance Start: 07/30/18 17:20 Freq: Status: Active Protocol: Document 08/02/18 13:35 LRN (Rec: 08/02/18 16:39 LRN [id number]) Balance Tests Single Limb Standing Single Limb- Right 0 Single Limb- Left 1 Other Other Balance Tests Performed Pt did not feels safe SLS without assist to start. PT-OP-E Functional Tests Start: 07/30/18 17:20 Freq: Status: Active Protocol: Document 08/30/18 12:48 LRN (Rec: 08/30/18 14:08 LRN [id number]) Functional Tests Timed Up and Go (TUG) Score 25 Comments Without cane TUG Impairment Rating 100% Impaired (Score 20) PT-OP-F Manual Assessment Start: 07/30/18 17:20 Freq: Status: Active Protocol: Document 08/02/18 13:35 LRN (Rec: 08/02/18 16:39 LRN [id number]) Manual Assessments Soft Tissue Assessment Soft Tissue Mobility Assessment Pain at R greater trochanter with greatest pain inferiorly and at hip ER tendonous attachments. Denies pain at IT Band. PT-OP-G Mobility & Gait Start: 07/30/18 17:20 Freq: Status: Active Protocol: Document 08/05/18 13:30 LRN (Rec: 08/05/18 14:31 LRN [id number]) Stair Climbing Evaluation Evaluation Level of Assist On Stairs Independent Devices Stair Climbing Assistive Devices Straight Cane Left Railing Right Railing Comments Stair Climbing Comments Pt can do step over step on 4 step. On 6 step ascend/ descend with step to step gait . PT-OP-H Neuro Start: 07/30/18 17:20 Freq: Status: Active Protocol: Document 08/02/18 13:35 LRN (Rec: 08/02/18 16:39 LRN [id number]) Sensation Evaluation Gross Sensation Gross Sensation WNL Deep Tendon Reflex & Clonus Assessment Deep Tendon Reflex Bilateral Patellar Deep Tendon Reflex 1+ Diminished Bilateral Achilles Deep Tendon Reflex 0 Absent PT-OP-J Posture/Palpation/Skin Start: 07/30/18 17:20 Freq: Status: Active Protocol: Document 08/02/18 13:35 LRN (Rec: 08/02/18 16:39 LRN [id number]) Posture Evaluation Comments Posture Comments In standing: Pt has a mildly wide stance, mildly forward bent at hips, decreased lumbar lordosis, increased mid thoracic kyphosis, and increased R shoulder height. Palpation Assessment Location R hip Palpation Location R greater trochanter Palpation Findings Tenderness Palpation Details Pain at greater trochanter, inferiorly and posteriorly at hip ER tendons. PT-OP-K Range of Motion Start: 07/30/18 17:20 Freq: Status: Active Protocol: Document 08/02/18 13:35 LRN (Rec: 08/02/18 16:39 LRN [id number]) Hip Goniometric Range of Motion Hip Measured in Degrees Right Active Testing Position Sitting External Rotation 0 Right Passive Testing Position Supine Internal Rotation 20 External Rotation 75 Left Passive Testing Position Supine Abduction 35 Internal Rotation 35 External Rotation 45 Hip ROM Limitations Comments Passive Hip AD (in supine): 25 deg's left, 15 deg's right. PT-OP-M Strength Start: 07/30/18 17:20 Freq: Status: Active Protocol: Document 08/02/18 13:35 LRN (Rec: 08/02/18 16:39 LRN [id number]) Hip Strength Hip Manual Muscle Testing Right Flexion (L2) 3 Fair Extension (S1) 2- Poor- Abduction 2- Poor- Adduction 2- Poor- External Rotation 4 Good Internal Rotation 3 Fair Left Flexion (L2) 3 Fair Extension (S1) 2- Poor- Abduction 2- Poor- Adduction 1 Trace External Rotation 2- Poor- Internal Rotation 3 Fair Knee Strength Knee Manual Muscle Testing Right Reason Not Measured WFL Left Reason Not Measured WFL PT-OP-Q Treatments Start: 07/30/18 17:20 Freq: Status: Active Protocol: Document 09/09/18 12:47 LRN (Rec: 09/09/18 13:33 LRN [id number]) Therapeutic Exercises Supine Exercises 1 Supine Exercise Name Bridging Side bilateral Reps/Minutes 14x, 10 x 2 Comments with resisted ER Sidelying Exercises Clamshell Side bilateral Reps/Minutes 6' Sitting Exercises seated pelvic tilt Reps/Minutes 10x Standing Exercises Single leg stance Reps/Minutes 3 secs hold x 3 x 3 Squat Standing Exercise Name squat hold Reps/Minutes 5 x 2 Comments without touching the chair Hip AB Standing Exercise Name AB, R>L, freestanding & w/back against wall Side bilateral Equipment Used Railing Reps/Minutes 10x each Comments Assist and training required with one sit rest. Gait Training Gait Activity 1 Device Used With & without Cane Level of Assistance Min A and verbal cuing Surface Level Distance/Duration 20' Treatment Focus Weight shift left without shoulder leaning. PT-OP-R Modalities Start: 07/30/18 17:20 Freq: Status: Active Protocol: Document 09/02/18 11:29 LRN (Rec: 09/02/18 13:22 LRN [id number]) Hot Pack/Cold Pack Treatment Cold Pack Location Low back Patient Position Supine Treatment Duration (minutes) 10 Patient Tolerance Good PT-OP-T Assessment and Plan Start: 07/30/18 17:20 Freq: Status: Active Protocol: Document 09/09/18 12:47 LRN (Rec: 09/09/18 13:33 LRN [id number]) Physical Therapy Assessment Goals Four Impairment Decreased hip mobility with R hip pain. Intermediate Goal (LTG) Pt will improve hip mobility and be able to don socks without hip pain and walk with decreased hip pain. LTG Duration (Goal Met 08/30/18) Three Impairment Decreased hip and core strength Intermediate Goal (LTG) Pt will be able to walk at her baseline level without a cane . LTG Duration 10/05/18 Two Impairment Decreased balance Intermediate Goal (LTG) Pt will be able to walk safely without a cane LTG Duration 10/05/18 One Impairment Lacks self correction program Equipment Operat0R Goal (LTG) Pt will be independent with a home exercise program. LTG Duration 10/05/18 Assessment Summary Assessment Pt feels she would like to be placed on HEP due to financial concerns. Pt is very weak in Gl[place] with Trendelenburg type gait on the right, although left is also very weak. Back fatigues and becomes sore. Physical Therapy Plan Frequency and Duration Frequency of Treatment 2x/Week Plan of Care Start Date 08/02/18 Plan of Care End Date 10/05/18 Next Visit Focus/Plan Next Note Type Treatment Note Next Visit Plan Progress onto independent HEP in 2 visits.
--- NOTE | 2018-09-13 15:29 | PT.OTN ---
Current Diagnoses Trochanteric bursitis, right hip (09/13/18) Physical Therapy Treatment Note PT-OP-A Visit Information Start: 07/30/18 17:20 Freq: Status: Active Protocol: Document 09/13/18 12:50 LRN (Rec: 09/13/18 13:37 LRN [id number]) Out-Patient Physical Therapy Visit Information Visit Information Visit Type Progress Note Visit Start Time 12:50 Visit Stop Time 13:35 Total Visit Minutes 40 Visit Number 10 Number of LAMP REPLACER Visits 0 Evaluation Information Evaluation Date 08/02/18 PT-OP-B Current Condition Start: 07/30/18 17:20 Freq: Status: Active Protocol: Document 08/02/18 13:35 LRN (Rec: 08/02/18 14:51 LRN [id number]) Current Condition History of Current Condition Onset Date 1 month ago Current Complaints Can't walk without R lateral hip hurting, needs cane History of Current Condition R hip pain of insidious onset that kept worsening to this point. Pain is 0-5/10. No pain with sitting, walking worsens with distance/time. After 12 steps feels like leg will give out. Has fallen a couple times (last time fell 07/22/18 while outside fell to the right) because she trips on the cane (using the cane on the left side). When down she can't get up because core strength is poor. Cane use for 1 month. Prior Treatments and Tests Cortisone injection in R hip with +response for only 15 minutes. Future Testing and Treatments Planned MD follow up 6 weeks from today (~09/07/18). Treatment Goals Patient/Caregiver Goals Pt goal is to be able to walk without pain and without the cane. Prior Functional Status Baseline Function- ADL's Independent Baseline Function- Mobility Independent Baseline Function- Gait 100' without assist device. Baseline Function- Recreation/Hobbies Can't garden Current Functional Impairments (Reported) Functional Limitations- ADL's Walking from one end to the house to the other (75'). Sometimes getting in/out of shower, trouble getting up/ down from regular toilet, Functional Limitations- Mobility/Gait Walking 100' with cane Personal Factors Other Personal Factors That May Effect Lives alone, Chronicity of Therapy/Recovery condition, failed response to Cortisone injection, history of L AUGUSTO and glo TKA. PT-OP-C Subjective Start: 07/30/18 17:20 Freq: Status: Active Protocol: Document 09/13/18 12:50 LRN (Rec: 09/13/18 13:37 LRN [id number]) OP-PT Subjective Patient Comments Patient Comments Weak, thats why I limp. Limped before this recent onset except it was because of back pain, now limping because of weakness in hip. PT-OP-D Balance Start: 07/30/18 17:20 Freq: Status: Active Protocol: Document 08/02/18 13:35 LRN (Rec: 08/02/18 16:39 LRN [id number]) Balance Tests Single Limb Standing Single Limb- Right 0 Single Limb- Left 1 Other Other Balance Tests Performed Pt did not feels safe SLS without assist to start. PT-OP-E Functional Tests Start: 07/30/18 17:20 Freq: Status: Active Protocol: Document 09/13/18 12:50 LRN (Rec: 09/13/18 13:37 LRN [id number]) Functional Tests Timed Up and Go (TUG) Score 21 Comments 21 secs with or without cane TUG Impairment Rating 0% Impaired (Score 10) PT-OP-F Manual Assessment Start: 07/30/18 17:20 Freq: Status: Active Protocol: Document 08/02/18 13:35 LRN (Rec: 08/02/18 16:39 LRN [id number]) Manual Assessments Soft Tissue Assessment Soft Tissue Mobility Assessment Pain at R greater trochanter with greatest pain inferiorly and at hip ER tendonous attachments. Denies pain at IT Band. PT-OP-G Mobility & Gait Start: 07/30/18 17:20 Freq: Status: Active Protocol: Document 08/05/18 13:30 LRN (Rec: 08/05/18 14:31 LRN [id number]) Stair Climbing Evaluation Evaluation Level of Assist On Stairs Independent Devices Stair Climbing Assistive Devices Straight Cane Left Railing Right Railing Comments Stair Climbing Comments Pt can do step over step on 4 step. On 6 step ascend/ descend with step to step gait . PT-OP-H Neuro Start: 07/30/18 17:20 Freq: Status: Active Protocol: Document 08/02/18 13:35 LRN (Rec: 08/02/18 16:39 LRN [id number]) Sensation Evaluation Gross Sensation Gross Sensation WNL Deep Tendon Reflex & Clonus Assessment Deep Tendon Reflex Bilateral Patellar Deep Tendon Reflex 1+ Diminished Bilateral Achilles Deep Tendon Reflex 0 Absent PT-OP-J Posture/Palpation/Skin Start: 07/30/18 17:20 Freq: Status: Active Protocol: Document 08/02/18 13:35 LRN (Rec: 08/02/18 16:39 LRN [id number]) Posture Evaluation Comments Posture Comments In standing: Pt has a mildly wide stance, mildly forward bent at hips, decreased lumbar lordosis, increased mid thoracic kyphosis, and increased R shoulder height. Palpation Assessment Location R hip Palpation Location R greater trochanter Palpation Findings Tenderness Palpation Details Pain at greater trochanter, inferiorly and posteriorly at hip ER tendons. PT-OP-K Range of Motion Start: 07/30/18 17:20 Freq: Status: Active Protocol: Document 08/02/18 13:35 LRN (Rec: 08/02/18 16:39 LRN [id number]) Hip Goniometric Range of Motion Hip Measured in Degrees Right Active Testing Position Sitting External Rotation 0 Right Passive Testing Position Supine Internal Rotation 20 External Rotation 75 Left Passive Testing Position Supine Abduction 35 Internal Rotation 35 External Rotation 45 Hip ROM Limitations Comments Passive Hip AD (in supine): 25 deg's left, 15 deg's right. PT-OP-M Strength Start: 07/30/18 17:20 Freq: Status: Active Protocol: Document 08/02/18 13:35 LRN (Rec: 08/02/18 16:39 LRN [id number]) Hip Strength Hip Manual Muscle Testing Right Flexion (L2) 3 Fair Extension (S1) 2- Poor- Abduction 2- Poor- Adduction 2- Poor- External Rotation 4 Good Internal Rotation 3 Fair Left Flexion (L2) 3 Fair Extension (S1) 2- Poor- Abduction 2- Poor- Adduction 1 Trace External Rotation 2- Poor- Internal Rotation 3 Fair Knee Strength Knee Manual Muscle Testing Right Reason Not Measured WFL Left Reason Not Measured WFL PT-OP-Q Treatments Start: 07/30/18 17:20 Freq: Status: Active Protocol: Document 09/13/18 12:50 LRN (Rec: 09/13/18 13:37 LRN [id number]) Gym Equipment Shuttle Recovery Unilateral Squats Details Shallow squat with glut squeeze Resistance 50# Shuttle Recovery Platform Stable Reps/Time 30x each leg Therapeutic Exercises Supine Exercises 1 Supine Exercise Name Bridging Side bilateral Reps/Minutes 15x2 Comments with resisted ER Sidelying Exercises Hip AB Sidelying Exercise Name Eccentric strengthening Side bilateral Reps/Minutes 10' Junior Hip AB Sidelying Exercise Name Hip AB with Blue T-Ball Side bilateral Reps/Minutes 6' Clamshell Side bilateral Reps/Minutes 6' Self-Care/Home Management Treatment Education Patient Education Home Exercise Program Activities Self-Care/Home Management Activities Issued and reviewed: Hip AB ex 's (side, and clamshell), bridge. PT-OP-R Modalities Start: 07/30/18 17:20 Freq: Status: Active Protocol: Document 09/02/18 11:29 LRN (Rec: 09/02/18 13:22 LRN [id number]) Hot Pack/Cold Pack Treatment Cold Pack Location Low back Patient Position Supine Treatment Duration (minutes) 10 Patient Tolerance Good PT-OP-T Assessment and Plan Start: 07/30/18 17:20 Freq: Status: Active Protocol: Document 09/13/18 12:50 LRN (Rec: 09/13/18 13:37 LRN [id number]) Physical Therapy Assessment Goals Four Impairment Decreased hip mobility with R hip pain. [employer] Electronic Goal (LTG) Pt will improve hip mobility and be able to don socks without hip pain and walk with decreased hip pain. LTG Duration (Goal Met 08/30/18) Three Impairment Decreased hip and core strength [employer] Goal (LTG) Pt will be able to walk at her baseline level without a cane . LTG Duration 10/05/18 Two Impairment Decreased balance Senior Living Goal (LTG) Pt will be able to walk safely without a cane LTG Duration 10/05/18 (09/13/18: Goal Met) One Impairment Lacks self long term program [employer] Goal (LTG) Pt will be independent with a home exercise program. LTG Duration 10/05/18 (09/13/18: Goal mostly met) Progress Towards Goals Progress Towards Goals Progressing Toward Goals Progress Comments Pt able to walk safely without a cane with a slow gait, small step lengths and a mild trendelenberg type gait. Assessment Summary Assessment HEP for trunk strengthening is needed and review of normal gait. Pt shows mild Trendelenberg gait without a cane. She reports no difficulty putting on her socks/shoes. L hip AB is weak also. Physical Therapy Plan Next Visit Focus/Plan Next Note Type Discharge Summary Next Visit Plan Issue HEP for trunk strengthening (rotation) & Recheck gait. Final training on gait and review of HEP.
--- NOTE | 2018-09-13 15:42 | PT.OPPN ---
Current Diagnoses Trochanteric bursitis, right hip (09/13/18) Physical Therapy Progress Note PT-OP-A Visit Information Start: 07/30/18 17:20 Freq: Status: Active Protocol: Document 09/13/18 12:50 LRN (Rec: 09/13/18 13:37 LRN [id number]) Out-Patient Physical Therapy Visit Information Visit Information Visit Type Progress Note Visit Start Time 12:50 Visit Stop Time 13:35 Total Visit Minutes 40 Visit Number 10 Number of FORMULA WEIGHER Visits 0 Evaluation Information Evaluation Date 08/02/18 PT-OP-B Current Condition Start: 07/30/18 17:20 Freq: Status: Active Protocol: Document 08/02/18 13:35 LRN (Rec: 08/02/18 14:51 LRN [id number]) Current Condition History of Current Condition Onset Date 1 month ago Current Complaints Can't walk without R lateral hip hurting, needs cane History of Current Condition R hip pain of insidious onset that kept worsening to this point. Pain is 0-5/10. No pain with sitting, walking worsens with distance/time. After 12 steps feels like leg will give out. Has fallen a couple times (last time fell 07/22/18 while outside fell to the right) because she trips on the cane (using the cane on the left side). When down she can't get up because core strength is poor. Cane use for 1 month. Prior Treatments and Tests Cortisone injection in R hip with +response for only 15 minutes. Future Testing and Treatments Planned MD follow up 6 weeks from today (~09/07/18). Treatment Goals Patient/Caregiver Goals Pt goal is to be able to walk without pain and without the cane. Prior Functional Status Baseline Function- ADL's Independent Baseline Function- Mobility Independent Baseline Function- Gait 100' without assist device. Baseline Function- Recreation/Hobbies Can't garden Current Functional Impairments (Reported) Functional Limitations- ADL's Walking from one end to the house to the other (75'). Sometimes getting in/out of shower, trouble getting up/ down from regular toilet, Functional Limitations- Mobility/Gait Walking 100' with cane Personal Factors Other Personal Factors That May Effect Lives alone, Chronicity of Therapy/Recovery condition, failed response to Cortisone injection, history of L AUGUSTO and glo TKA. PT-OP-C Subjective Start: 07/30/18 17:20 Freq: Status: Active Protocol: Document 09/13/18 12:50 LRN (Rec: 09/13/18 13:37 LRN [id number]) OP-PT Subjective Patient Comments Patient Comments Weak, thats why I limp. Limped before this recent onset except it was because of back pain, now limping because of weakness in hip. PT-OP-D Balance Start: 07/30/18 17:20 Freq: Status: Active Protocol: Document 08/02/18 13:35 LRN (Rec: 08/02/18 16:39 LRN [id number]) Balance Tests Single Limb Standing Single Limb- Right 0 Single Limb- Left 1 Other Other Balance Tests Performed Pt did not feels safe SLS without assist to start. PT-OP-E Functional Tests Start: 07/30/18 17:20 Freq: Status: Active Protocol: Document 09/13/18 12:50 LRN (Rec: 09/13/18 13:37 LRN [id number]) Functional Tests Timed Up and Go (TUG) Score 21 Comments 21 secs with or without cane TUG Impairment Rating 0% Impaired (Score 10) PT-OP-F Manual Assessment Start: 07/30/18 17:20 Freq: Status: Active Protocol: Document 08/02/18 13:35 LRN (Rec: 08/02/18 16:39 LRN [id number]) Manual Assessments Soft Tissue Assessment Soft Tissue Mobility Assessment Pain at R greater trochanter with greatest pain inferiorly and at hip ER tendonous attachments. Denies pain at IT Band. PT-OP-G Mobility & Gait Start: 07/30/18 17:20 Freq: Status: Active Protocol: Document 08/05/18 13:30 LRN (Rec: 08/05/18 14:31 LRN [id number]) Stair Climbing Evaluation Evaluation Level of Assist On Stairs Independent Devices Stair Climbing Assistive Devices Straight Cane Left Railing Right Railing Comments Stair Climbing Comments Pt can do step over step on 4 step. On 6 step ascend/ descend with step to step gait . PT-OP-H Neuro Start: 07/30/18 17:20 Freq: Status: Active Protocol: Document 08/02/18 13:35 LRN (Rec: 08/02/18 16:39 LRN [id number]) Sensation Evaluation Gross Sensation Gross Sensation WNL Deep Tendon Reflex & Clonus Assessment Deep Tendon Reflex Bilateral Patellar Deep Tendon Reflex 1+ Diminished Bilateral Achilles Deep Tendon Reflex 0 Absent PT-OP-J Posture/Palpation/Skin Start: 07/30/18 17:20 Freq: Status: Active Protocol: Document 08/02/18 13:35 LRN (Rec: 08/02/18 16:39 LRN [id number]) Posture Evaluation Comments Posture Comments In standing: Pt has a mildly wide stance, mildly forward bent at hips, decreased lumbar lordosis, increased mid thoracic kyphosis, and increased R shoulder height. Palpation Assessment Location R hip Palpation Location R greater trochanter Palpation Findings Tenderness Palpation Details Pain at greater trochanter, inferiorly and posteriorly at hip ER tendons. PT-OP-K Range of Motion Start: 07/30/18 17:20 Freq: Status: Active Protocol: Document 08/02/18 13:35 LRN (Rec: 08/02/18 16:39 LRN [id number]) Hip Goniometric Range of Motion Hip Measured in Degrees Right Active Testing Position Sitting External Rotation 0 Right Passive Testing Position Supine Internal Rotation 20 External Rotation 75 Left Passive Testing Position Supine Abduction 35 Internal Rotation 35 External Rotation 45 Hip ROM Limitations Comments Passive Hip AD (in supine): 25 deg's left, 15 deg's right. PT-OP-M Strength Start: 07/30/18 17:20 Freq: Status: Active Protocol: Document 08/02/18 13:35 LRN (Rec: 08/02/18 16:39 LRN [id number]) Hip Strength Hip Manual Muscle Testing Right Flexion (L2) 3 Fair Extension (S1) 2- Poor- Abduction 2- Poor- Adduction 2- Poor- External Rotation 4 Good Internal Rotation 3 Fair Left Flexion (L2) 3 Fair Extension (S1) 2- Poor- Abduction 2- Poor- Adduction 1 Trace External Rotation 2- Poor- Internal Rotation 3 Fair Knee Strength Knee Manual Muscle Testing Right Reason Not Measured WFL Left Reason Not Measured WFL PT-OP-T Assessment and Plan Start: 07/30/18 17:20 Freq: Status: Active Protocol: Document 09/13/18 12:50 LRN (Rec: 09/13/18 13:37 LRN [id number]) Physical Therapy Assessment Goals Four Impairment Decreased hip mobility with R hip pain. Skilled Nursing Goal (LTG) Pt will improve hip mobility and be able to don socks without hip pain and walk with decreased hip pain. LTG Duration (Goal Met 08/30/18) Three Impairment Decreased hip and core strength Skilled Nursing Goal (LTG) Pt will be able to walk at her baseline level without a cane . LTG Duration 10/05/18 Two Impairment Decreased balance Desktop Analyst Goal (LTG) Pt will be able to walk safely without a cane LTG Duration 10/05/18 (09/13/18: Goal Met) One Impairment Lacks self senior care program Desktop Analyst Goal (LTG) Pt will be independent with a home exercise program. LTG Duration 10/05/18 (09/13/18: Goal mostly met) Progress Towards Goals Progress Towards Goals Progressing Toward Goals Progress Comments Pt able to walk safely without a cane with a slow gait, small step lengths and a mild trendelenberg type gait. Assessment Summary Assessment HEP for trunk strengthening is needed and review of normal gait. Pt shows mild Trendelenberg gait without a cane. She reports no difficulty putting on her socks/shoes. L hip AB is weak also. Physical Therapy Plan Next Visit Focus/Plan Next Note Type Discharge Summary Next Visit Plan Issue HEP for trunk strengthening (rotation) & Recheck gait. Final training on gait and review of HEP.
--- NOTE | 2018-09-16 14:05 | PT.OTN ---
Current Diagnoses Trochanteric bursitis, right hip (09/16/18) Physical Therapy Treatment Note PT-OP-A Visit Information Start: 07/30/18 17:20 Freq: Status: Active Protocol: Document 09/16/18 12:50 LRN (Rec: 09/16/18 14:04 LRN [id number]) Out-Patient Physical Therapy Visit Information Visit Information Visit Type Treatment Note Visit Start Time 12:50 Visit Stop Time 13:40 Total Visit Minutes 50 Visit Number 10 Number of SHOP GIRL Visits 0 Evaluation Information Evaluation Date 08/02/18 PT-OP-B Current Condition Start: 07/30/18 17:20 Freq: Status: Active Protocol: Document 08/02/18 13:35 LRN (Rec: 08/02/18 14:51 LRN [id number]) Current Condition History of Current Condition Onset Date 1 month ago Current Complaints Can't walk without R lateral hip hurting, needs cane History of Current Condition R hip pain of insidious onset that kept worsening to this point. Pain is 0-5/10. No pain with sitting, walking worsens with distance/time. After 12 steps feels like leg will give out. Has fallen a couple times (last time fell 07/22/18 while outside fell to the right) because she trips on the cane (using the cane on the left side). When down she can't get up because core strength is poor. Cane use for 1 month. Prior Treatments and Tests Cortisone injection in R hip with +response for only 15 minutes. Future Testing and Treatments Planned MD follow up 6 weeks from today (~09/07/18). Treatment Goals Patient/Caregiver Goals Pt goal is to be able to walk without pain and without the cane. Prior Functional Status Baseline Function- ADL's Independent Baseline Function- Mobility Independent Baseline Function- Gait 100' without assist device. Baseline Function- Recreation/Hobbies Can't garden Current Functional Impairments (Reported) Functional Limitations- ADL's Walking from one end to the house to the other (75'). Sometimes getting in/out of shower, trouble getting up/ down from regular toilet, Functional Limitations- Mobility/Gait Walking 100' with cane Personal Factors Other Personal Factors That May Effect Lives alone, Chronicity of Therapy/Recovery condition, failed response to Cortisone injection, history of L AUGUSTO and glo TKA. PT-OP-C Subjective Start: 07/30/18 17:20 Freq: Status: Active Protocol: Document 09/16/18 12:50 LRN (Rec: 09/16/18 14:04 LRN [id number]) OP-PT Subjective Patient Comments Patient Comments No hip pain with walking. Pain is in the back. Patient Questionnaires Lower Extremity Functional Scale LEFS Score 25 LEFS Impairment 60 to 79% Impaired (Score 17- 31) OP-PT Pain Assessment Pain Assessment Grid Paper Pain Assessment Grid Completed Yes Location Low Back Pain Location Details Across Low back Intensity 1 Scale Used Numeric (1 - 10) Frequency Intermittent R hip Intensity 0 PT-OP-D Balance Start: 07/30/18 17:20 Freq: Status: Active Protocol: Document 08/02/18 13:35 LRN (Rec: 08/02/18 16:39 LRN [id number]) Balance Tests Single Limb Standing Single Limb- Right 0 Single Limb- Left 1 Other Other Balance Tests Performed Pt did not feels safe SLS without assist to start. PT-OP-E Functional Tests Start: 07/30/18 17:20 Freq: Status: Active Protocol: Document 09/13/18 12:50 LRN (Rec: 09/13/18 13:37 LRN [id number]) Functional Tests Timed Up and Go (TUG) Score 21 Comments 21 secs with or without cane TUG Impairment Rating 0% Impaired (Score 10) PT-OP-F Manual Assessment Start: 07/30/18 17:20 Freq: Status: Active Protocol: Document 08/02/18 13:35 LRN (Rec: 08/02/18 16:39 LRN [id number]) Manual Assessments Soft Tissue Assessment Soft Tissue Mobility Assessment Pain at R greater trochanter with greatest pain inferiorly and at hip ER tendonous attachments. Denies pain at IT Band. PT-OP-G Mobility & Gait Start: 07/30/18 17:20 Freq: Status: Active Protocol: Document 09/16/18 12:50 LRN (Rec: 09/16/18 14:04 LRN [id number]) OP Gait Assessment Gait Gait Assistance Required: Independent Able to Maintain Weight Bearing Status Yes During Gait Assistive Devices Assistive Device Straight Cane Gait Deviations General Gait Pattern Lateral Trunk Lean Factors Limiting Gait Function Factors Limiting Gait Function Decreased Strength PT-OP-H Neuro Start: 07/30/18 17:20 Freq: Status: Active Protocol: Document 08/02/18 13:35 LRN (Rec: 08/02/18 16:39 LRN [id number]) Sensation Evaluation Gross Sensation Gross Sensation WNL Deep Tendon Reflex & Clonus Assessment Deep Tendon Reflex Bilateral Patellar Deep Tendon Reflex 1+ Diminished Bilateral Achilles Deep Tendon Reflex 0 Absent PT-OP-J Posture/Palpation/Skin Start: 07/30/18 17:20 Freq: Status: Active Protocol: Document 09/16/18 12:50 LRN (Rec: 09/16/18 14:04 LRN [id number]) Palpation Assessment Location R hip Palpation Location R greater trochanter Palpation Findings Tenderness PT-OP-K Range of Motion Start: 07/30/18 17:20 Freq: Status: Active Protocol: Document 09/16/18 12:50 LRN (Rec: 09/16/18 14:04 LRN [id number]) Hip Goniometric Range of Motion Hip Measured in Degrees Right Passive Internal Rotation 45 External Rotation 85 Left Passive Internal Rotation 80 External Rotation 55 PT-OP-M Strength Start: 07/30/18 17:20 Freq: Status: Active Protocol: Document 09/16/18 12:50 LRN (Rec: 09/16/18 14:04 LRN [id number]) Trunk Strength Trunk Manual Muscle Testing Core Stabilization Weakness with rotation noted during gait. PT-OP-Q Treatments Start: 07/30/18 17:20 Freq: Status: Active Protocol: Document 09/16/18 12:50 LRN (Rec: 09/16/18 14:04 LRN [id number]) Gym Equipment Cable Column (Body Solid) Leg Curl Resistance 20# Reps/Time 10 x Knee ext Resistance 20# Reps/Time 10 x Therapeutic Exercises Supine Exercises Hip IR ROM Supine Exercise Name Passive gentle stretch Comments ROM taken 4 Supine Exercise Name hookying hip ER stretch bilateral Comments ROM taken 2 Supine Exercise Name figure 4 stretch Sitting Exercises Trunk rot Side bilateral Resistance Lev 1 T-Band Reps/Minutes 6' Standing Exercises Golf Swing Side bilateral Resistance 0 Equipment Used Cane Comments Pt unable to achieve normal posturing after swing; therefore DC'd exercise. Wood Chop ex Side bilateral Resistance Lev 1 T-Band Reps/Minutes 5' Gait Training Gait Activity 1 Device Used With & without Cane Level of Assistance Min A and verbal cuing Surface Level Distance/Duration 15' Treatment Focus Weight shift left without shoulder leaning. Self-Care/Home Management Treatment Education Patient Education Home Exercise Program Activities Self-Care/Home Management Activities Issued and reviewed HEP: T band trunk rotation strengthening and abdominal strengthening (pelvic tilts and with heel slides, leg lift , marching. PT-OP-R Modalities Start: 07/30/18 17:20 Freq: Status: Active Protocol: Document 09/02/18 11:29 LRN (Rec: 09/02/18 13:22 LRN [id number]) Hot Pack/Cold Pack Treatment Cold Pack Location Low back Patient Position Supine Treatment Duration (minutes) 10 Patient Tolerance Good PT-OP-T Assessment and Plan Start: 07/30/18 17:20 Freq: Status: Active Protocol: Document 09/16/18 12:50 LRN (Rec: 09/16/18 14:04 LRN [id number]) Physical Therapy Assessment Goals Four Impairment Decreased hip mobility with R hip pain. Group Home Goal (LTG) Pt will improve hip mobility and be able to don socks without hip pain and walk with decreased hip pain. LTG Duration (Goal Met 08/30/18) Three Impairment Decreased hip and core strength Tooling Inspector Goal (LTG) Pt will be able to walk at her baseline level without a cane . LTG Duration 10/05/18 (09/16/18: Goal Not Met) Two Impairment Decreased balance Group Home Goal (LTG) Pt will be able to walk safely without a cane LTG Duration 10/05/18 (09/13/18: Goal Met) One Impairment Lacks self retirement program Tooling Inspector Goal (LTG) Pt will be independent with a home exercise program. LTG Duration 10/05/18 (09/13/18: Goal met) Assessment Summary Assessment The pt feels ready to be placed on a home exercise program to continue working on improving her LE strength and normalizing her gait. She shows mild Trendelenberg gait without a cane. She reports no difficulty putting on her socks/shoes. She is not yet at her baseline for gait because of Hip AB and core weakness. For safety with gait it was recommended to the patient to continue using her cane for balance assist. Physical Therapy Plan Discharge Physical Therapy Discharge Reasons Patient Request Discharge Comments Pt feels ready to continue with a HEP of hip and core strengthening and practicing gait without a cane. The pt has been issued a HEP to address areas of weakness. The pt may need therapy for core strengthening if pain returns in the R hip and core weakness persists. Thank you for your physical therapy referral.
== END 2018-09-16 14:45 ==
LOC: PHYS 12:45
PROVIDERS: Family Provider Family Medicine; PCP Family Medicine; Visit Provider Orthopaedic Surgery
DX: M70.61 Trochanteric bursitis, right hip (principal)
CPT/HCPCS: 97035; 97110; 97112; 97116; 97140; 97161; 97535

== ENCOUNTER → 2018-11-17 08:26 | Outpatient (CLI) | payer MEDICARE, SELFPAY ==
[2018-11-17 09:52] LABS: Add Manual Diff / Slide Review NO; Basophils Absolute Auto 0 /uL (0-100); Basophils Percent Auto 0.4 % (0-2); Eosinophils Absolute Auto 300 /uL (0-450); Eosinophils Percent Auto 5.4 % (2-4); Hematocrit 40.6 % (36-46); Hemoglobin 13.5 g/dL (12.0-16.0); Lymphocytes Absolute Auto 1400 /uL (1100-4500); Mean Corpuscular HGB Conc 33.2 % (30-36); Mean Corpuscular Hemoglobin 30.9 PG (26-34); Monocytes Absolute Auto 400 /uL (0-900); Monocytes Percent Auto 7.3 % (3-14); Neutrophils Absolute Auto 3700 /uL (1500-7000); Neutrophils Percent Auto 62.9 % (50-75); Platelet Count 208 X10^3/uL (150-400); Red Blood Cell Count 4.37 X10^6/uL (4.0-5.2); Red Cell Distribution Width 13.7 % (11.6-14.8); White Blood Cell Count 5.8 X10^3/uL (4.5-11.0)
[2018-11-17 10:17] LABS: Alanine Aminotransferase 30 IU/L (9-52); Albumin 4.6 g/dL (3.5-5.0); Albumin Globulin Ratio 1.5 (1.0-2.8); Alkaline Phosphatase 94 U/L (38-126); Aspartate Aminotransferase 22 IU/L (14-36); BUN Creatinine Ratio 21.3 (6-22); Bilirubin Total 0.5 mg/dL (0.2-1.3); Blood Urea Nitrogen 17 mg/dL (7-17); Calcium 10.4 mg/dL (8.4-10.2); Carbon Dioxide 27 mmol/L (22-32); Chloride 101 mmol/L (98-107); Cholesterol 149 mg/dL (140-199); Estimated Glomerular Filt Rate > 60.0 mL/min (>60); Glucose 154 mg/dL (80-110); HDL Cholesterol 37 mg/dL (40-60); HEMOLYSIS < 15 (0-50); LDL Cholesterol Calculated 41 mg/dL (<100); Potassium 4.3 mmol/L (3.4-5.1); Sodium 139 mmol/L (137-145); Total Protein 7.6 g/dL (6.3-8.2); Triglycerides 354 mg/dL (35-150)
[2018-11-17 10:42] LABS: TSH w/ Reflex to FT4 2.82 uIU/mL (0.47-4.68)
== END ==
PROVIDERS: PCP Family Medicine; Visit Provider Family Medicine
DX: E11.9 Type 2 diabetes mellitus without complications (principal); E78.5 Hyperlipidemia, unspecified; I10 Essential (primary) hypertension
CPT/HCPCS: 36415; 80053; 80061; 84443; 85025

== ENCOUNTER → 2018-11-23 12:54 | Outpatient (CLI) | payer MEDICARE, SELFPAY ==
[2018-11-23 13:49] LABS: Hemoglobin A1C% w Est Avg Glu 6.4 % (4.0-6.0)
== END ==
PROVIDERS: PCP Family Medicine; Visit Provider Family Medicine
DX: E11.9 Type 2 diabetes mellitus without complications (principal)
CPT/HCPCS: 36415; 83036

== ENCOUNTER → 2018-12-01 11:56 | Outpatient (CLI) | payer MEDICARE, SELFPAY ==
--- NOTE | 2018-12-01 11:59 | DI.RAD.S_ITS ---
PROCEDURE: XR SHOULDER RT MIN 2V INDICATIONS: rt shoulder pain TECHNIQUE: 3 views of the shoulder were acquired. COMPARISON: [facility], SHOULDER MINIMUM 2 VIEW LEFT, 09/02/2011, 13:17. [facility], SHOULDER MINIMUM 2VIEW RIGHT, 09/02/2011, 13:14. FINDINGS: Bones: No fractures or dislocations. No suspicious bony lesions. Visualized ribs appear intact. Soft tissues: No suspicious soft tissue calcifications. 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 Dictated by: John Barber M.D. on 12/01/2018 at 13:47 Approved by: John Barber M.D. on 12/01/2018 at 13:48
== END ==
PROVIDERS: PCP Family Medicine; Visit Provider Family Medicine
DX: M25.511 Pain in right shoulder (principal); M25.711 Osteophyte, right shoulder; M75.01 Adhesive capsulitis of right shoulder; M75.02 Adhesive capsulitis of left shoulder
CPT/HCPCS: 73030

== ENCOUNTER 2018-12-18 13:00 | Observation (INO) | payer MEDICARE, SELFPAY ==
[2018-12-18] VITALS (8 sets, daily range): BP systolic 121–148; BP diastolic 58–111; PULSE 68–90; RESP 12–20; TEMP 36.6–36.9; O2SAT 95–100; BMI 31.5
--- NOTE | 2018-12-18 13:15 | ED.WEAKNESS ---
HPI - Weakness General Chief complaint: Fall Stated complaint: Leg weakness Time Seen by Provider: 12/18/18 13:08 Source: patient and EMS Mode of arrival: EMS History of Present Illness HPI Narrative: Patient is an 78-year-old female who lives alone. EMS has been called out to her house 3 times in the last 24 hours. She states that her legs get extremely weak and she feels like they are Jell-O. Whenever she stands up they just fall out from under her. Her left leg does seem to be weaker than her right leg. She has no arm weakness she has chronic ongoing shoulder pain. No chest pain heart palpitations shortness of breath dizziness nausea vomiting or abdominal pain. she says yesterday she fell twice as well she got wrapped up in a cord and fell down. She denies injuring herself at that time. She denies any loss of consciousness head injury. EMS also reported that she between falls stayed on the ground for about 4 hours at a time. MD Complaint: generalized weakness Location: LLE and RLE Migration: none Related Data Home Medications Medication Instructions Recorded Confirmed CA PANTOTHENATE/FOLIC ACID/VIT 1 tab PO Q DAY #0 08/25/11 12/01/18 (MULTIVITAMIN) Calcium Carbonate/Vitamin D 1 cap PO Q DAY #0 08/25/11 12/01/18 (#CALCIUM) Fish Oil (#FISH OIL) 1 iu PO Q DAY #0 08/25/11 12/01/18 latanoprost [Xalatan] 1 drp OPHTH QDAY #0 08/25/11 12/01/18 indomethacin 50 mg PO PRN PRN #0 03/26/16 12/01/18 aspirin 81 mg PO QDAY #30 tab 04/02/16 12/01/18 Previous Rx's Medication Instructions Recorded atorvastatin 10 mg tablet 10 mg PO EVERY OTHER DAY #45 tab 12/01/18 hydrocodone 5 mg-acetaminophen 325 1 tab PO BID PRN #40 tab 12/01/18 mg tablet lisinopril 40 mg tablet 40 mg PO QDAY #90 tab 12/01/18 metformin ER 500 mg 500 mg PO BID #180 tab 12/01/18 tablet,extended release 24 hr Allergies Allergy/AdvReac Type Severity Reaction Status Date / Time oxycodone Allergy Severe PSYCHOTIC Verified 12/01/18 11:04 EPISODES diphenhydramine Allergy Mild FLU LIKE Verified 12/01/18 11:04 SYMPTOMS hydrochlorothiazide Allergy Mild UNKNOWN Verified 12/01/18 11:04 Review of Systems Review of Systems ROS Unobtainable: All systems reviewed & are unremarkable except as noted in HPI and below Constitutional Denies chills, Denies fever(s), Denies lethargy and Denies weakness Eyes Denies change in vision, Denies eye discharge, Denies irritation and Denies loss of vision ENT Ears, Nose, Mouth, and Throat: Denies change in voice, Denies neck pain and Denies sore throat Cardiovascular Denies chest pain, Denies irregular heart rhythm, Denies lightheadedness, Denies palpitations, Denies dyspnea, Denies dyspnea on exertion and Denies orthopnea Respiratory Denies cough, Denies dyspnea, Denies dyspnea on exertion and Denies wheezing Gastrointestinal Gastrointestinal: Denies abdominal pain, Denies change in bowel habits, Denies diarrhea, Denies nausea and Denies vomiting Genitourinary Denies hematuria, Denies flank pain, Denies urinary incontinence and Denies urinary urgency Musculoskeletal Reports as per HPI and Denies neck pain Integumentary/Breasts Denies pruritus, Denies erythema, Denies rash and Denies wounds Neurologic Denies loss of vision and Denies weakness Endocrine Denies palpitations Allergic/Immunologic Denies wheezing [facility] Medical History Diabetes mellitus (Chronic 08/2000) Glaucoma (Chronic 09/2004) Hyperlipidemia (Chronic) Hypertension (Chronic) Lumbar spinal stenosis (Chronic) Osteoarthritis (Chronic) Urinary incontinence (Chronic 08/2009) Cataract (Resolved 2012) Gout (Resolved ~10/1995) Surgical History Anesthesia (Resolved) History of cataract removal with insertion of prosthetic lens (Resolved) History of hip replacement (Resolved) History of knee replacement (Resolved 04/2009) History of knee replacement (Resolved 07/2010) History of open reduction and internal fixation (ORIF) procedure (Resolved) Status post cholecystectomy (Resolved 08/1998) Status post discectomy (Resolved 06/2014) Family History (Updated 05/21/18 @ 12:14 by Lucrecia Steen) Brother No problems noted. Father CAD (coronary artery disease) Arteriosclerosis Mother No problems noted. Sister No problems noted. Family/Other Arteriosclerosis Family/Other No problems noted. Family/Other No problems noted. Social History marital status: Smoking Status: Never smoker alcohol intake: current (ON OCCASION ) substance use type: does not use Family History Brother No problems noted. Father CAD (coronary artery disease) Arteriosclerosis Mother No problems noted. Sister No problems noted. Family/Other Arteriosclerosis Family/Other No problems noted. Family/Other No problems noted. Social History marital status: household members: none Smoking Status: Never smoker alcohol intake: current substance use type: does not use Exam Initial Vital Signs Initial Vital Signs: Vital Signs Temperature 97.8 F 12/18/18 13:08 Pulse Rate 90 12/18/18 13:08 Respiratory Rate 18 12/18/18 13:08 Blood Pressure 147/111 H 12/18/18 13:08 Pulse Oximetry 100 12/18/18 13:08 GENERAL: Alert pleasant elderly female no acute distress has no pain HEENT: Head atraumatic,EOMI, pupils reactive, face symmetric CARDIOVASCULAR: Regular rate and rhythm without murmurs, rubs or gallops. RESPIRATORY: Breath sounds equal bilaterally, no wheezes rales or rhonchi. ABDOMEN: Soft, nontender. Normoactive bowel sounds all 4 quadrants. No guarding or rebound. EXTREMITIES: Normal range of motion, no clubbing or edema. Neurovascularly intact. hips and pelvis nontender NEUROLOGICAL: Alert and oriented x4.Normal gait and speech. decreased strength in left leg it does drift to the gurney. No ataxia in any limb. No aphasia dysarthria. Print Line Operator strength equal bilaterally able to push and pull equally. SKIN: Warm, dry, no laceration, no petechiae, no rashes or lesions. Course Orders Ordered: ED Orders 12/18/18 13:25 EKG-12 Lead Stat 12/18/18 13:26 CT head/brain wo con Stat 12/18/18 14:00 Complete Blood Count AUTO DIFF Stat Comprehensive Metabolic Panel Stat Procalcitonin Stat Troponin & CK Cardiac Panel Stat 12/18/18 17:15 Consult to Occupational Therapy Evaluate & Treat Consult to Physical Therapy Evaluate & Treat Urinalysis and Microscopic Stat Education, smoking cessation ONGOING 12/19/18 05:00 Comprehensive Metabolic Panel Routine Acetaminophen (Tylenol) 650 mg PO Q6HR PRN PRN Reason: As Needed for Fever/Mild Pain Hydrocodone Bitart/Acetaminophen ([place] 5/325) 1 tab PO BID PRN PRN Reason: Pain, Moderate (4-6) Aspirin (Aspirin Ec) 81 mg PO DAILY MARYAN Atorvastatin Calcium (Lipitor) 10 mg PO EVERY OTHER DAY MARYAN Dextrose (D50w) 25 gm IV PRN PRN PRN Reason: Hypoglycemia Enoxaparin Sodium (Lovenox) 40 mg SUBCUT DAILY MARYAN Sodium Chloride (Normal Saline 0.9%) 1,000 mls @ 150 mls/hr IV CONT MARYAN Indomethacin (Indocin) 50 mg PO PRN PRN PRN Reason: Pain, Mild (1-3) Latanoprost (Xalatan) 1 drops EYE-BOTH BEDTIME MARYAN Lisinopril (Zestril) 40 mg PO DAILY MARYAN Discontinued Medications Atorvastatin Calcium (Lipitor) 10 mg PO EVERY OTHER DAY MARYAN Sodium Chloride (Normal Saline 0.9%) 1,000 mls @ 150 mls/hr IV CONT MARYAN Last Infusion: 12/18/18 16:37 Dose: 150 mls/hr Admin: 12/18/18 15:12 Dose: 150 mls/hr Vital Signs - 8 hr 12/18/18 13:08 12/18/18 14:02 12/18/18 15:00 Temperature 97.8 F Pulse Rate 90 82 75 Respiratory Rate 18 18 16 Blood Pressure 147/111 H Blood Pressure [Right Arm] 146/65 H 121/58 L Pulse Oximetry 100 96 95 12/18/18 15:30 12/18/18 16:30 Temperature Pulse Rate 83 83 Respiratory Rate 12 17 Blood Pressure Blood Pressure [Right Arm] 140/68 139/63 Pulse Oximetry 98 98 MDM - Weakness Lab Data Attestation: I reviewed the patient's lab results. Result diagrams: 12/18/18 14:00 12/18/18 14:00 Lab Results 12/18/18 12/18/18 12/18/18 Range/Units 14:00 14:00 14:00 WBC 8.5 (4.5-11.0) X10^3/uL RBC 4.43 (4.0-5.2) X10^6/uL Hgb 13.6 (12.0-16.0) g/dL Hct 41.5 (36-46) % MCV 93.6 (80-100) fL MCH 30.8 (26-34) PG MCHC 32.9 (30-36) % RDW 13.6 (11.6-14.8) % Plt Count 229 (150-400) X10^3/uL Neut % (Auto) 79.0 H (50-75) % Lymph % (Auto) 14.5 L (25-40) % [place] % (Auto) 5.0 (3-14) % Eos % (Auto) 1.0 L (2-4) % Baso % (Auto) 0.5 (0-2) % Neut # (Auto) 6700 (1505-8881) /uL Lymph # (Auto) 1200 (8397-1291) /uL [place] # (Auto) 400 (0-900) /uL Eos # (Auto) 100 (0-450) /uL Baso # (Auto) 0 (0-100) /uL Sodium 140 (137-145) mmol/L Potassium 4.8 (3.4-5.1) mmol/L Chloride 101 (98-107) mmol/L Carbon Dioxide 26 (22-32) mmol/L BUN 21 H (7-17) mg/dL Creatinine 0.80 (0.52-1.04) mg/dL Estimated GFR > 60.0 (>60) mL/min BUN/Creatinine Ratio 26.3 H (6-22) Glucose 154 H (80-110) mg/dL Calcium 10.5 H (8.4-10.2) mg/dL Total Bilirubin 1.3 (0.2-1.3) mg/dL AST 66 H (14-36) IU/L ALT 37 (9-52) IU/L Alkaline Phosphatase 93 (38-126) U/L Total Creatine Kinase 1238 H (30-135) U/L CK-MB (CK-2) 5.79 H (<2.37) ng/mL CK-MB (CK-2) Rel Index 0.5 L (1.5-5.0) % Troponin I < 0.012 (0.01-0.034) ng/mL Total Protein 8.5 H (6.3-8.2) g/dL Albumin 4.9 (3.5-5.0) g/dL Globulin 3.6 (1.7-4.1) g/dL Albumin/Globulin Ratio 1.4 (1.0-2.8) Procalcitonin 0.12 (<0.5) ng/mL Urine Dip Bedside Urine Glucose Negative Bedside Urine Bilirubin - Negative Bedside Urine Ketone +/- 5 Urine Specific [place] 1.030 Bedside Urine Occult Blood +/- Bedside Urine pH 5.5 Bedside Urine Protein +/- 15 Bedside Urine Urobilinogen - Negative Bedside Urine Nitrite + Positive Bedside Urine Leukocytes +++ [address] scan - head: Radiologist's impression: PROCEDURE: CT HEAD/BRAIN WO CON INDICATIONS: left leg weakness TECHNIQUE: Noncontrast 4.5 mm thick angled axial sections acquired from the foramen magnum to the vertex, with coronal and sagittal reformats. For radiation dose reduction, the following was used: automated exposure control, adjustment of mA and/or kV according to patient size. COMPARISON: None. FINDINGS: Image quality: Excellent. CSF spaces: Basal cisterns are patent. No extra-axial fluid collections. There is moderate diffuse cerebral volume loss. There is increased prominence of the bilateral lateral ventricles and third ventricle. Brain: No midline shift. No intracranial masses or hemorrhage. Zelaya-white matter interface is normal. Skull and face: Calvarium and visualized facial bones are intact, without suspicious lesions. Sinuses: Visualized sinuses and mastoids are clear. IMPRESSION: Increased prominence of the bilateral lateral ventricles and third ventricle, which may be benign secondary to moderate diffuse cerebral volume loss versus developing hydrocephalus. Clinical correlation recommended. Dictated by: Vicente Mark M.D. on 12/18/2018 at 14:06 ECG Data Attestation: I personally reviewed and interpreted this ECG as follows: Prior ECG tracings: available for review Interpretation: Normal sinus rhythm rate [address] changes MA interval 206 all similar to previous EKGs no changes prior MDM Narrative Medical decision making narrative: Patient overall has no complaints. CPK slightly elevated at 1200 she has fallen 3 times in 24 hours clearly unable to get herself up off of the ground. She does live alone and typically able to do her daily living activities. Her resides at [facility]. Dr. Dot Whitman accept the patient. Discharge Plan Departure Patient Disposition: Admitted as Observation Clinical Impression: Rhabdomyolysis Qualifiers: Rhabdomyolysis type: traumatic Encounter type: initial encounter Qualified Code(s): T79.6XXA - Traumatic ischemia of muscle, initial encounter Discharge Date/Time: 12/18/18 16:37 Interventions: ED Discharge Assessment Last Done: 12/18/18 16:36 Admit Date/Time: 12/18/18 16:22 Admit Provider: Liana Chris
--- NOTE | 2018-12-18 13:26 | DI.CT.S_ITS ---
PROCEDURE: CT HEAD/BRAIN WO CON INDICATIONS: left leg weakness TECHNIQUE: Noncontrast 4.5 mm thick angled axial sections acquired from the foramen magnum to the vertex, with coronal and sagittal reformats. For radiation dose reduction, the following was used: automated exposure control, adjustment of mA and/or kV according to patient size. COMPARISON: None. FINDINGS: Image quality: Excellent. CSF spaces: Basal cisterns are patent. No extra-axial fluid collections. There is moderate diffuse cerebral volume loss. There is increased prominence of the bilateral lateral ventricles and third ventricle. Brain: No midline shift. No intracranial masses or hemorrhage. Zelaya-white matter interface is normal. Skull and face: Calvarium and visualized facial bones are intact, without suspicious lesions. Sinuses: Visualized sinuses and mastoids are clear. IMPRESSION: Increased prominence of the bilateral lateral ventricles and third ventricle, which may be benign secondary to moderate diffuse cerebral volume loss versus developing hydrocephalus. Clinical correlation recommended. Dictated by: Vicente Mark M.D. on 12/18/2018 at 14:06 Approved by: Vicente Mark M.D. on 12/18/2018 at 14:15
--- NOTE | 2018-12-18 13:39 | PC.NURSE ---
pt reports falling twice yesterday, legs tangled. this morning at 830am, left leg jello fall and unable to get up. spouse at [facility], called ems. on arrival. left lower leg weakness noted.
--- NOTE | 2018-12-18 13:56 | PC.NURSE ---
pt requested to call [facility], left message to facilities. pt made aware.
[2018-12-18 14:14] LABS: Alanine Aminotransferase 37 IU/L (9-52); Albumin 4.9 g/dL (3.5-5.0); Albumin Globulin Ratio 1.4 (1.0-2.8); Alkaline Phosphatase 93 U/L (38-126); Aspartate Aminotransferase 66 IU/L (14-36); BUN Creatinine Ratio 26.3 (6-22); Bilirubin Total 1.3 mg/dL (0.2-1.3); Blood Urea Nitrogen 21 mg/dL (7-17); Calcium 10.5 mg/dL (8.4-10.2); Carbon Dioxide 26 mmol/L (22-32); Chloride 101 mmol/L (98-107); Creatine Kinase 1238 U/L (30-135); Estimated Glomerular Filt Rate > 60.0 mL/min (>60); Globulin 3.6 g/dL (1.7-4.1); Glucose 154 mg/dL (80-110); Potassium 4.8 mmol/L (3.4-5.1); Sodium 140 mmol/L (137-145); Total Protein 8.5 g/dL (6.3-8.2)
[2018-12-18 14:22] LABS: Add Manual Diff / Slide Review NO; Basophils Absolute Auto 0 /uL (0-100); Basophils Percent Auto 0.5 % (0-2); Eosinophils Absolute Auto 100 /uL (0-450); Hematocrit 41.5 % (36-46); Hemoglobin 13.6 g/dL (12.0-16.0); Lymphocytes Absolute Auto 1200 /uL (1100-4500); Lymphocytes Percent Auto 14.5 % (25-40); Mean Corpuscular HGB Conc 32.9 % (30-36); Mean Corpuscular Hemoglobin 30.8 PG (26-34); Mean Corpuscular Volume 93.6 fL (80-100); Monocytes Absolute Auto 400 /uL (0-900); Neutrophils Absolute Auto 6700 /uL (1500-7000); Platelet Count 229 X10^3/uL (150-400); Red Blood Cell Count 4.43 X10^6/uL (4.0-5.2); Red Cell Distribution Width 13.6 % (11.6-14.8); White Blood Cell Count 8.5 X10^3/uL (4.5-11.0)
[2018-12-18 14:26] LABS: HEMOLYSIS 91 (0-50); Troponin I < 0.012 ng/mL (0.01-0.034)
[2018-12-18 14:30] LABS: CKMB % Relative Index 0.5 % (1.5-5.0); Creatine Kinase MB 5.79 ng/mL (<2.37)
[2018-12-18] MEDS: SODIUM CHLORIDE 0.9% 1,000 ML 150 ML IV ×2 (15:12→18:27)
[2018-12-18 15:27] LABS: Procalcitonin 0.12 ng/mL (<0.5)
--- NOTE | 2018-12-18 15:51 | PC.NURSE ---
with one person assist.
--- NOTE | 2018-12-18 18:07 | P.HP_ITS ---
History of Present Illness Date Patient Seen: 12/18/18 Time Patient Seen: 17:00 Chief complaint: Leg weakness Narrative: Patient is an 78-year-old woman with type 2 diabetes, hypertension, and hyperlipidemia who presented with multiple ground level falls. The patient reports that yesterday morning at approximately 8:30 a.m. she fell at home when turning around quickly. She states that her ?legs just gave out on her. She denies any associated loss of consciousness, chest pain, shortness of breath, urinary incontinence. She did not hit her head. The patient was on the ground for approximately 7 hours prior to the paramedics arriving. The paramedics have been contacted by her who lives at [facility]. Patient states that she was unable to arise prior to that time due to her legs feeling too weak. The paramedics got the patient up to the couch and felt that she was safe to stay at home. A few hours later, she had another ground level fall. Again with no associated symptoms or loss of consciousness. She was on the ground for 4 hours prior to the paramedics being contacted, after she was able to crawl to the phone. She was then able to dress herself for bed, brush her teeth, and perform all normal bedtime activities. The patient was able to sleep overnight, rising to use the restroom at least once in the night. In the morning, the patient's legs gave out from under her 1 more time. This time, the patient was on the ground for approximately 6 hours prior to the paramedics arriving. They then took her to the ER for further evaluation. The patient states that prior to yesterday she had not had any falls at home since July. She does report that she is frequently ?clumsy. She is not overly concerned about the weakness in her legs, and states that they frequently can be a little bit wobbly for her. The patient had otherwise been feeling well prior to the falls. She currently denies any chest pain, shortness of breath, hip pain, significant leg pain. She states that her pelvis feels a little bit sore from crawling on the ground. She is not concerned that she injured herself with any of the falls. Patient History Medical History Diabetes mellitus (Chronic 08/2000) Glaucoma (Chronic 09/2004) Hyperlipidemia (Chronic) Hypertension (Chronic) Lumbar spinal stenosis (Chronic) Osteoarthritis (Chronic) Urinary incontinence (Chronic 08/2009) Cataract (Resolved 2012) Gout (Resolved ~10/1995) Surgical History Anesthesia (Resolved) History of cataract removal with insertion of prosthetic lens (Resolved) History of hip replacement (Resolved) History of knee replacement (Resolved 04/2009) History of knee replacement (Resolved 07/2010) History of open reduction and internal fixation (ORIF) procedure (Resolved) Status post cholecystectomy (Resolved 08/1998) Status post discectomy (Resolved 06/2014) Family History (Updated 05/21/18 @ 12:14 by Lucrecia Steen) Brother No problems noted. Father CAD (coronary artery disease) Arteriosclerosis Mother No problems noted. Sister No problems noted. Family/Other Arteriosclerosis Family/Other No problems noted. Family/Other No problems noted. Social History marital status: Smoking Status: Never smoker alcohol intake: current (ON OCCASION ) substance use type: does not use Family & Social History Family History Brother No problems noted. Father CAD (coronary artery disease) Arteriosclerosis Mother No problems noted. Sister No problems noted. Family/Other Arteriosclerosis Family/Other No problems noted. Family/Other No problems noted. Social History: household members none Prior Living Arrangements House Safety & Behavioral: Feels Safe in Current Yes Environment Been Physically Hurt or No Threatened By a Person Suicidal Ideation Description None Suicide Plan Description No Plan Tobacco & Substance use: Smoking Status Never smoker alcohol intake current alcohol intake frequency holiday/special occasion Substance Use Type does not use Meds Home Medications Medication Instructions Recorded Confirmed Type CA PANTOTHENATE/FOLIC ACID/VIT 1 tab PO Q DAY #0 08/25/11 12/01/18 History (MULTIVITAMIN) Calcium Carbonate/Vitamin D 1 cap PO Q DAY #0 08/25/11 12/01/18 History (#CALCIUM) Fish Oil (#FISH OIL) 1 iu PO Q DAY #0 08/25/11 12/01/18 History latanoprost [Xalatan] 1 drp OPHTH QDAY #0 08/25/11 12/01/18 History indomethacin 50 mg PO PRN PRN #0 03/26/16 12/01/18 History aspirin 81 mg PO QDAY #30 tab 04/02/16 12/01/18 History atorvastatin 10 mg tablet 10 mg PO EVERY OTHER DAY #45 tab 12/01/18 12/01/18 Rx hydrocodone 5 mg-acetaminophen 325 1 tab PO BID PRN #40 tab 12/01/18 Rx mg tablet lisinopril 40 mg tablet 40 mg PO QDAY #90 tab 12/01/18 12/01/18 Rx metformin ER 500 mg 500 mg PO BID #180 tab 12/01/18 12/01/18 Rx tablet,extended release 24 hr Allergies Allergy/AdvReac Type Severity Reaction Status Date / Time oxycodone Allergy Severe PSYCHOTIC Verified 12/01/18 11:04 EPISODES diphenhydramine Allergy Mild FLU LIKE Verified 12/01/18 11:04 SYMPTOMS hydrochlorothiazide Allergy Mild UNKNOWN Verified 12/01/18 11:04 Review of Systems Constitutional Constitutional: Denies chills, Denies fever(s), Denies headache(s) and Reports weakness Eyes Eyes: Denies blurry vision and Denies double vision ENT Ears, Nose, Mouth, and Throat: No headache(s), No nasal congestion, No neck pain and No sinus pressure Cardiovascular Cardiovascular: Denies chest pain, Denies fainting, Denies irregular heart rhythm, Denies leg swelling, Denies lightheadedness, Denies rapid, pounding, or irregular heartbeat and Denies shortness of breath Respiratory Respiratory: Denies cough, Denies dyspnea and Denies wheezing Gastrointestinal Gastrointestinal: Denies abdominal pain, Denies change in bowel habits and Denies constipation Genitourinary Genitourinary: Denies hematuria, Denies urinary incontinence, Denies urinary hesitancy and Denies urinary urgency Musculoskeletal Musculoskeletal: Denies back pain, Denies joint swelling, Reports muscle weakness, Denies neck pain, Denies stiffness and Denies tingling Neurologic Neurologic: Denies abnormal speech, Denies behavioral changes, Denies syncope, Denies headache(s), Denies memory loss, Denies tingling and Reports weakness Psychiatric Psychiatric: Denies behavioral changes and Denies memory loss Endocrine Endocrine: Denies palpitations Allergic/Immunologic Allergic/Immunologic: Denies wheezing Exam Vital Signs (past 8 hours): - 12/18/18 13:08 12/18/18 14:02 12/18/18 15:00 Temperature 97.8 F Pulse Rate 90 82 75 Respiratory Rate 18 18 16 Blood Pressure 147/111 H Blood Pressure [Right Arm] 146/65 H 121/58 L Pulse Oximetry 100 96 95 12/18/18 15:30 12/18/18 16:30 12/18/18 16:45 Temperature 98.4 F Pulse Rate 83 83 81 Respiratory Rate 12 17 20 Blood Pressure 148/63 H Blood Pressure [Right Arm] 140/68 139/63 Pulse Oximetry 98 98 95 Oxygen Delivery Method Room Air Oxygen Flow Rate 0 Narrative Exam Narrative: GEN - alert, cooperative and no distress HEENT - normocephalic and atraumatic, sclera white, moist mucus membranes, throat non-erythematous NECK - FROM, no adenopathy, no JVD HEART - RRR, S1, S2 normal, no S3 or S4, no murmurs LUNGS - symmetric chest rise, no accessory muscles, clear to auscultation bilaterally ABD - flat, nondistended, normal bowel sounds, soft, nontender and no hepatomegaly, splenomegaly or masses EXT - no cyanosis, clubbing or edema SKIN - no rashes or suspicious lesions NEURO - alert and and oriented to person, place and situation, Muscle strength is 5/5 UE and LE, sensation intact UE and LE, CN II-XII intact Objective Imaging CT scan - head: Radiologist's impression: PROCEDURE: CT HEAD/BRAIN WO CON INDICATIONS: left leg weakness TECHNIQUE: Noncontrast 4.5 mm thick angled axial sections acquired from the foramen magnum to the vertex, with coronal and sagittal reformats. For radiation dose reduction, the following was used: automated exposure control, adjustment of mA and/or kV according to patient size. COMPARISON: None. FINDINGS: Image quality: Excellent. CSF spaces: Basal cisterns are patent. No extra-axial fluid collections. There is moderate diffuse cerebral volume loss. There is increased prominence of the bilateral lateral ventricles and third ventricle. Brain: No midline shift. No intracranial masses or hemorrhage. Zelaya-white matter interface is normal. Skull and face: Calvarium and visualized facial bones are intact, without suspicious lesions. Sinuses: Visualized sinuses and mastoids are clear. IMPRESSION: Increased prominence of the bilateral lateral ventricles and third ventricle, which may be benign secondary to moderate diffuse cerebral volume loss versus developing hydrocephalus. Clinical correlation recommended. Labs Result Diagrams: 12/18/18 14:00 12/18/18 14:00 Labs: Laboratory Results - last 24 hr 12/18/18 12/18/18 12/18/18 14:00 14:00 14:00 WBC 8.5 RBC 4.43 Hgb 13.6 Hct 41.5 MCV 93.6 MCH 30.8 MCHC 32.9 RDW 13.6 Plt Count 229 Neut % (Auto) 79.0 H Lymph % (Auto) 14.5 L [place] % (Auto) 5.0 Eos % (Auto) 1.0 L Baso % (Auto) 0.5 Neut # (Auto) 6700 Lymph # (Auto) 1200 [place] # (Auto) 400 Eos # (Auto) 100 Baso # (Auto) 0 Sodium 140 Potassium 4.8 Chloride 101 Carbon Dioxide 26 BUN 21 H Creatinine 0.80 Estimated GFR > 60.0 BUN/Creatinine Ratio 26.3 H Glucose 154 H Calcium 10.5 H Total Bilirubin 1.3 AST 66 H ALT 37 Alkaline Phosphatase 93 Total Creatine Kinase 1238 H CK-MB (CK-2) 5.79 H CK-MB (CK-2) Rel Index 0.5 L Troponin I < 0.012 Total Protein 8.5 H Albumin 4.9 Globulin 3.6 Albumin/Globulin Ratio 1.4 Procalcitonin 0.12 Assessment & Plan Assessment & Plan narrative: Patient is an 78-year-old woman with type 2 diabetes, hypertension, and hyperlipidemia who presented with multiple ground level falls. Pt endorses weakness in her legs, no other associated symptoms. On discussion, the weakness sounds like a gradual progression and not rapid onset. Most likely due to chronic deconditioning. CK was found to be significantly elevated in the ER. No evidence of any other serious injury at this time. 1) Rhabdomyolysis: - Continue mIVF at 150cc/hr - Repeat CK in the morning to trend 2) Weakness: - PT/OT consulted - Discussed with pt that she may need brief stay in rehab center. She is not very interested in this and greatly prefers returning home. Will continue to address d/c planning after continued assessments 3) DM type 2: - ACHS blood sugar checks - Sliding scale for coverage - Hold home Metformin for now 4) Hypertension: - Continue home Lisinopril 5) Hyperlipidemia: - Continue home Atorvastatin Diet: Carb control DVT prophylaxis: Lovenox Code: Full Dispo: Pending PT/OT evaluation and improvement in CK. Anticipate at least one midnight. Admitted under observation status.
[2018-12-19 03:44] LABS: Appearance Urine UA CLEAR; Bilirubin Urine UA NEGATIVE (NEGATIVE); Color Urine UA YELLOW; Glucose Urine UA NEGATIVE (Negative); Ketones Urine UA TRACE (NEGATIVE); Leukocyte Esterase Urine UA 2+ (NEGATIVE); Nitrite Urine UA POSITIVE (Negative); Occult Blood Urine UA TRACE-LYSED (Negative); Protein Urine UA NEGATIVE (Negative); RBC Urine None Seen (0-5/HPF); Specific Gravity Urine UA 1.025 (1.000-1.035); Urobilinogen Urine UA 0.2 E.U./dL (0.2)
[2018-12-19 03:48] LABS: Bacteria Urine Many (>30); Hyaline Casts Urine 0-1/LPF; Squamous Epithelial Cell Urine 0-1 /HPF (0-5/HPF); WBC Urine 30-100/HPF (0-5/HPF)
[2018-12-19 03:50] LABS: Culture Indicated Urine Specimen Cultured
[2018-12-19] MEDS: SODIUM CHLORIDE 0.9% 1,000 ML 150 ML IV ×2 (05:08→12:07)
[2018-12-19 05:54] VITALS: BP 130/71; PULSE 65; RESP 16; TEMP 36.3; O2SAT 100
[2018-12-19 06:28] LABS: Creatine Kinase 651 U/L (30-135)
[2018-12-19 06:46] LABS: Alanine Aminotransferase 36 IU/L (9-52); Albumin Globulin Ratio 1.4 (1.0-2.8); Alkaline Phosphatase 86 U/L (38-126); Aspartate Aminotransferase 42 IU/L (14-36); BUN Creatinine Ratio 18.8 (6-22); Bilirubin Total 0.7 mg/dL (0.2-1.3); Blood Urea Nitrogen 15 mg/dL (7-17); Calcium 9.6 mg/dL (8.4-10.2); Carbon Dioxide 27 mmol/L (22-32); Chloride 104 mmol/L (98-107); Estimated Glomerular Filt Rate > 60.0 mL/min (>60); Globulin 2.9 g/dL (1.7-4.1); Glucose 153 mg/dL (80-110); HEMOLYSIS < 15 (0-50); Potassium 4.1 mmol/L (3.4-5.1); Sodium 142 mmol/L (137-145); Total Protein 6.9 g/dL (6.3-8.2)
[2018-12-19 08:00] VITALS: BP 148/72; PULSE 64; RESP 16; TEMP 36.3; O2SAT 97
[2018-12-19 08:15] VITALS: O2SAT 97
[2018-12-19] MEDS: ACETAMINOPHEN 325 MG TABLET 650 MG PO (08:57)
[2018-12-19] MEDS: ASPIRIN EC 81 MG TABLET PO (08:57)
[2018-12-19] MEDS: LISINOPRIL 20 MG TABLET 40 MG PO (08:57)
[2018-12-19] MEDS: ENOXAPARIN 40 MG/0.4 ML SYRINGE SUBCUT (08:57)
[2018-12-19 11:35] VITALS: BP 128/91; PULSE 64; RESP 16; TEMP 36.2; O2SAT 97
--- NOTE | 2018-12-19 11:35 | PT.IIE ---
Surgical History (Last Reviewed 12/18/18 @ 13:39 by Saima Parra DO) Anesthesia (Resolved) History of cataract removal with insertion of prosthetic lens (Resolved) History of hip replacement (Resolved) History of knee replacement (Resolved 04/2009) History of knee replacement (Resolved 07/2010) History of open reduction and internal fixation (ORIF) procedure (Resolved) Status post cholecystectomy (Resolved 08/1998) Status post discectomy (Resolved 06/2014) Medical History (Last Reviewed 12/18/18 @ 13:39 by Saima Parra DO) Diabetes mellitus (Chronic 08/2000) Glaucoma (Chronic 09/2004) Hyperlipidemia (Chronic) Hypertension (Chronic) Lumbar spinal stenosis (Chronic) Osteoarthritis (Chronic) Urinary incontinence (Chronic 08/2009) Cataract (Resolved 2012) Gout (Resolved ~10/1995) Physical Therapy Inpatient Evaluation/Re-Eval M1 PT/OT-IP Prior Functional Status Start: 12/19/18 12:55 Freq: NEEDED Status: Active Protocol: Document 12/19/18 11:35 [facility] (Rec: 12/19/18 13:04 [facility] [email or web address]) Medical Review Prior Functional Status Medical History Reviewed Yes Mobility and Gait mod indep. with SPC in L hand for community gait Activities of Daily Living and IADL's indep I/ADLs Social History Household Members none Living Arrangements House Number of Floors (Floors) One Floor Number of Stairs To Enter/Railing? 2 SE with R rail in front, small threshold in through the garage which is her normal entry/exit point Home Environment High Toilet Walk in Shower Home Equipment Front Wheel Walker Straight Cane Raised Toilet Seat Without Armrests Shower Seat with Backrest Additional Social History Comment Pt with 3 falls prior to presenting to the ER, each with extended time on the ground (1st fall was on ground for 7 hrs, 2nd fall on ground for 4 hrs, and 3rd fall on the ground for 6 hrs). EMS responded each time to her home, assisted her up, but after the 3rd fall within 24 hrs, pt was brought to the ER. CK found to be elevated. Head CT showed Increased prominence of the bilateral lateral ventricles and third ventricle, which may be benign secondary to moderate diffuse cerebral volume loss versus developing hydrocephalus. Clinical correlation recommended. Pt notes that she is starting OP PT next week for B shoulder OA M2 PT-IP Current Condition Start: 12/19/18 12:55 Freq: NEEDED Status: Active Protocol: Document 12/19/18 11:35 [facility] (Rec: 12/19/18 13:04 [facility] [email or web address]) Physical Therapy Current Condition Current Condition Evaluation Date 12/19/18 Treatment Diagnosis leg weakness, multiple falls, impaired activity tolerance M3 PT-IP Subjective Start: 12/19/18 12:55 Freq: NEEDED Status: Active Protocol: Document 12/19/18 11:35 [facility] (Rec: 12/19/18 13:04 [facility] [email or web address]) Subjective Physical Therapy Visit Type Type Initial Evaluation Visit Start Time 11:35 Visit Stop Time 12:00 Total Visit Minutes 25 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 Physical Therapy Visit Comments Patient Comments pt states she feels about 90% of her normal Patient Goals she wants to go home today Therapy Pain Assessment Pain Present Pain Present Denied Pain M4 PT-IP Mobility and Gait Start: 12/19/18 12:55 Freq: NEEDED Status: Active Protocol: Document 12/19/18 11:35 [facility] (Rec: 12/19/18 13:04 [facility] [email or web address]) PT-Bed Mobility Assessment Supine to Sit Supine to Sit Standby Assistance Scooting Scooting to Edge of Bed Independent Scooting Up and Down in Bed Independent PT-Transfer Assessment Sit to and From Stand Sit to and from Stand Standby Assistance Equipment Transfer Assistive Device Gait Belt Front Wheeled Walker Transfers Transfer Destination Chair Transfer Technique Stand Step Pivot Transfer Ability Level of Assist Standby Assistance Gait Assessment Gait Gait Assistance Required: Standby Assistance Distance (Feet) 175 Assistive Devices Assistive Device Gait Belt Front Wheeled Walker Gait Deviations General Gait Pattern Decreased Feet Clearance Factors Limiting Gait Function Factors Limiting Gait Function Decreased Activity Tolerance Decreased Strength Comments Gait Comments step through gait pattern; O2 98% and [place] WNL after gait PT-Balance Assessment Sitting Balance and Reactions Static Sitting Balance Ability Good Dynamic Sitting Balance Ability Good Standing Balance and Reactions Static Standing Balance Ability Good Dynamic Standing Balance Ability Fair Device Used FWW M5 PT-IP Objective Assessments Start: 12/19/18 12:55 Freq: NEEDED Status: Active Protocol: Document 12/19/18 11:35 [facility] (Rec: 12/19/18 13:04 [facility] [email or web address]) Orientation Orientation/Cognition Level of Alertness Alert Orientation Name Age Birthday Month Date Year Day of Week Place Situation Gross Range of Motion Upper Extremity ROM Assessment Bilaterally Impaired Lower Extremity ROM Assessment Within Functional Limits Strength Lower Extremity Strength Assessment Left Impaired Hip flexion 3+/5 L and 4/5 R Knee flexion 4/5 L and 5/5 R, extension 4/5 L and 4+/5 R Ankle DF 5/5 B Coordination Assessment Gross Coordination Gross Coordination WNL Sensation Assessment Sensation Gross Sensation WNL Muscle Tone Muscle Tone WNL Yes M6 PT-IP Treatment Start: 12/19/18 12:55 Freq: NEEDED Status: Active Protocol: Document 12/19/18 11:35 [facility] (Rec: 12/19/18 13:04 [facility] [email or web address]) Physical Therapy Treatment Education Education Provided Safety M7 PT-IP Assessment and Plan Start: 12/19/18 12:55 Freq: NEEDED Status: Active Protocol: Document 12/19/18 11:35 [facility] (Rec: 12/19/18 13:04 [facility] [email or web address]) PT Summary Assessment and Plan Potential Rehabilitation Potential Good Status of Condition at Evaluation Stable Summary Impairments Strength Transfers Gait Activity Tolerance Assessment Summary Pt without loss of balance during gait trial, using a FWW . Recommend she use her FWW upon d/c home. Expect pt to be able to return home when medically stable. It is concerning that pt is unable to get off of ground indep., and would greatly benefit from outpatient physical therapy to assess and progress her ability for floor transfers, as well as address L>R LE weakness. Pt with no c/o dizziness or lightheadedness during session. BP 128/91 prior to mobility. Goals Bed Mobility Goal Independent Transfer Goal Independent Gait Goal Independent Front Wheel Walker Gait Distance 300 Days to Meet Goals 3 Frequency of Treatment Frequency Of Treatment Once a Day Treatment Plan Physical Therapy Treatment Plan Bed Mobility Training Transfer Training Gait Training Therapeutic Exercise Discharge Planning Neuromuscular Re-ed Other Recommendations and Next Treatment progress gait, standing Focus balance, LE strengthening Recommendations To Nursing Amount of Assist Needed 1 Person Assist Discharge Recommendations PT Discharge Recommendations Home Outpatient PT Other Discharge Recommendations use her own FWW upon d/c.
--- NOTE | 2018-12-19 12:41 | PC.NURSE ---
Addendum entered by Mariia Motta R.N. 12/19/18 15:25: Rec'd discharge order. Margy-pt's neighbor and ride called and will come pick and shovel man pt. Reviewed discharge summary packet with pt, no voiced concerns, pt aware to call Thursday morning for follow up appointment in [address] Armas. Pt states she may already have an appointment with Dr. Armas in or around 2 weeks for now. 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 Margy present to pick and shovel man pt at ED entrance to drive pt home. Clarified with Dr. Chris regarding new prescription meds on discharge list. These are not new medications. Pt is to continue her home med regime. No new prescriptions. Original Note: DAy Shift- Pt A&OX4, able to make her needs known. Pt wanting to discharge home from early this Morning. Pt assisted to BSC at 0815, states left leg slightly weaker compared to right leg. Overall better than yesterday, steady gait. Pt denied any light-headedness or dizziness. IVF infusing well ti left hand PIV which had to be re-dressed as the PIV connection was loose and leaking under the tegaderm dressing. Pt OOB with PT for assessment. Update rec'd from SARA Carpio around 1230. Pt okay for discharge. Called and spoke with Dr. Chris around 1235 and update given regarding PT session. Dr. Chris will be in to see pt in a couple hours. Pt update at 1240. Pt's ride home and neighbor Margy called and is on standby for discharge today.
--- NOTE | 2018-12-19 14:04 | CM.DANOTE ---
Discharge Planning/Care Management DCP: assessment: case received and met this morning with pt after EMR review. Introduced self and role. Pt is an 78 year old female who admitted yesterday late afternoon to care of [facility] physicians. PCP: Dr. Armas. Dr. Chris is seeing pt today. Payer: Medicare and [employer]ARP Pt confirms that she does live alone, her Hugo has medical needs that have led him to reside at [facility]. She says he does worry about her, calls her 2x a day routinely and when he could not get her he did call EMS, thus she was found and transported to . Pt says she used her [employer] but it did not work. I am going to follow up immediately on this. Pt says she has no plans to join her at [facility]..it's $6000 a month just for him! and pt says she enjoys her life at home with her dog. She and the dog go every day to [facility] to see her . Pt drives. She has a FWW that has been in the family and stays in the closet. She uses a shower chair and a cane. 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 PT was ordered and has cleared pt for d/c to home. ALESSANDRA Chiang reports Dr. Chris came back at noon and did ok pt for d/c home. Pt says her neighbor Margy Miller/a regional hr manager with [employer] will pick her up. Another neighbor is watching her dog. Pt says she is eager to get back home. CM Discharge Assessment Start: 12/19/18 14:02 Freq: Status: Active Protocol: Document 12/19/18 14:02 ITV (Rec: 12/19/18 14:04 ITV [email or web address]) Discharge Planning Assessment Advance Directives? No History Provided By Patient Medical Record Prior Living Arrangements House Household Members none Comment spouse lives at [facility] Type of transporation used prior to Drives own vehicle admit Independent with ADL's Yes Is patient alert and oriented? Yes Whiteboard Updated in Patient Room with Yes name and ext. # of Transfer Table Operator Review Status In Process Next Review Type Continued Stay Review Discharge Planning/Care Management CM Discharge Assessment Start: 12/19/18 14:02 Freq: Status: Active Protocol: Document 12/19/18 14:02 ITV (Rec: 12/19/18 14:04 ITV [email or web address]) Discharge Planning Assessment Advance Directives? No History Provided By Patient Medical Record Prior Living Arrangements House Household Members none Comment spouse lives at [facility] Type of transporation used prior to Drives own vehicle admit Independent with ADL's Yes Is patient alert and oriented? Yes Whiteboard Updated in Patient Room with Yes name and ext. # of Transfer Table Operator Review Status In Process Next Review Type Continued Stay Review
--- NOTE | 2018-12-19 14:55 | P.DS_ITS ---
History of Present Illness Chief complaint: Leg weakness Narrative: Patient is an 78-year-old woman with type 2 diabetes, hypertension, and hyperlipidemia who presented with multiple ground level falls. The patient reports that yesterday morning at approximately 8:30 a.m. she fell at home when turning around quickly. She states that her ?legs just gave out on her. She denies any associated loss of consciousness, chest pain, shortness of breath, urinary incontinence. She did not hit her head. The patient was on the ground for approximately 7 hours prior to the paramedics arriving. The paramedics have been contacted by her who lives at [facility]. Patient states that she was unable to arise prior to that time due to her legs feeling too weak. The paramedics got the patient up to the couch and felt that she was safe to stay at home. A few hours later, she had another ground level fall. Again with no associated symptoms or loss of consciousness. She was on the ground for 4 hours prior to the paramedics being contacted, after she was able to crawl to the phone. She was then able to dress herself for bed, brush her teeth, and perform all normal bedtime activities. The patient was able to sleep overnight, rising to use the restroom at least once in the night. In the morning, the patient's legs gave out from under her 1 more time. This time, the patient was on the ground for approximately 6 hours prior to the paramedics arriving. They then took her to the ER for further evaluation. The patient states that prior to yesterday she had not had any falls at home since July. She does report that she is frequently ?clumsy. She is not overly concerned about the weakness in her legs, and states that they frequently can be a little bit wobbly for her. The patient had otherwise been feeling well prior to the falls. She currently denies any chest pain, shortness of breath, hip pain, significant leg pain. She states that her pelvis feels a little bit sore from crawling on the ground. She is not concerned that she injured herself with any of the falls. Discharge Providers Date of admission: 12/18/18 16:22 Discharge Date: 12/19/18 Primary care physician: Clyde Armas MD Consults: 12/18/18 17:15 Consult to Occupational Therapy Evaluate & Treat Comment: Physician Instructions: Evaluate and treat Consult to Physical Therapy Evaluate & Treat Comment: Physician Instructions: Evaluate and Treat Discharge provider: Liana Chris MD Summary Discharge Diagnosis: Rhabdomyolysis Weakness Type 2 DM Hypertension Hyperlipidemia Hospital Course: The pt was admitted with rhabdomyolysis due to multiple recent falls at home from weakness. She received IVF, and her CK improved dramatically. IVF were continued for another 10 hours after last CK check. The pt reported that her weakness improved as well. She was evaluated by physical therapy, and was found safe to ambulate independently with the use of her 4- wheeled walker at home. Nursing staff also walked with her, and she remained stable on her feet. She plans to contact the [employer] tomorrow to determine why her button was not functioning properly. She will continue to work on adequate hydration at home. She will f/u with Dr Armas within 2 weeks. Status at Discharge Cognitive/behavioral status at discharge: oriented Functional status at discharge: uses cane/walker Overall status at discharge: patient is back to baseline Time Spent with Patient Greater than 30 minutes Exam Vital Signs (past 8 hours): - 12/19/18 08:00 12/19/18 08:15 12/19/18 11:35 Temperature 97.3 F L 97.2 F L Pulse Rate 64 64 Respiratory Rate 16 16 Blood Pressure 148/72 H 128/91 H Pulse Oximetry 97 97 97 Oxygen Delivery Method Room Air Oxygen Flow Rate 0 Narrative Exam Narrative: Gen: No acute distress, sitting comfortably in bed, appears well, speaking easily CV: Regular rate and rhythm, no murmurs Respiratory: Clear to auscultation bilaterally, no wheezes or crackles Abdomen: Soft, nontender, nondistended Extremities: No edema Objective Labs Result Diagrams: 12/18/18 14:00 12/19/18 05:34 Labs: Laboratory Results - last 24 hr 12/18/18 12/19/18 12/19/18 14:00 03:40 05:34 Sodium 142 Potassium 4.1 Chloride 104 Carbon Dioxide 27 BUN 15 Creatinine 0.80 Estimated GFR > 60.0 BUN/Creatinine Ratio 18.8 Glucose 153 H Calcium 9.6 Total Bilirubin 0.7 AST 42 H ALT 36 Alkaline Phosphatase 86 Total Creatine Kinase Total Protein 6.9 Albumin 4.0 Globulin 2.9 Albumin/Globulin Ratio 1.4 Procalcitonin 0.12 Urine Color Yellow Urine Appearance Clear Urine pH 5.0 Ur Specific [place] 1.025 Urine Protein Negative Urine Glucose (UA) Negative Urine Ketones Trace H Urine Occult Blood Trace-lysed Urine Nitrate Positive H Urine Bilirubin Negative Urine Urobilinogen 0.2 Ur Leukocyte Esterase 2+ H Urine RBC None seen Urine WBC 30-100/hpf H Ur Squamous Epith Cells 0-1 /hpf Urine Bacteria Many (>30) H Hyaline Casts 0-1/lpf Ur Culture Indicated? Specimen cultured 12/19/18 05:34 Sodium Potassium Chloride Carbon Dioxide BUN Creatinine Estimated GFR BUN/Creatinine Ratio Glucose Calcium Total Bilirubin AST ALT Alkaline Phosphatase Total Creatine Kinase 651 H D Total Protein Albumin Globulin Albumin/Globulin Ratio Procalcitonin Urine Color Urine Appearance Urine pH Ur Specific [place] Urine Protein Urine Glucose (UA) Urine Ketones Urine Occult Blood Urine Nitrate Urine Bilirubin Urine Urobilinogen Ur Leukocyte Esterase Urine RBC Urine WBC Ur Squamous Epith Cells Urine Bacteria Hyaline Casts Ur Culture Indicated? Discharge Plan Discharge Plan Patient Disposition: Home Discharge Med Rec/Prescriptions Prescriptions: New atorvastatin [Lipitor] 10 mg Tablet 10 mg PO EVERY OTHER DAY Qty: 30 RF: 0 hydrocodone-acetaminophen 5-325 mg Tablet 1 tab PO BID PRN (Reason: Pain, Moderate (4-6)) Qty: 30 RF: 0 Continued latanoprost [Xalatan] 0.005 % drops 1 drp OPHTH BEDTIME Qty: 0 RF: 0 CA PANTOTHENATE/FOLIC ACID/VIT (MULTIVITAMIN) 1 tab PO Q DAY Qty: 0 RF: 0 Calcium Carbonate/Vitamin D (#CALCIUM) 1 cap PO Q DAY Qty: 0 RF: 0 Fish Oil (#FISH OIL) 1 iu PO BID Qty: 0 RF: 0 indomethacin 50 MG capsule 50 mg PO PRN PRN (Reason: gout pain) Qty: 0 RF: 0 aspirin 81 MG tablet,delayed release (DR/EC) 81 mg PO QDAY Qty: 30 RF: 0 lisinopril 40 mg tablet 40 mg PO QDAY Qty: 90 RF: 3 metformin [Glucophage XR] 500 mg tablet extended release 24 hr 500 mg PO BID Qty: 180 RF: 3 atorvastatin 10 mg Tablet 5 mg PO Q OTHER DAY RF: 0 multivitamin Tablet 1 tab PO DAILY RF: 0 Follow up/Referrals: Clyde Armas MD [Primary Care Provider] - 2 Weeks (Please call office Thursday morning to make a follow up appointment for 2 weeks from now.) Provider Discharge Instructions Diet: Carb-consistent/Diabetic Visit Report/Discharge Packet Instructions: How to Choose and Use a Walker, How to Prevent Falls, DI for Rhabdomyolysis Visit Report Forms: Stroke Signs & Symptoms Discharge Data Primary Care Provider: Clyde Armas Attending Provider: Liana Chris Admit Date/Time: 12/18/18 16:22
== END 2018-12-19 15:05 | disposition home or self-care (01) ==
LOC: ED 15:36 → AC 16:23
PROVIDERS: Admitting Provider Family Medicine; Emergency Provider Emergency Medicine; PCP Family Medicine; Visit Provider Family Medicine
DX: M62.82 Rhabdomyolysis (principal); R53.1 Weakness; W18.30XA Fall on same level, unspecified, initial encounter; Z91.81 History of falling; E11.9 Type 2 diabetes mellitus without complications; E78.5 Hyperlipidemia, unspecified; I10 Essential (primary) hypertension; M19.91 Primary osteoarthritis, unspecified site; Z79.84 Long term (current) use of oral hypoglycemic drugs
CPT/HCPCS: 36415; 36591; 70450; 80053; 81001; 81003; 82550; 82553; 82962; 84145; 84484; 85025; 87077; 87086; 87186; 93005; 96360; 96361; 96372; 97161; 99217; 99219; 99284; 99285; G0378; J1650

== ENCOUNTER 2019-01-25 12:45 | Outpatient (RCR) | payer MEDICARE, SELFPAY ==
[2018-12-18 16:36] VITALS: BMI 31.5
--- NOTE | 2018-12-21 17:03 | PT.OIE ---
Current Diagnoses Pain in right shoulder (12/21/18) Muscle weakness (generalized) (12/21/18) Other symptoms and signs involving the musculoskeletal system (12/21/18) Other reduced mobility (12/21/18) Past Medical History (Last Reviewed 12/18/18 @ 13:39 by Saima Parra DO) Diabetes mellitus (Chronic 08/2000) Glaucoma (Chronic 09/2004) Hyperlipidemia (Chronic) Hypertension (Chronic) Lumbar spinal stenosis (Chronic) Osteoarthritis (Chronic) Urinary incontinence (Chronic 08/2009) Cataract (Resolved 2012) Gout (Resolved ~10/1995) Past Surgical History (Last Reviewed 12/18/18 @ 13:39 by Saima Parra DO) Anesthesia (Resolved) History of cataract removal with insertion of prosthetic lens (Resolved) History of hip replacement (Resolved) History of knee replacement (Resolved 04/2009) History of knee replacement (Resolved 07/2010) History of open reduction and internal fixation (ORIF) procedure (Resolved) Status post cholecystectomy (Resolved 08/1998) Status post discectomy (Resolved 06/2014) Provider Visit Care Team Role Provider Type Clyde Armas MD Attending Provider Physician Primary Care Provider Specialty: Family Practice Address: [address] [place] [address] Email: [email or web address] Physical Therapy Initial Evaluation PT-OP-A Visit Information Start: 12/20/18 17:24 Freq: Status: Active Protocol: Document 12/21/18 08:25 LRN (Rec: 12/21/18 09:48 LRN [id number]) Out-Patient Physical Therapy Visit Information Visit Information Visit Type Initial Evaluation Visit Start Time 08:25 Visit Stop Time 09:15 Total Visit Minutes 50 Visit Number 1 Number of RIDDLER OPERATOR Visits 0 Evaluation Information Evaluation Date 12/21/18 Precautions Precautions Recent dx: Rhabdomyolysis L [place], Glo TKA, Diabetes II, Fall history PT-OP-B Current Condition Start: 12/20/18 17:24 Freq: Status: Active Protocol: Document 12/21/18 08:25 LRN (Rec: 12/21/18 09:48 LRN [id number]) Current Condition History of Current Condition Onset Date 10 yrs ago, but at annual physical in November 2018, R shoulder dysfunction Current Complaints R shoulder pain inside joint History of Current Condition Insidious onset of R shoulder pain 10 yrs ago that has progressively worsened. Pt is R hand dominant. Walking with walker the past 2 days due to recent hospital admission for Rhabdomyolysis after falling onto buttocks. No falls since using a walker. Prior Treatments and Tests X-ray in November 2018: Arthritis Future Testing and Treatments Planned Cortisone injection 12/27/18. Treatment Goals Patient/Caregiver Goals Decrease R shoulder pain down so she can get a cortisone shot and regain function of the the R arm. Another goal is to be able to walk in order to strengthen the legs, but pt understands that will be addressed at a different time. Prior Functional Status Baseline Function- ADL's Independent Baseline Function- Mobility Independent Baseline Function- Other Reaching need assist with other hand and has pain with movement. Cant lift arm without pain and is weak. Current Functional Impairments (Reported) Functional Limitations- ADL's Can't reach forward without pain Can't reach upward due to pain Can't get off floor Can't walk without the use of a walker Functional Limitations- Mobility/Gait Limited walking due to back pain. Functional Limitations- Other Reaching requires use of other hand to assist and has R shoulder pain with movement. Personal Factors Other Personal Factors That May Effect Recent diagnosis of Therapy/Recovery Rhabdomyolysis Diabetes type II Controlled HBP Lives alone. Chronicity of condition History of L [place] and glo TKA. PT-OP-C Subjective Start: 12/20/18 17:24 Freq: Status: Active Protocol: Document 12/21/18 08:25 LRN (Rec: 12/21/18 09:48 LRN [id number]) Patient Questionnaires Quick Dash- Upper Extremity Quick Dash UE Score 54 Quick Dash UE Impairment 40 to 59% Impaired (Score 40- 59) OP-PT Pain Assessment Location R shoulder Pain Location Details Pain is inside the R shoulder joint. Scale Used Numeric (1 - 10) Description Aching Sharp Shooting With Movement Frequency Sharp with movement, aching at rest Variations/Patterns 1-2/10 at rest, 6/10 when moving. No pain lying in bed PT-OP-E Functional Tests Start: 12/20/18 17:24 Freq: Status: Active Protocol: Document 12/21/18 08:25 LRN (Rec: 12/21/18 09:48 LRN [id number]) Functional Tests Apley's Scratch Test Action 1: The subject is instructed to touch the opposite shoulder with his/her hand. This motion checks Glenohumeral adduction, internal rotation , horizontal adduction and scapular protraction Action 2: The subject is instructed to place his/her arm overhead and reach behind the neck to touch his/her upper back. This motion checks Glenohumeral abduction, external rotation and scapular upward rotation and elevation. Action 3: The subject puts his/her hand on the lower back and reaches upward as far as possible. This motion checks glenohumeral adduction, internal rotation and scapular retraction with downward rotation Action 1- Left Top and posterior R shoulder Action 1- Right Anterior L shoulder Action 2- Left C5 Action 2- Right R side of head Action 3- Left L 5 Action 3- Right R buttock PT-OP-H Neuro Start: 12/20/18 17:24 Freq: Status: Active Protocol: Document 12/21/18 08:25 LRN (Rec: 12/21/18 09:48 LRN [id number]) Sensation Evaluation Gross Sensation Gross Sensation WNL Deep Tendon Reflex & Clonus Assessment Deep Tendon Reflex Right Bicep Deep Tendon Reflex 1+ Diminished Left Bicep Deep Tendon Reflex 2+ Normal Bilateral Tricep Deep Tendon Reflex 2+ Normal PT-OP-J Posture/Palpation/Skin Start: 12/20/18 17:24 Freq: Status: Active Protocol: Document 12/21/18 08:25 LRN (Rec: 12/21/18 09:48 LRN [id number]) Posture Evaluation Position Standing Evaluation View Anterior Head/C-Spine Posture Side Bent Left C-Spine Flattened Forward Head T-Spine Posture Increased Kyphosis L-Spine Posture Decreased Lordosis Shoulder Posture (L) Rounded (R) Rounded Hip Posture (L) Flexed (R) Flexed Palpation Assessment Location R shoulder/neck Palpation Location R ACJ, Acromion process anteriorly & posteriorly Palpation Findings Edema Spasm Tenderness Palpation Details Swelling at R Pec Minor/Major & Lateral Deltoid PT-OP-K Range of Motion Start: 12/20/18 17:24 Freq: Status: Active Protocol: Document 12/21/18 08:25 LRN (Rec: 12/21/18 09:48 LRN [id number]) Cervical Spine Range of Motion Cervical Spine Active Degrees Testing Position Sitting Flexion 40 Extension 60 Rotation Left 60 Rotation Right 55 ROM Limitations Soft Tissue Tightness Shoulder Goniometric Range of Motion Shoulder Measured in Degrees Right Active Shoulder ROM WFL Yes Testing Position Sitting Flexion 67 Abduction 60 External Rotation at 0 degrees Abduction 42 Internal Rotation Behind Back (text) R lateral buttock Right Passive Shoulder ROM WFL No Testing Position Supine Flexion 90 Abduction 42 External Rotation at 45 degrees 10 Abduction Internal Rotation 25 Left Passive Shoulder ROM WFL No Testing Position Supine Flexion 125 Abduction 70 External Rotation at 45 degrees 42 Abduction Internal Rotation 50 Left Testing Position Sitting Left Active Shoulder ROM WFL No Testing Position Sitting Flexion 105 Abduction 65 External Rotation at 0 degrees Abduction 30 Internal Rotation Behind Back (text) Mid back at L5 PT-OP-M Strength Start: 12/20/18 17:24 Freq: Status: Active Protocol: Document 12/21/18 08:25 LRN (Rec: 12/21/18 09:48 LRN [id number]) Shoulder Strength Shoulder Manual Muscle Testing Right Flexion 2- Poor- Abduction (C5) 2- Poor- External Rotation 3- Fair- Internal Rotation 3- Fair- Left Flexion 2 Poor Abduction (C5) 2- Poor- External Rotation 3- Fair- Internal Rotation 5 Normal Elbow/Forearm Strength Elbow and Forearm Manual Muscle Testing Right Flexion (C6) 3 Fair Left Flexion (C6) 4+ Good+ PT-OP-Q Treatments Start: 12/20/18 17:24 Freq: Status: Active Protocol: Document 12/21/18 08:25 LRN (Rec: 12/21/18 09:48 LRN [id number]) Therapeutic Exercises Sitting Exercises Shoulder ER/IR Sitting Exercise Name Active shoulder ER/IR, elbows at sides Reps/Minutes 5x Comments See self care below Self-Care/Home Management Treatment Education Patient Education Home Exercise Program Pain Management Other Education Educated pt in proper use of Cryotherapy for pain management for R shoulder & coccyx. Activities Self-Care/Home Management Activities I/S, reviewed and pt performed in sitting active shoulder ER /IR ex for home PT-OP-T Assessment and Plan Start: 12/20/18 17:24 Freq: Status: Active Protocol: Document 12/21/18 08:25 LRN (Rec: 12/21/18 09:48 LRN [id number]) Physical Therapy Assessment Rehab Potential Rehabilitation Potential Good Evaluation Complexity Number of Personal Factors/Comorbidities 3 or More Number of Body Systems Impaired 4 or More Clinical Presentation at Evaluation Evolving Impairments Impairments Activity Tolerance Functional Mobility Gait Pain Posture ROM Soft Tissue Mobility Strength Other Concerns Fall Risk Yes without an assistive device. Age Related Concerns 65+ yrs old. Diabetes. History of falls. Barriers to Rehabilitation Lives alone. Recent diagnosis of Rhabdomyolysis. 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 L [place]. Bilateral TKA's. Goals ROM Impairment Decreased R shoulder AROM limiting mobility resulting in pain Coat Fitter Goal (LTG) Pt will be able to reach with R arm forward and overhead at same as L arm is currently. LTG Duration 02/24/19 R shoulder pain Impairment Poor posturing with R Shoulder pain Short Term Goal (STG) Pt pain will be reduced to no greater than 3/10 at its worst in order to receive a cortisone injection STG Duration 02/04/19 Penitentiary Goal (LTG) Pt will be able to recognize and self correct independently her shoulder posture to decrease or eliminate pain with reaching forward or overhead. LTG Duration 02/24/19 Five Impairment Lacks appropriate HEP Penitentiary Goal (LTG) Pt will be able to manage her R shoulder pain with her independent self care HEP. LTG Duration 02/24/19 Assessment Summary Assessment Pt presents with R shoulder achy pain that can be reproduced with palpation, but I was not able to reproduce her internal sharp stabbing pain with forced shoulder flexion; therefore her sharp pain is probably more nerve related. Her achy pain is palpable at the R ACJ and anterior/posterior to the R Acromion process; therefore is probably soft tissue related. She had mechanical dysfunction of the R and L shoulder joint and severe restriction in mobility due to pain and has ROM restrictions that are similar to a frozen shoulder. She demonstrates shoulder weakness due to pain. The pt will benefit from skilled physical therapy to improve her shoulder mobility an strength. The pt has complaints of LE weakness after her recent falls and hospitalization with a diagnosis of Rhabdomyolysis. The pt is agreeable to focusing this therapy session on her R shoulder pain and will seek a new referral for a return to therapy for her LE strength and function. Physical Therapy Plan Frequency and Duration Frequency of Treatment 2x/Week Plan of Care Start Date 12/21/18 Plan of Care End Date 02/24/19 Therapeutic Interventions Therapeutic Interventions Aquatic Therapy Home Exercise Program Joint Mobilizations Manual Therapy Neuromuscular Re-education Patient/Caregiver Education Self-Care/Home Management Soft Tissue Mobilization Taping Therapeutic Exercises Modalities Cold Pack/Ice Massage Electric Stimulation Hot Packs Iontophoresis Ultrasound Next Visit Focus/Plan Next Note Type Treatment Note Next Visit Plan Start with general ROM with UE ex if tolerated, otherwise might try US to start, followed by R shoulder ROM and strengthening ex's. Manual JMT and ROM. End with Cryotherapy. When the pt has made gains with her R shoulder , the pt will be referred back for a new referral for LE weakness and balance.
--- NOTE | 2018-12-28 15:59 | PT.OTN ---
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 Pt is R hand dominant. Walking with walker the past 2 days due to recent hospital admission for Rhabdomyolysis after falling onto buttocks. No falls since using a walker. Prior Treatments and Tests X-ray in November 2018: Arthritis Future Testing and Treatments Planned Cortisone injection 12/27/18. Treatment Goals Patient/Caregiver Goals Decrease R shoulder pain down so she can get a cortisone shot and regain function of the the R arm. Another goal is to be able to walk in order to strengthen the legs, but pt understands that will be addressed at a different time. Prior Functional Status Baseline Function- ADL's Independent Baseline Function- Mobility Independent Baseline Function- Other Reaching need assist with other hand and has pain with movement. Cant lift arm without pain and is weak. Current Functional Impairments (Reported) Functional Limitations- ADL's Can't reach forward without pain Can't reach upward due to pain Can't get off floor Can't walk without the use of a walker Functional Limitations- Mobility/Gait Limited walking due to back pain. Functional Limitations- Other Reaching requires use of other hand to assist and has R shoulder pain with movement. Personal Factors Other Personal Factors That May Effect Recent diagnosis of Therapy/Recovery Rhabdomyolysis Diabetes type II Controlled HBP Lives alone. Chronicity of condition History of L [place] and glo TKA. PT-OP-C Subjective Start: 12/20/18 17:24 Freq: Status: Active Protocol: Document 12/28/18 14:30 GGD (Rec: 12/28/18 15:57 GGD [id number]) OP-PT Subjective Patient Comments Patient Comments Pt states she sees her MD tomorrow. PT-OP-E Functional Tests Start: 12/20/18 17:24 Freq: Status: Active Protocol: Document 12/21/18 08:25 LRN (Rec: 12/21/18 09:48 LRN [id number]) Functional Tests Apley's Scratch Test Action 1: The subject is instructed to touch the opposite shoulder with his/her hand. This motion checks Glenohumeral adduction, internal rotation , horizontal adduction and scapular protraction Action 2: The subject is instructed to place his/her arm overhead and reach behind the neck to touch his/her upper back. This motion checks Glenohumeral abduction, external rotation and scapular upward rotation and elevation. Action 3: The subject puts his/her hand on the lower back and reaches upward as far as possible. This motion checks glenohumeral adduction, internal rotation and scapular retraction with downward rotation Action 1- Left Top and posterior R shoulder Action 1- Right Anterior L shoulder Action 2- Left C5 Action 2- Right R side of head Action 3- Left L 5 Action 3- Right R buttock PT-OP-H Neuro Start: 12/20/18 17:24 Freq: Status: Active Protocol: Document 12/21/18 08:25 LRN (Rec: 12/21/18 09:48 LRN [id number]) Sensation Evaluation Gross Sensation Gross Sensation WNL Deep Tendon Reflex & Clonus Assessment Deep Tendon Reflex Right Bicep Deep Tendon Reflex 1+ Diminished Left Bicep Deep Tendon Reflex 2+ Normal Bilateral Tricep Deep Tendon Reflex 2+ Normal PT-OP-J Posture/Palpation/Skin Start: 12/20/18 17:24 Freq: Status: Active Protocol: Document 12/21/18 08:25 LRN (Rec: 12/21/18 09:48 LRN [id number]) Posture Evaluation Position Standing Evaluation View Anterior Head/C-Spine Posture Side Bent Left C-Spine Flattened Forward Head T-Spine Posture Increased Kyphosis L-Spine Posture Decreased Lordosis Shoulder Posture (L) Rounded (R) Rounded Hip Posture (L) Flexed (R) Flexed Palpation Assessment Location R shoulder/neck Palpation Location R ACJ, Acromion process anteriorly & posteriorly Palpation Findings Edema Spasm Tenderness Palpation Details Swelling at R Pec Minor/Major & Lateral Deltoid PT-OP-K Range of Motion Start: 12/20/18 17:24 Freq: Status: Active Protocol: Document 12/21/18 08:25 LRN (Rec: 12/21/18 09:48 LRN [id number]) Cervical Spine Range of Motion Cervical Spine Active Degrees Testing Position Sitting Flexion 40 Extension 60 Rotation Left 60 Rotation Right 55 ROM Limitations Soft Tissue Tightness Shoulder Goniometric Range of Motion Shoulder Measured in Degrees Right Active Shoulder ROM WFL Yes Testing Position Sitting Flexion 67 Abduction 60 External Rotation at 0 degrees Abduction 42 Internal Rotation Behind Back (text) R lateral buttock Right Passive Shoulder ROM WFL No Testing Position Supine Flexion 90 Abduction 42 External Rotation at 45 degrees 10 Abduction Internal Rotation 25 Left Passive Shoulder ROM WFL No Testing Position Supine Flexion 125 Abduction 70 External Rotation at 45 degrees 42 Abduction Internal Rotation 50 Left Testing Position Sitting Left Active Shoulder ROM WFL No Testing Position Sitting Flexion 105 Abduction 65 External Rotation at 0 degrees Abduction 30 Internal Rotation Behind Back (text) Mid back at L5 PT-OP-M Strength Start: 12/20/18 17:24 Freq: Status: Active Protocol: Document 12/21/18 08:25 LRN (Rec: 12/21/18 09:48 LRN [id number]) Shoulder Strength Shoulder Manual Muscle Testing Right Flexion 2- Poor- Abduction (C5) 2- Poor- External Rotation 3- Fair- Internal Rotation 3- Fair- Left Flexion 2 Poor Abduction (C5) 2- Poor- External Rotation 3- Fair- Internal Rotation 5 Normal Elbow/Forearm Strength Elbow and Forearm Manual Muscle Testing Right Flexion (C6) 3 Fair Left Flexion (C6) 4+ Good+ PT-OP-Q Treatments Start: 12/20/18 17:24 Freq: Status: Active Protocol: Document 12/28/18 14:30 GGD (Rec: 12/28/18 15:57 GGD [email or web address]) Therapeutic Exercises Supine Exercises shoulder ER Supine Exercise Name wand shoulder ER Resistance wand Reps/Minutes 10 shoulder flexion Supine Exercise Name shoulder flexion Equipment Used wand Reps/Minutes 5 Manual Therapy Treatment Manual Techniques PROM Type shoulder PROM Body Location right shoulder Body Position Hooklying Reps/Duration 20 PT-OP-R Modalities Start: 12/28/18 15:50 Freq: Status: Active Protocol: Document 12/28/18 14:30 GGD (Rec: 12/28/18 15:57 GGD [email or web address]) Hot Pack/Cold Pack Treatment Cold Pack Location shoulder Patient Position Hooklying Treatment Duration (minutes) 10 Patient Tolerance Good Ultrasound Therapy Treatment right shoulder Treatment Duration (minutes) 8 Patient Position Hooklying Coupling Medium Ultrasound Gel Applicator Size (cm2) 5 Frequency Setting (mHz) 3 Mode Setting Continuous Intensity Setting (w/cm2) 1.0 PT-OP-T Assessment and Plan Start: 12/20/18 17:24 Freq: Status: Active Protocol: Document 12/28/18 14:30 GGD (Rec: 12/28/18 15:57 GGD [id number]) Physical Therapy Assessment Assessment Summary Assessment Pt had improve tolerance to wand exercise after CUS and PROM. She had slow improvement in shoulder ROM. Physical Therapy Plan Frequency and Duration Frequency of Treatment 2x/Week Plan of Care Start Date 12/21/18 Plan of Care End Date 02/24/19 Next Visit Focus/Plan Next Note Type Treatment Note Next Visit Plan Start with general ROM with UE ex if tolerated, otherwise might try US to start, followed by R shoulder ROM and strengthening ex's. Manual JMT and ROM. End with Cryotherapy. When the pt has made gains with her R shoulder , the pt will be referred back for a new referral for LE weakness and balance.
--- NOTE | 2019-01-05 10:11 | PT.OTN ---
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 Pt is R hand dominant. Walking with walker the past 2 days due to recent hospital admission for Rhabdomyolysis after falling onto buttocks. No falls since using a walker. Prior Treatments and Tests X-ray in November 2018: Arthritis Future Testing and Treatments Planned Cortisone injection 12/27/18. Treatment Goals Patient/Caregiver Goals Decrease R shoulder pain down so she can get a cortisone shot and regain function of the the R arm. Another goal is to be able to walk in order to strengthen the legs, but pt understands that will be addressed at a different time. Prior Functional Status Baseline Function- ADL's Independent Baseline Function- Mobility Independent Baseline Function- Other Reaching need assist with other hand and has pain with movement. Cant lift arm without pain and is weak. Current Functional Impairments (Reported) Functional Limitations- ADL's Can't reach forward without pain Can't reach upward due to pain Can't get off floor Can't walk without the use of a walker Functional Limitations- Mobility/Gait Limited walking due to back pain. Functional Limitations- Other Reaching requires use of other hand to assist and has R shoulder pain with movement. Personal Factors Other Personal Factors That May Effect Recent diagnosis of Therapy/Recovery Rhabdomyolysis Diabetes type II Controlled HBP Lives alone. Chronicity of condition History of [place] and glo TKA. PT-OP-C Subjective Start: 12/20/18 17:24 Freq: Status: Active Protocol: Document 01/05/19 08:59 EA (Rec: 01/05/19 09:03 EA [id number]) OP-PT Subjective Patient Comments Patient Comments Pt admitted not doing her HEP; states injection to shoulder not working yet. PT-OP-E Functional Tests Start: 12/20/18 17:24 Freq: Status: Active Protocol: Document 12/21/18 08:25 LRN (Rec: 12/21/18 09:48 LRN [id number]) Functional Tests Apley's Scratch Test Action 1: The subject is instructed to touch the opposite shoulder with his/her hand. This motion checks Glenohumeral adduction, internal rotation , horizontal adduction and scapular protraction Action 2: The subject is instructed to place his/her arm overhead and reach behind the neck to touch his/her upper back. This motion checks Glenohumeral abduction, external rotation and scapular upward rotation and elevation. Action 3: The subject puts his/her hand on the lower back and reaches upward as far as possible. This motion checks glenohumeral adduction, internal rotation and scapular retraction with downward rotation Action 1- Left Top and posterior R shoulder Action 1- Right Anterior L shoulder Action 2- Left C5 Action 2- Right R side of head Action 3- Left L 5 Action 3- Right R buttock PT-OP-H Neuro Start: 12/20/18 17:24 Freq: Status: Active Protocol: Document 12/21/18 08:25 LRN (Rec: 12/21/18 09:48 LRN [id number]) Sensation Evaluation Gross Sensation Gross Sensation WNL Deep Tendon Reflex & Clonus Assessment Deep Tendon Reflex Right Bicep Deep Tendon Reflex 1+ Diminished Left Bicep Deep Tendon Reflex 2+ Normal Bilateral Tricep Deep Tendon Reflex 2+ Normal PT-OP-J Posture/Palpation/Skin Start: 12/20/18 17:24 Freq: Status: Active Protocol: Document 12/21/18 08:25 LRN (Rec: 12/21/18 09:48 LRN [id number]) Posture Evaluation Position Standing Evaluation View Anterior Head/C-Spine Posture Side Bent Left C-Spine Flattened Forward Head T-Spine Posture Increased Kyphosis L-Spine Posture Decreased Lordosis Shoulder Posture (L) Rounded (R) Rounded Hip Posture (L) Flexed (R) Flexed Palpation Assessment Location R shoulder/neck Palpation Location R ACJ, Acromion process anteriorly & posteriorly Palpation Findings Edema Spasm Tenderness Palpation Details Swelling at R Pec Minor/Major & Lateral Deltoid PT-OP-K Range of Motion Start: 12/20/18 17:24 Freq: Status: Active Protocol: Document 12/21/18 08:25 LRN (Rec: 12/21/18 09:48 LRN [id number]) Cervical Spine Range of Motion Cervical Spine Active Degrees Testing Position Sitting Flexion 40 Extension 60 Rotation Left 60 Rotation Right 55 ROM Limitations Soft Tissue Tightness Shoulder Goniometric Range of Motion Shoulder Measured in Degrees Right Active Shoulder ROM WFL Yes Testing Position Sitting Flexion 67 Abduction 60 External Rotation at 0 degrees Abduction 42 Internal Rotation Behind Back (text) R lateral buttock Right Passive Shoulder ROM WFL No Testing Position Supine Flexion 90 Abduction 42 External Rotation at 45 degrees 10 Abduction Internal Rotation 25 Left Passive Shoulder ROM WFL No Testing Position Supine Flexion 125 Abduction 70 External Rotation at 45 degrees 42 Abduction Internal Rotation 50 Left Testing Position Sitting Left Active Shoulder ROM WFL No Testing Position Sitting Flexion 105 Abduction 65 External Rotation at 0 degrees Abduction 30 Internal Rotation Behind Back (text) Mid back at L5 PT-OP-M Strength Start: 12/20/18 17:24 Freq: Status: Active Protocol: Document 12/21/18 08:25 LRN (Rec: 12/21/18 09:48 LRN [id number]) Shoulder Strength Shoulder Manual Muscle Testing Right Flexion 2- Poor- Abduction (C5) 2- Poor- External Rotation 3- Fair- Internal Rotation 3- Fair- Left Flexion 2 Poor Abduction (C5) 2- Poor- External Rotation 3- Fair- Internal Rotation 5 Normal Elbow/Forearm Strength Elbow and Forearm Manual Muscle Testing Right Flexion (C6) 3 Fair Left Flexion (C6) 4+ Good+ PT-OP-Q Treatments Start: 12/20/18 17:24 Freq: Status: Active Protocol: Document 01/05/19 08:59 EA (Rec: 01/05/19 09:03 EA [id number]) Therapeutic Exercises Supine Exercises shoulder ER Supine Exercise Name wand shoulder ER Resistance wand Reps/Minutes 10 shoulder flexion Supine Exercise Name shoulder flexion Equipment Used wand Reps/Minutes 10 Manual Therapy Treatment Soft Tissue Mobilization 1 Body Location STM on b paraspinals Mobilization Type Cross-Friction Sustained Pressure Intensity/Depth Moderate Body Position Sidelying Joint Mobilizations 1 Joint GH Direction Post/inf Grade II Body Position Supine Manual Techniques PROM Type shoulder PROM Body Location right shoulder Body Position Hooklying Reps/Duration 20 PT-OP-R Modalities Start: 12/28/18 15:50 Freq: Status: Active Protocol: Document 01/05/19 08:59 EA (Rec: 01/05/19 09:03 EA [id number]) Hot Pack/Cold Pack Treatment Cold Pack Location shoulder Patient Position Hooklying Treatment Duration (minutes) 10 Patient Tolerance Good Ultrasound Therapy Treatment right shoulder Treatment Duration (minutes) 8 Patient Position Hooklying Coupling Medium Ultrasound Gel Applicator Size (cm2) 5 Frequency Setting (mHz) 3 Mode Setting Continuous Intensity Setting (w/cm2) 1.0 R hip Applicator Size (cm2) 5 Duty Cycle 50% Comments Less pain with palpation. No change in pain intensity in standing. PT-OP-T Assessment and Plan Start: 12/20/18 17:24 Freq: Status: Active Protocol: Document 01/05/19 08:59 EA (Rec: 01/05/19 09:03 EA [id number]) Physical Therapy Assessment Assessment Summary Assessment Tolerated treament well; improved range after manual PT . Recommended to comply with HEP recommendation. Physical Therapy Plan Next Visit Focus/Plan Next Note Type Treatment Note Next Visit Plan Start with general ROM with UE ex if tolerated, otherwise might try US to start, followed by R shoulder ROM and strengthening ex's. Manual JMT and ROM. End with Cryotherapy. When the pt has made gains with her R shoulder , the pt will be referred back for a new referral for LE weakness and balance.
--- NOTE | 2019-01-13 13:47 | PT.OTN ---
Current Diagnoses Pain in right shoulder (01/13/19) Physical Therapy Treatment Note PT-OP-A Visit Information Start: 12/20/18 17:24 Freq: Status: Active Protocol: Document 01/13/19 12:47 LRN (Rec: 01/13/19 13:30 LRN [id number]) Out-Patient Physical Therapy Visit Information Visit Information Visit Type Treatment Note Visit Start Time 12:47 Visit Stop Time 13:37 Total Visit Minutes 50 Visit Number [address] OF [address] JUDGE Visits 0 Evaluation Information Evaluation Date 12/21/18 Precautions Precautions Recent dx: Rhabdomyolysis L [place], Timbo TKA, Diabetes II, Fall history PT-OP-B Current Condition Start: 12/20/18 17:24 Freq: Status: Active Protocol: Document 12/21/18 08:25 LRN (Rec: 12/21/18 09:48 LRN [id number]) Current Condition History of Current Condition Onset Date 10 yrs ago, but at annual physical in November 2018, R shoulder dysfunction Current Complaints R shoulder pain inside joint History of Current Condition Insidious onset of R shoulder pain 10 yrs ago that has progressively worsened. Pt is R hand dominant. Walking with walker the past 2 days due to recent hospital admission for Rhabdomyolysis after falling onto buttocks. No falls since using a walker. Prior Treatments and Tests X-ray in November 2018: Arthritis Future Testing and Treatments Planned Cortisone injection 12/27/18. Treatment Goals Patient/Caregiver Goals Decrease R shoulder pain down so she can get a cortisone shot and regain function of the the R arm. Another goal is to be able to walk in order to strengthen the legs, but pt understands that will be addressed at a different time. Prior Functional Status Baseline Function- ADL's Independent Baseline Function- Mobility Independent Baseline Function- Other Reaching need assist with other hand and has pain with movement. Cant lift arm without pain and is weak. Current Functional Impairments (Reported) Functional Limitations- ADL's Can't reach forward without pain Can't reach upward due to pain Can't get off floor Can't walk without the use of a walker Functional Limitations- Mobility/Gait Limited walking due to back pain. Functional Limitations- Other Reaching requires use of other hand to assist and has R shoulder pain with movement. Personal Factors Other Personal Factors That May Effect Recent diagnosis of Therapy/Recovery Rhabdomyolysis Diabetes type II Controlled HBP Lives alone. Chronicity of condition History of L [place] and timbo TKA. PT-OP-C Subjective Start: 12/20/18 17:24 Freq: Status: Active Protocol: Document 01/13/19 12:47 LRN (Rec: 01/13/19 13:30 LRN [id number]) OP-PT Subjective Patient Comments Patient Comments Did a strength and balance class at the [facility] yesterday and is muscle sore in the whole body. PT-OP-E Functional Tests Start: 12/20/18 17:24 Freq: Status: Active Protocol: Document 12/21/18 08:25 LRN (Rec: 12/21/18 09:48 LRN [id number]) Functional Tests Apley's Scratch Test Action 1: The subject is instructed to touch the opposite shoulder with his/her hand. This motion checks Glenohumeral adduction, internal rotation , horizontal adduction and scapular protraction Action 2: The subject is instructed to place his/her arm overhead and reach behind the neck to touch his/her upper back. This motion checks Glenohumeral abduction, external rotation and scapular upward rotation and elevation. Action 3: The subject puts his/her hand on the lower back and reaches upward as far as possible. This motion checks glenohumeral adduction, internal rotation and scapular retraction with downward rotation Action 1- Left Top and posterior R shoulder Action 1- Right Anterior L shoulder Action 2- Left C5 Action 2- Right R side of head Action 3- Left L 5 Action 3- Right R buttock PT-OP-H Neuro Start: 12/20/18 17:24 Freq: Status: Active Protocol: Document 12/21/18 08:25 LRN (Rec: 12/21/18 09:48 LRN [id number]) Sensation Evaluation Gross Sensation Gross Sensation WNL Deep Tendon Reflex & Clonus Assessment Deep Tendon Reflex Right Bicep Deep Tendon Reflex 1+ Diminished Left Bicep Deep Tendon Reflex 2+ Normal Bilateral Tricep Deep Tendon Reflex 2+ Normal PT-OP-J Posture/Palpation/Skin Start: 12/20/18 17:24 Freq: Status: Active Protocol: Document 12/21/18 08:25 LRN (Rec: 12/21/18 09:48 LRN [id number]) Posture Evaluation Position Standing Evaluation View Anterior Head/C-Spine Posture Side Bent Left C-Spine Flattened Forward Head T-Spine Posture Increased Kyphosis L-Spine Posture Decreased Lordosis Shoulder Posture (L) Rounded (R) Rounded Hip Posture (L) Flexed (R) Flexed Palpation Assessment Location R shoulder/neck Palpation Location R ACJ, Acromion process anteriorly & posteriorly Palpation Findings Edema Spasm Tenderness Palpation Details Swelling at R Pec Minor/Major & Lateral Deltoid PT-OP-K Range of Motion Start: 12/20/18 17:24 Freq: Status: Active Protocol: Document 12/21/18 08:25 LRN (Rec: 12/21/18 09:48 LRN [id number]) Cervical Spine Range of Motion Cervical Spine Active Degrees Testing Position Sitting Flexion 40 Extension 60 Rotation Left 60 Rotation Right 55 ROM Limitations Soft Tissue Tightness Shoulder Goniometric Range of Motion Shoulder Measured in Degrees Right Active Shoulder ROM WFL Yes Testing Position Sitting Flexion 67 Abduction 60 External Rotation at 0 degrees Abduction 42 Internal Rotation Behind Back (text) R lateral buttock Right Passive Shoulder ROM WFL No Testing Position Supine Flexion 90 Abduction 42 External Rotation at 45 degrees 10 Abduction Internal Rotation 25 Left Passive Shoulder ROM WFL No Testing Position Supine Flexion 125 Abduction 70 External Rotation at 45 degrees 42 Abduction Internal Rotation 50 Left Testing Position Sitting Left Active Shoulder ROM WFL No Testing Position Sitting Flexion 105 Abduction 65 External Rotation at 0 degrees Abduction 30 Internal Rotation Behind Back (text) Mid back at L5 PT-OP-M Strength Start: 12/20/18 17:24 Freq: Status: Active Protocol: Document 12/21/18 08:25 LRN (Rec: 12/21/18 09:48 LRN [id number]) Shoulder Strength Shoulder Manual Muscle Testing Right Flexion 2- Poor- Abduction (C5) 2- Poor- External Rotation 3- Fair- Internal Rotation 3- Fair- Left Flexion 2 Poor Abduction (C5) 2- Poor- External Rotation 3- Fair- Internal Rotation 5 Normal Elbow/Forearm Strength Elbow and Forearm Manual Muscle Testing Right Flexion (C6) 3 Fair Left Flexion (C6) 4+ Good+ PT-OP-Q Treatments Start: 12/20/18 17:24 Freq: Status: Active Protocol: Document 01/13/19 12:47 LRN (Rec: 01/13/19 13:30 LRN [id number]) Cardio Equipment Recumbent Stepper (Sci-Fit) Duration (Minutes) 6 Resistance 2.5 Seat Position 14 Other Arms and legs. Feels it working the arm Therapeutic Exercises Supine Exercises Forward punch Supine Exercise Name Chest press Side right Reps/Minutes 10 x 3 Shoulder IR Supine Exercise Name Shoulder IR stretch f/b active IR Side right Reps/Minutes 5' 2 sets of stretch Comments Active assisted motion with approximation at shoulder shoulder ER Supine Exercise Name wand shoulder ER Resistance wand Reps/Minutes 10 Comments Active assisted ER with approximation at shoulder shoulder flexion Supine Exercise Name shoulder flexion Equipment Used wand Reps/Minutes 10 x 2 Comments End-range hold stretch 10 sec Sidelying Exercises Shoulder ER Sidelying Exercise Name AA Shoulder ER Side right Reps/Minutes 8x Comments Stopped due to pain Sitting Exercises Shoulder ER/IR Sitting Exercise Name Active shoulder ER/IR, elbows at sides Reps/Minutes 10x3 Comments See self care below Standing Exercises Hip AB Standing Exercise Name Alternating Hip AB Side bilateral Equipment Used Bar Reps/Minutes 10 x each Comments Verbal and physical cuing for neutral posturing Gait Training Gait Activity 1 Description Gait training for proper standing posture Device Used FWW Level of Assistance verbal & physical cuing to limit R hip lateral shifr Surface Level Distance/Duration 6' Treatment Focus Weight shift left without shoulder leaning. Comments Manual cuing to R hip and L upper trunk. Manual Therapy Treatment Joint Mobilizations 1 Joint GH Direction Post/inf Grade II Body Position Supine Reps/Duration 2' Comments With PROM after PT-OP-R Modalities Start: 12/28/18 15:50 Freq: Status: Active Protocol: Document 01/13/19 12:47 LRN (Rec: 01/13/19 13:30 LRN [id number]) Hot Pack/Cold Pack Treatment Cold Pack Location R Shoulder/Sacral-Coccygeal region Patient Position Hooklying Treatment Duration (minutes) 10 Patient Tolerance Good PT-OP-T Assessment and Plan Start: 12/20/18 17:24 Freq: Status: Active Protocol: Document 01/13/19 12:47 LRN (Rec: 01/13/19 13:30 LRN [id number]) Physical Therapy Assessment Assessment Summary Assessment Pt having R shoulder pain with active movement and is very limited in ER/IR. She has lessened pain sometimes with approximation at the shoulder joint; therefore she may have with pain from instability. No low back pain complaints with gait training. Physical Therapy Plan Frequency and Duration Frequency of Treatment 2x/Week Plan of Care Start Date 12/21/18 Plan of Care End Date 02/24/19 Next Visit Focus/Plan Next Note Type Treatment Note Next Visit Plan Try US to start to improve tolerance with general ROM & UE ex strengthening ex's. Manual JMT infer/personalization specialist. End with Cryotherapy. When the pt has made gains with her R shoulder, the pt will be referred back for a new referral for LE weakness and balance. IN
--- NOTE | 2019-01-18 15:29 | PT.OTN ---
Current Diagnoses Pain in right shoulder (01/18/19) Physical Therapy Treatment Note PT-OP-A Visit Information Start: 12/20/18 17:24 Freq: Status: Active Protocol: Document 01/18/19 12:48 LRN (Rec: 01/18/19 13:39 LRN [id number]) Out-Patient Physical Therapy Visit Information Visit Information Visit Type Treatment Note Visit Start Time 12:48 Visit Stop Time 13:38 Total Visit Minutes 50 Visit Number 5 Number of LENS GRINDER APPRENTICE Visits 0 Evaluation Information Evaluation Date 12/21/18 Precautions Precautions Recent dx: Rhabdomyolysis L [place], Timbo TKA, Diabetes II, Fall history PT-OP-B Current Condition Start: 12/20/18 17:24 Freq: Status: Active Protocol: Document 12/21/18 08:25 LRN (Rec: 12/21/18 09:48 LRN [id number]) Current Condition History of Current Condition Onset Date 10 yrs ago, but at annual physical in November 2018, R shoulder dysfunction Current Complaints R shoulder pain inside joint History of Current Condition Insidious onset of R shoulder pain 10 yrs ago that has progressively worsened. Pt is R hand dominant. Walking with walker the past 2 days due to recent hospital admission for Rhabdomyolysis after falling onto buttocks. No falls since using a walker. Prior Treatments and Tests X-ray in November 2018: Arthritis Future Testing and Treatments Planned Cortisone injection 12/27/18. Treatment Goals Patient/Caregiver Goals Decrease R shoulder pain down so she can get a cortisone shot and regain function of the the R arm. Another goal is to be able to walk in order to strengthen the legs, but pt understands that will be addressed at a different time. Prior Functional Status Baseline Function- ADL's Independent Baseline Function- Mobility Independent Baseline Function- Other Reaching need assist with other hand and has pain with movement. Cant lift arm without pain and is weak. Current Functional Impairments (Reported) Functional Limitations- ADL's Can't reach forward without pain Can't reach upward due to pain Can't get off floor Can't walk without the use of a walker Functional Limitations- Mobility/Gait Limited walking due to back pain. Functional Limitations- Other Reaching requires use of other hand to assist and has R shoulder pain with movement. Personal Factors Other Personal Factors That May Effect Recent diagnosis of Therapy/Recovery Rhabdomyolysis Diabetes type II Controlled HBP Lives alone. Chronicity of condition History of L [place] and timbo TKA. PT-OP-C Subjective Start: 12/20/18 17:24 Freq: Status: Active Protocol: Document 01/18/19 12:48 LRN (Rec: 01/18/19 13:39 LRN [id number]) OP-PT Subjective Patient Comments Patient Comments Put walker up 5 days ago and has been using a cane. No falls. Has had increased sway , but no loss of balance. Doing the strength and balance class at the [facility]. Remembers on January 12 @ 2am, she fell towards her R side hitting cabinets with her head and the nose hit the floor States she didnt mention it last treatment because she didnt hurt. Not sure why she has a bruise on the R lateral shoulder, subacromially, but maybe she his her shoulder when she fell. Patient Reported Progress Same PT-OP-E Functional Tests Start: 12/20/18 17:24 Freq: Status: Active Protocol: Document 12/21/18 08:25 LRN (Rec: 12/21/18 09:48 LRN [id number]) Functional Tests Apley's Scratch Test Action 1: The subject is instructed to touch the opposite shoulder with his/her hand. This motion checks Glenohumeral adduction, internal rotation , horizontal adduction and scapular protraction Action 2: The subject is instructed to place his/her arm overhead and reach behind the neck to touch his/her upper back. This motion checks Glenohumeral abduction, external rotation and scapular upward rotation and elevation. Action 3: The subject puts his/her hand on the lower back and reaches upward as far as possible. This motion checks glenohumeral adduction, internal rotation and scapular retraction with downward rotation Action 1- Left Top and posterior R shoulder Action 1- Right Anterior L shoulder Action 2- Left C5 Action 2- Right R side of head Action 3- Left L 5 Action 3- Right R buttock PT-OP-H Neuro Start: 12/20/18 17:24 Freq: Status: Active Protocol: Document 12/21/18 08:25 LRN (Rec: 12/21/18 09:48 LRN [id number]) Sensation Evaluation Gross Sensation Gross Sensation WNL Deep Tendon Reflex & Clonus Assessment Deep Tendon Reflex Right Bicep Deep Tendon Reflex 1+ Diminished Left Bicep Deep Tendon Reflex 2+ Normal Bilateral Tricep Deep Tendon Reflex 2+ Normal PT-OP-J Posture/Palpation/Skin Start: 12/20/18 17:24 Freq: Status: Active Protocol: Document 12/21/18 08:25 LRN (Rec: 12/21/18 09:48 LRN [id number]) Posture Evaluation Position Standing Evaluation View Anterior Head/C-Spine Posture Side Bent Left C-Spine Flattened Forward Head T-Spine Posture Increased Kyphosis L-Spine Posture Decreased Lordosis Shoulder Posture (L) Rounded (R) Rounded Hip Posture (L) Flexed (R) Flexed Palpation Assessment Location R shoulder/neck Palpation Location R ACJ, Acromion process anteriorly & posteriorly Palpation Findings Edema Spasm Tenderness Palpation Details Swelling at R Pec Minor/Major & Lateral Deltoid PT-OP-K Range of Motion Start: 12/20/18 17:24 Freq: Status: Active Protocol: Document 12/21/18 08:25 LRN (Rec: 12/21/18 09:48 LRN [id number]) Cervical Spine Range of Motion Cervical Spine Active Degrees Testing Position Sitting Flexion 40 Extension 60 Rotation Left 60 Rotation Right 55 ROM Limitations Soft Tissue Tightness Shoulder Goniometric Range of Motion Shoulder Measured in Degrees Right Active Shoulder ROM WFL Yes Testing Position Sitting Flexion 67 Abduction 60 External Rotation at 0 degrees Abduction 42 Internal Rotation Behind Back (text) R lateral buttock Right Passive Shoulder ROM WFL No Testing Position Supine Flexion 90 Abduction 42 External Rotation at 45 degrees 10 Abduction Internal Rotation 25 Left Passive Shoulder ROM WFL No Testing Position Supine Flexion 125 Abduction 70 External Rotation at 45 degrees 42 Abduction Internal Rotation 50 Left Testing Position Sitting Left Active Shoulder ROM WFL No Testing Position Sitting Flexion 105 Abduction 65 External Rotation at 0 degrees Abduction 30 Internal Rotation Behind Back (text) Mid back at L5 PT-OP-M Strength Start: 12/20/18 17:24 Freq: Status: Active Protocol: Document 12/21/18 08:25 LRN (Rec: 12/21/18 09:48 LRN [id number]) Shoulder Strength Shoulder Manual Muscle Testing Right Flexion 2- Poor- Abduction (C5) 2- Poor- External Rotation 3- Fair- Internal Rotation 3- Fair- Left Flexion 2 Poor Abduction (C5) 2- Poor- External Rotation 3- Fair- Internal Rotation 5 Normal Elbow/Forearm Strength Elbow and Forearm Manual Muscle Testing Right Flexion (C6) 3 Fair Left Flexion (C6) 4+ Good+ PT-OP-Q Treatments Start: 12/20/18 17:24 Freq: Status: Active Protocol: Document 01/18/19 12:48 LRN (Rec: 01/18/19 13:39 LRN [id number]) Cardio Equipment Recumbent Stepper (Sci-Fit) Duration (Minutes) 8 Resistance 2.5 Seat Position 13 Other 30 rpm or more. Arms and legs . Feels it working the arm Therapeutic Exercises Supine Exercises Windshield wipe ex Supine Exercise Name Windshield wipe Side right Reps/Minutes 60x Comments Painfree range Sitting Exercises Row Sitting Exercise Name Row Side bilateral Equipment Used Lev 1 T-Band Reps/Minutes 10x2 Elbow ext Sitting Exercise Name Elbow ext (arm at ~20-30 deg's flex) Side bilateral Resistance L1 T-Band Reps/Minutes 15x2 Elbow curls Sitting Exercise Name Elbow curls Side bilateral Resistance 1# Equipment Used hand weight Reps/Minutes 18x 2 Shoulder ER/IR Sitting Exercise Name Shoulder ER Side bilateral Resistance Lev 1 T-Band Reps/Minutes 15x2 Self-Care/Home Management Treatment Education Other Education Pt I/S to use a walker vs a cane for safety with ambulation. PT-OP-R Modalities Start: 12/28/18 15:50 Freq: Status: Active Protocol: Document 01/18/19 12:48 LRN (Rec: 01/18/19 13:39 LRN [id number]) Hot Pack/Cold Pack Treatment Cold Pack Location R Shoulder Patient Position Hooklying Treatment Duration (minutes) 10 Patient Tolerance Good Ultrasound Therapy Treatment right shoulder Treatment Duration (minutes) 8 Patient Position Hooklying Coupling Medium Ultrasound Gel Applicator Size (cm2) 5 Frequency Setting (mHz) 3 Mode Setting Continuous Intensity Setting (w/cm2) 1.0 PT-OP-T Assessment and Plan Start: 12/20/18 17:24 Freq: Status: Active Protocol: Document 01/18/19 12:48 LRN (Rec: 01/18/19 15:18 LRN [id number]) Physical Therapy Assessment Goals ROM Impairment Decreased R shoulder AROM limiting mobility resulting in pain Channeler Insole Goal (LTG) Pt will be able to reach with R arm forward and overhead at same as L arm is currently. LTG Duration 02/24/19 R shoulder pain Impairment Poor posturing with R Shoulder pain Short Term Goal (STG) Pt pain will be reduced to no greater than 3/10 at its worst in order to receive a cortisone injection STG Duration 02/04/19 Jail Goal (LTG) Pt will be able to recognize and self correct independently her shoulder posture to decrease or eliminate pain with reaching forward or overhead. LTG Duration 02/24/19 Five Impairment Lacks appropriate HEP Channeler Insole Goal (LTG) Pt will be able to manage her R shoulder pain with her independent self care HEP. LTG Duration 02/24/19 Assessment Summary Assessment Pt has a yellow, healing bruise at the subacromial region of the L shoulder that the pt is not sure why she has it, although she thinks it was from a fall at home when getting up in the middle of the night to urinate. The pt comes to therapy today with a cane and demonstrating a couple times of poor balance that may have resulted in a fall if she had just the cane. The pt is somewhat resistant to going back to using a walker, but for her safety with gait, a walker would be more appropriate. The pt has started a more consistent therapy schedule, therefore her progress towards reaching with her L arm across her body and overhead is slow. Pt has poor postural awareness of her shoulders. Extra time taken for pt to transition to one treatment to another due to instability with use of cane. Physical Therapy Plan Frequency and Duration Frequency of Treatment 2x/Week Plan of Care Start Date 12/21/18 Plan of Care End Date 02/24/19 Next Visit Focus/Plan Next Note Type Treatment Note Next Visit Plan Discuss Home Life Alert with pt. Assess response to use of US to start to improve tolerance with general ROM & UE ex strengthening ex's. Manual JMT L shoulder: infer/ automatic pilot mechanic. End with Cryotherapy. When the pt has made gains with her R shoulder, the pt will be referred back for a new referral for LE weakness and balance.
--- NOTE | 2019-01-20 13:54 | PT.OTN ---
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 Pt is R hand dominant. Walking with walker the past 2 days due to recent hospital admission for Rhabdomyolysis after falling onto buttocks. No falls since using a walker. Prior Treatments and Tests X-ray in November 2018: Arthritis Future Testing and Treatments Planned Cortisone injection 12/27/18. Treatment Goals Patient/Caregiver Goals Decrease R shoulder pain down so she can get a cortisone shot and regain function of the the R arm. Another goal is to be able to walk in order to strengthen the legs, but pt understands that will be addressed at a different time. Prior Functional Status Baseline Function- ADL's Independent Baseline Function- Mobility Independent Baseline Function- Other Reaching need assist with other hand and has pain with movement. Cant lift arm without pain and is weak. Current Functional Impairments (Reported) Functional Limitations- ADL's Can't reach forward without pain Can't reach upward due to pain Can't get off floor Can't walk without the use of a walker Functional Limitations- Mobility/Gait Limited walking due to back pain. Functional Limitations- Other Reaching requires use of other hand to assist and has R shoulder pain with movement. Personal Factors Other Personal Factors That May Effect Recent diagnosis of Therapy/Recovery Rhabdomyolysis Diabetes type II Controlled HBP Lives alone. Chronicity of condition History of L [place] and timbo TKA. PT-OP-C Subjective Start: 12/20/18 17:24 Freq: Status: Active Protocol: Document 01/20/19 12:50 LRN (Rec: 01/20/19 13:50 LRN [id number]) OP-PT Subjective Patient Comments Patient Comments Thinks she is recovering well from fall 1 week ago. States the ex at the Center has her very tired, but its good for me. States the bruise on the shoulder is healing. I don't want to use a walker. Pt comes to t herapy using a SPC. States she threw her Life Alert away because Patient Reported Progress Same PT-OP-E Functional Tests Start: 12/20/18 17:24 Freq: Status: Active Protocol: Document 12/21/18 08:25 LRN (Rec: 12/21/18 09:48 LRN [id number]) Functional Tests Apley's Scratch Test Action 1: The subject is instructed to touch the opposite shoulder with his/her hand. This motion checks Glenohumeral adduction, internal rotation , horizontal adduction and scapular protraction Action 2: The subject is instructed to place his/her arm overhead and reach behind the neck to touch his/her upper back. This motion checks Glenohumeral abduction, external rotation and scapular upward rotation and elevation. Action 3: The subject puts his/her hand on the lower back and reaches upward as far as possible. This motion checks glenohumeral adduction, internal rotation and scapular retraction with downward rotation Action 1- Left Top and posterior R shoulder Action 1- Right Anterior L shoulder Action 2- Left C5 Action 2- Right R side of head Action 3- Left L 5 Action 3- Right R buttock PT-OP-H Neuro Start: 12/20/18 17:24 Freq: Status: Active Protocol: Document 12/21/18 08:25 LRN (Rec: 12/21/18 09:48 LRN [id number]) Sensation Evaluation Gross Sensation Gross Sensation WNL Deep Tendon Reflex & Clonus Assessment Deep Tendon Reflex Right Bicep Deep Tendon Reflex 1+ Diminished Left Bicep Deep Tendon Reflex 2+ Normal Bilateral Tricep Deep Tendon Reflex 2+ Normal PT-OP-J Posture/Palpation/Skin Start: 12/20/18 17:24 Freq: Status: Active Protocol: Document 12/21/18 08:25 LRN (Rec: 12/21/18 09:48 LRN [id number]) Posture Evaluation Position Standing Evaluation View Anterior Head/C-Spine Posture Side Bent Left C-Spine Flattened Forward Head T-Spine Posture Increased Kyphosis L-Spine Posture Decreased Lordosis Shoulder Posture (L) Rounded (R) Rounded Hip Posture (L) Flexed (R) Flexed Palpation Assessment Location R shoulder/neck Palpation Location R ACJ, Acromion process anteriorly & posteriorly Palpation Findings Edema Spasm Tenderness Palpation Details Swelling at R Pec Minor/Major & Lateral Deltoid PT-OP-K Range of Motion Start: 12/20/18 17:24 Freq: Status: Active Protocol: Document 12/21/18 08:25 LRN (Rec: 12/21/18 09:48 LRN [id number]) Cervical Spine Range of Motion Cervical Spine Active Degrees Testing Position Sitting Flexion 40 Extension 60 Rotation Left 60 Rotation Right 55 ROM Limitations Soft Tissue Tightness Shoulder Goniometric Range of Motion Shoulder Measured in Degrees Right Active Shoulder ROM WFL Yes Testing Position Sitting Flexion 67 Abduction 60 External Rotation at 0 degrees Abduction 42 Internal Rotation Behind Back (text) R lateral buttock Right Passive Shoulder ROM WFL No Testing Position Supine Flexion 90 Abduction 42 External Rotation at 45 degrees 10 Abduction Internal Rotation 25 Left Passive Shoulder ROM WFL No Testing Position Supine Flexion 125 Abduction 70 External Rotation at 45 degrees 42 Abduction Internal Rotation 50 Left Testing Position Sitting Left Active Shoulder ROM WFL No Testing Position Sitting Flexion 105 Abduction 65 External Rotation at 0 degrees Abduction 30 Internal Rotation Behind Back (text) Mid back at L5 PT-OP-M Strength Start: 12/20/18 17:24 Freq: Status: Active Protocol: Document 12/21/18 08:25 LRN (Rec: 12/21/18 09:48 LRN [id number]) Shoulder Strength Shoulder Manual Muscle Testing Right Flexion 2- Poor- Abduction (C5) 2- Poor- External Rotation 3- Fair- Internal Rotation 3- Fair- Left Flexion 2 Poor Abduction (C5) 2- Poor- External Rotation 3- Fair- Internal Rotation 5 Normal Elbow/Forearm Strength Elbow and Forearm Manual Muscle Testing Right Flexion (C6) 3 Fair Left Flexion (C6) 4+ Good+ PT-OP-Q Treatments Start: 12/20/18 17:24 Freq: Status: Active Protocol: Document 01/20/19 12:50 LRN (Rec: 01/20/19 13:50 LRN [id number]) Cardio Equipment Recumbent Stepper (Sci-Fit) Duration (Minutes) 9 Resistance 2.5 Seat Position 13 Other 30 rpm or more. Arms and legs . Feels it working the arm Therapeutic Exercises Supine Exercises Windshield wipe ex Supine Exercise Name Windshield wipe Side right Reps/Minutes 60x Comments Painfree range Forward punch Supine Exercise Name Chest press Side right Reps/Minutes 10 x 3 Comments With assist Shoulder IR Supine Exercise Name Shoulder IR stretch f/b active IR Side right Reps/Minutes 5' 2 sets of stretch and active IR Comments Active assisted motion with approximation at shoulder shoulder ER Supine Exercise Name Shoulder ER stretch f/b active ER Side right Reps/Minutes 5' 2 sets of stretch and active ER Comments Active assisted ER with approximation at shoulder shoulder flexion Supine Exercise Name shoulder flexion Equipment Used wand Reps/Minutes 10 x 2 Comments End-range hold stretch 10 sec Manual Therapy Treatment Joint Mobilizations 1 Joint R GHJ Direction Post/inf Grade II Body Position Supine Reps/Duration 5' Comments With PROM after Manual Techniques AA Shoulder flex, ER, IR Type AA R shoulder ROM Body Position Supine Reps/Duration 15x2 Comments R elbow supported by towel roll. PT-OP-R Modalities Start: 12/28/18 15:50 Freq: Status: Active Protocol: Document 01/20/19 12:50 LRN (Rec: 01/20/19 13:50 LRN [id number]) Hot Pack/Cold Pack Treatment Cold Pack Location R Shoulder Patient Position Hooklying Treatment Duration (minutes) 10 Patient Tolerance Good Ultrasound Therapy Treatment right shoulder Treatment Duration (minutes) 8 Patient Position Hooklying Coupling Medium Ultrasound Gel Applicator Size (cm2) 5 Frequency Setting (mHz) 3 Mode Setting Continuous Intensity Setting (w/cm2) 1.0 Comments Around shoulder joint Superior , mid posterior and mid anterior. PT-OP-T Assessment and Plan Start: 12/20/18 17:24 Freq: Status: Active Protocol: Document 01/20/19 12:50 LRN (Rec: 01/20/19 13:50 LRN [id number]) Physical Therapy Assessment Assessment Summary Assessment Pt R shoulder bruise from fall a week ago is healing, tolerance to ex is improved today and she was able to tolerate AAROM of R shoulder in supine and tolerated well active shoulder ER/IR. US prior to ex appeared to be helpful for pt pain management . Pt chosing not to have life line and not to have Life Alert, carrying her phone with her in place of life alert Physical Therapy Plan Frequency and Duration Frequency of Treatment 2x/Week Plan of Care Start Date 12/21/18 Plan of Care End Date 02/24/19 Next Visit Focus/Plan Next Note Type Treatment Note Next Visit Plan US to start to improve tolerance with general ROM & UE ex strengthening ex's. 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 End with Cryotherapy. When the pt has made gains with her R shoulder, the pt will be referred back for a new referral for LE weakness and balance. Repetitive v. cuing for proper shoulder posturing. Pain assessment at shoulder.
--- NOTE | 2019-01-25 14:01 | PT.OTN ---
Current Diagnoses Pain in right shoulder (01/25/19) Physical Therapy Treatment Note PT-OP-A Visit Information Start: 12/20/18 17:24 Freq: Status: Active Protocol: Document 01/25/19 12:47 LRN (Rec: 01/25/19 12:57 LRN [id number]) Out-Patient Physical Therapy Visit Information Visit Information Visit Type Treatment Note Visit Start Time 12:47 Visit Stop Time 13:45 Total Visit Minutes 58 Visit Number 6 Number of CONSUMER EDUCATION SPECIALIST Visits 0 Evaluation Information Evaluation Date 12/21/18 Precautions Precautions Recent dx: Rhabdomyolysis [place], [place] TKA, Diabetes II, Fall history PT-OP-B Current Condition Start: 12/20/18 17:24 Freq: Status: Active Protocol: Document 12/21/18 08:25 LRN (Rec: 12/21/18 09:48 LRN [id number]) Current Condition History of Current Condition Onset Date 10 yrs ago, but at annual physical in November 2018, R shoulder dysfunction Current Complaints R shoulder pain inside joint History of Current Condition Insidious onset of R shoulder pain 10 yrs ago that has progressively worsened. Pt is R hand dominant. Walking with walker the past 2 days due to recent hospital admission for Rhabdomyolysis after falling onto buttocks. No falls since using a walker. Prior Treatments and Tests X-ray in November 2018: Arthritis Future Testing and Treatments Planned Cortisone injection 12/27/18. Treatment Goals Patient/Caregiver Goals Decrease R shoulder pain down so she can get a cortisone shot and regain function of the the R arm. Another goal is to be able to walk in order to strengthen the legs, but pt understands that will be addressed at a different time. Prior Functional Status Baseline Function- ADL's Independent Baseline Function- Mobility Independent Baseline Function- Other Reaching need assist with other hand and has pain with movement. Cant lift arm without pain and is weak. Current Functional Impairments (Reported) Functional Limitations- ADL's Can't reach forward without pain Can't reach upward due to pain Can't get off floor Can't walk without the use of a walker Functional Limitations- Mobility/Gait Limited walking due to back pain. Functional Limitations- Other Reaching requires use of other hand to assist and has R shoulder pain with movement. Personal Factors Other Personal Factors That May Effect Recent diagnosis of Therapy/Recovery Rhabdomyolysis Diabetes type II Controlled HBP Lives alone. Chronicity of condition History of L [place] and timbo TKA. PT-OP-C Subjective Start: 12/20/18 17:24 Freq: Status: Active Protocol: Document 01/25/19 12:47 LRN (Rec: 01/25/19 12:57 LRN [id number]) OP-PT Subjective Patient Comments Patient Comments States pain in the R shoulder is with movement. Pain at worst is 9/10, active assisted pain with ex is 5-6/10. The R shoulder, mostly, is killing me. Legs are weak, R hip pain is gone. Cortisone shot in the R shoulder didn't seem to do a jones thing. PT-OP-E Functional Tests Start: 12/20/18 17:24 Freq: Status: Active Protocol: Document 12/21/18 08:25 LRN (Rec: 12/21/18 09:48 LRN [id number]) Functional Tests Apley's Scratch Test Action 1: The subject is instructed to touch the opposite shoulder with his/her hand. This motion checks Glenohumeral adduction, internal rotation , horizontal adduction and scapular protraction Action 2: The subject is instructed to place his/her arm overhead and reach behind the neck to touch his/her upper back. This motion checks Glenohumeral abduction, external rotation and scapular upward rotation and elevation. Action 3: The subject puts his/her hand on the lower back and reaches upward as far as possible. This motion checks glenohumeral adduction, internal rotation and scapular retraction with downward rotation Action 1- Left Top and posterior R shoulder Action 1- Right Anterior L shoulder Action 2- Left C5 Action 2- Right R side of head Action 3- Left L 5 Action 3- Right R buttock PT-OP-H Neuro Start: 12/20/18 17:24 Freq: Status: Active Protocol: Document 12/21/18 08:25 LRN (Rec: 12/21/18 09:48 LRN [id number]) Sensation Evaluation Gross Sensation Gross Sensation WNL Deep Tendon Reflex & Clonus Assessment Deep Tendon Reflex Right Bicep Deep Tendon Reflex 1+ Diminished Left Bicep Deep Tendon Reflex 2+ Normal Bilateral Tricep Deep Tendon Reflex 2+ Normal PT-OP-J Posture/Palpation/Skin Start: 12/20/18 17:24 Freq: Status: Active Protocol: Document 12/21/18 08:25 LRN (Rec: 12/21/18 09:48 LRN [id number]) Posture Evaluation Position Standing Evaluation View Anterior Head/C-Spine Posture Side Bent Left C-Spine Flattened Forward Head T-Spine Posture Increased Kyphosis L-Spine Posture Decreased Lordosis Shoulder Posture (L) Rounded (R) Rounded Hip Posture (L) Flexed (R) Flexed Palpation Assessment Location R shoulder/neck Palpation Location R ACJ, Acromion process anteriorly & posteriorly Palpation Findings Edema Spasm Tenderness Palpation Details Swelling at R Pec Minor/Major & Lateral Deltoid PT-OP-K Range of Motion Start: 12/20/18 17:24 Freq: Status: Active Protocol: Document 12/21/18 08:25 LRN (Rec: 12/21/18 09:48 LRN [id number]) Cervical Spine Range of Motion Cervical Spine Active Degrees Testing Position Sitting Flexion 40 Extension 60 Rotation Left 60 Rotation Right 55 ROM Limitations Soft Tissue Tightness Shoulder Goniometric Range of Motion Shoulder Measured in Degrees Right Active Shoulder ROM WFL Yes Testing Position Sitting Flexion 67 Abduction 60 External Rotation at 0 degrees Abduction 42 Internal Rotation Behind Back (text) R lateral buttock Right Passive Shoulder ROM WFL No Testing Position Supine Flexion 90 Abduction 42 External Rotation at 45 degrees 10 Abduction Internal Rotation 25 Left Passive Shoulder ROM WFL No Testing Position Supine Flexion 125 Abduction 70 External Rotation at 45 degrees 42 Abduction Internal Rotation 50 Left Testing Position Sitting Left Active Shoulder ROM WFL No Testing Position Sitting Flexion 105 Abduction 65 External Rotation at 0 degrees Abduction 30 Internal Rotation Behind Back (text) Mid back at L5 PT-OP-M Strength Start: 12/20/18 17:24 Freq: Status: Active Protocol: Document 12/21/18 08:25 LRN (Rec: 12/21/18 09:48 LRN [id number]) Shoulder Strength Shoulder Manual Muscle Testing Right Flexion 2- Poor- Abduction (C5) 2- Poor- External Rotation 3- Fair- Internal Rotation 3- Fair- Left Flexion 2 Poor Abduction (C5) 2- Poor- External Rotation 3- Fair- Internal Rotation 5 Normal Elbow/Forearm Strength Elbow and Forearm Manual Muscle Testing Right Flexion (C6) 3 Fair Left Flexion (C6) 4+ Good+ PT-OP-Q Treatments Start: 12/20/18 17:24 Freq: Status: Active Protocol: Document 01/25/19 12:47 LRN (Rec: 01/25/19 12:57 LRN [id number]) Cardio Equipment Recumbent Stepper (Sci-Fit) Duration (Minutes) 9 Resistance 2.5 Seat Position 13 Other 30 rpm or more. Arms and legs . Feels it working the arm Therapeutic Exercises Supine Exercises Windshield wipe ex Supine Exercise Name Windshield wipe Side right Reps/Minutes 60x Comments Painfree range Forward punch Supine Exercise Name Chest press Side right Reps/Minutes 10 x 3 Comments With assist Shoulder IR Supine Exercise Name Shoulder IR stretch f/b active IR Side right Reps/Minutes 5' 2 sets of stretch and active IR Comments Active assisted motion with approximation at shoulder shoulder ER Supine Exercise Name Shoulder ER stretch f/b active ER Side right Reps/Minutes 5' 2 sets of stretch and active ER Comments Active assisted ER with approximation at shoulder shoulder flexion Supine Exercise Name shoulder flexion Equipment Used wand Reps/Minutes 10 x 2 Comments End-range hold stretch 10 sec Sitting Exercises Pec stretching Sitting Exercise Name Pec stretch with scapular retraction Side right Reps/Minutes 3' Elbow ext Sitting Exercise Name Elbow ext (arm at ~20-30 deg's flex) Side bilateral Resistance L1 T-Band Reps/Minutes 15x3 Elbow curls Sitting Exercise Name Elbow curls Side bilateral Resistance 1# Equipment Used hand weight Reps/Minutes 18x 3 Standing Exercises Row Standing Exercise Name Row Resistance Lev 2 Reps/Minutes 15x2 Comments Physical cuing needed to get intrascapular pinching Manual Therapy Treatment Joint Mobilizations 1 Joint R GHJ Direction Post/inf Grade II Body Position Supine Reps/Duration 5' Comments Inferior glide in sitting. PROM after JMT in supine. Manual Techniques AA Shoulder flex, ER, IR Type AA R shoulder ROM Body Position Supine Reps/Duration 3' Comments R elbow supported by towel roll. Self-Care/Home Management Treatment Activities Self-Care/Home Management Activities I/S pt to ex R shoulder daily, including day of Sr. Citizen ex class. PT-OP-R Modalities Start: 12/28/18 15:50 Freq: Status: Active Protocol: Document 01/20/19 12:50 LRN (Rec: 01/20/19 13:50 LRN [id number]) Hot Pack/Cold Pack Treatment Cold Pack Location R Shoulder Patient Position Hooklying Treatment Duration (minutes) 10 Patient Tolerance Good Ultrasound Therapy Treatment right shoulder Treatment Duration (minutes) 8 Patient Position Hooklying Coupling Medium Ultrasound Gel Applicator Size (cm2) 5 Frequency Setting (mHz) 3 Mode Setting Continuous Intensity Setting (w/cm2) 1.0 Comments Around shoulder joint Superior , mid posterior and mid anterior. PT-OP-T Assessment and Plan Start: 12/20/18 17:24 Freq: Status: Active Protocol: Document 01/25/19 12:47 LRN (Rec: 01/25/19 12:59 LRN [id number]) Physical Therapy Assessment Goals ROM Impairment Decreased R shoulder AROM limiting mobility resulting in pain Engagement Mgr Goal (LTG) Pt will be able to reach with R arm forward and overhead at same as L arm is currently. LTG Duration 02/24/19 R shoulder pain Impairment Poor posturing with R Shoulder pain Short Term Goal (STG) Pt pain will be reduced to no greater than 3/10 at its worst in order to receive a cortisone injection STG Duration 02/04/19 Engagement Mgr Goal (LTG) Pt will be able to recognize and self correct independently her shoulder posture to decrease or eliminate pain with reaching forward or overhead. LTG Duration 02/24/19 Five Impairment Lacks appropriate HEP Skilled Nursing Goal (LTG) Pt will be able to manage her R shoulder pain with her independent self care HEP. LTG Duration 02/24/19 Assessment Summary Assessment Pt doesn't appear the pt is being consistent with her HEP, which may be the reason for lack of progress. Also, the pt's condition of Rhabdomyolysis is hindering her progress. The pt has committed to being more consistent for the next 2 weeks; therefore if the pt is able to show some improvement in 2 weeks, further therapy would be appropriate, otherwise the pt needs to return to her MD or seek an orthopedic consult as to her other options of care. Physical Therapy Plan Frequency and Duration Frequency of Treatment 2x/Week Plan of Care Start Date 12/21/18 Plan of Care End Date 02/24/19 Next Visit Focus/Plan Next Note Type Treatment Note Next Visit Plan Recheck in 2 weeks for improvement. If no change, refer pt back to MD or orthopedist for a consult of other options of care. Begin with US to R shoulder joint to start, to improve tolerance with general ROM & UE ex strengthening ex's. 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 End with Cryotherapy. When the pt has made gains with her R shoulder, the pt will be referred back for a new referral for LE weakness and balance. Repetitive v.cuing for proper shoulder posturing.
--- NOTE | 2019-01-27 16:27 | PT.OPDS ---
Current Diagnoses Pain in right shoulder (01/25/19) Provider Visit Care Team Role Provider Type Clyde Armas MD Attending Provider Physician Primary Care Provider Specialty: [facility] Address: [address] [place] [address], [facility] Email: [email or web address] Visit Number Visit Number 6 Discharge Summary PT-OP-B Current Condition Start: 12/20/18 17:24 Freq: Status: Active Protocol: Document 12/21/18 08:25 LRN (Rec: 12/21/18 09:48 LRN [id number]) Current Condition History of Current Condition Onset Date 10 yrs ago, but at annual physical in November 2018, R shoulder dysfunction Current Complaints R shoulder pain inside joint History of Current Condition Insidious onset of R shoulder pain 10 yrs ago that has progressively worsened. Pt is R hand dominant. Walking with walker the past 2 days due to recent hospital admission for Rhabdomyolysis after falling onto buttocks. No falls since using a walker. Prior Treatments and Tests X-ray in November 2018: Arthritis Future Testing and Treatments Planned Cortisone injection 12/27/18. Treatment Goals Patient/Caregiver Goals Decrease R shoulder pain down so she can get a cortisone shot and regain function of the the R arm. Another goal is to be able to walk in order to strengthen the legs, but pt understands that will be addressed at a different time. Prior Functional Status Baseline Function- ADL's Independent Baseline Function- Mobility Independent Baseline Function- Other Reaching need assist with other hand and has pain with movement. Cant lift arm without pain and is weak. Current Functional Impairments (Reported) Functional Limitations- ADL's Can't reach forward without pain Can't reach upward due to pain Can't get off floor Can't walk without the use of a walker Functional Limitations- Mobility/Gait Limited walking due to back pain. Functional Limitations- Other Reaching requires use of other hand to assist and has R shoulder pain with movement. Personal Factors Other Personal Factors That May Effect Recent diagnosis of Therapy/Recovery Rhabdomyolysis Diabetes type II Controlled HBP Lives alone. Chronicity of condition History of L AUGUSTO and glo TKA. PT-OP-C Subjective Start: 12/20/18 17:24 Freq: Status: Active Protocol: Document 01/25/19 12:47 LRN (Rec: 01/25/19 12:57 LRN [id number]) OP-PT Subjective Patient Comments Patient Comments States pain in the R shoulder is with movement. Pain at worst is 9/10, active assisted pain with ex is 5-6/10. The R shoulder, mostly, is killing me. Legs are weak, R hip pain is gone. Cortisone shot in the R shoulder didn't seem to do a jones thing. PT-OP-T Assessment and Plan Start: 12/20/18 17:24 Freq: Status: Active Protocol: Document 01/27/19 16:23 LRN (Rec: 01/27/19 16:26 LRN [id number]) Physical Therapy Assessment Goals ROM Impairment Decreased R shoulder AROM limiting mobility resulting in pain Prison Goal (LTG) Pt will be able to reach with R arm forward and overhead at same as L arm is currently. LTG Duration 02/24/19 R shoulder pain Impairment Poor posturing with R Shoulder pain Short Term Goal (STG) Pt pain will be reduced to no greater than 3/10 at its worst in order to receive a cortisone injection STG Duration 02/04/19 Plasterer Spot Goal (LTG) Pt will be able to recognize and self correct independently her shoulder posture to decrease or eliminate pain with reaching forward or overhead. LTG Duration 02/24/19 Five Impairment Lacks appropriate HEP Prison Goal (LTG) Pt will be able to manage her R shoulder pain with her independent self care HEP. LTG Duration 02/24/19 Progress Towards Goals Progress Towards Goals Progressing Toward Goals Progress Comments Pt able to walk safely without a cane with a slow gait, small step lengths and a mild trendelenberg type gait. No significant improvement noted with R shoulder mobility or strength. Pt has a HEP, but was unable to progress it very far due to pain limiting mobility and strengthening. Physical Therapy Plan Discharge Physical Therapy Discharge Reasons Patient Request Discharge Comments Pt planning on going back to .
== END 2019-01-27 17:39 | disposition home or self-care (01) ==
LOC: PHYS 12:45
PROVIDERS: PCP Family Medicine; Visit Provider Family Medicine
DX: M25.511 Pain in right shoulder (principal)
CPT/HCPCS: 97035; 97110; 97140; 97162; 97535

== ENCOUNTER 2019-07-23 00:05 | Emergency (ER) | payer MEDICARE, SELFPAY ==
[2018-12-18 16:36] VITALS: BMI 31.5
[2019-07-23 00:10] VITALS: BP 157/89; PULSE 76; RESP 20; TEMP 36.7; O2SAT 98
--- NOTE | 2019-07-23 02:36 | ED_ITS ---
HPI - Wound/Laceration General Chief Complaint: Wound/Laceration Stated Complaint: fall at home, right side of head injury Time Seen by Provider: 07/23/19 02:36 Source: patient and old records reviewed Mode of arrival: Ambulatory Limitations: no limitations History of Present Illness HPI narrative: 79-year-old female comes emergency department with complaint of fall. Patient was in the shower when she states she slipped and fell and hit her head. She denies loss of consciousness, states that she crawled to the phone to get help and then EMS came and helped lift her in a chair. She has a laceration over her right brow. She states she does take aspirin. She denies any other injuries. She denies any neck or back pain. No chest pain, no abdominal pain. No injuries to her arms or legs. She denies any shortness of breath. No nausea vomiting no other GI or urinary symptoms. Patient states she has fallen in the past. Related Data Home Medications Medication Instructions Recorded Confirmed CA PANTOTHENATE/FOLIC ACID/VIT 1 tab PO Q DAY #0 08/25/11 12/29/18 (MULTIVITAMIN) Calcium Carbonate/Vitamin D 1 cap PO Q DAY #0 08/25/11 12/29/18 (#CALCIUM) Fish Oil (#FISH OIL) 1 iu PO BID #0 08/25/11 12/29/18 latanoprost [Xalatan] 1 drp OPHTH BEDTIME #0 08/25/11 12/29/18 indomethacin 50 mg PO PRN PRN #0 03/26/16 12/29/18 aspirin 81 mg PO QDAY #30 tab 04/02/16 12/29/18 atorvastatin 5 mg PO Q OTHER DAY 12/19/18 12/29/18 multivitamin 1 tab PO DAILY 12/19/18 12/29/18 Previous Rx's Medication Instructions Recorded lisinopril 40 mg tablet 40 mg PO QDAY #90 tab 12/01/18 metformin 500 mg tablet,extended 500 mg PO BID #180 tab 12/01/18 release 24 hr atorvastatin [Lipitor] 10 mg PO EVERY OTHER DAY #30 tab 12/19/18 hydrocodone-acetaminophen 1 tab PO BID PRN #30 tab 12/19/18 Allergies Allergy/AdvReac Type Severity Reaction Status Date / Time oxycodone Allergy Severe PSYCHOTIC Verified 12/29/18 10:55 EPISODES diphenhydramine Allergy Mild FLU LIKE Verified 12/29/18 10:55 SYMPTOMS hydrochlorothiazide Allergy Mild UNKNOWN Verified 12/29/18 10:55 Review of Systems Review of Systems ROS Unobtainable: All systems reviewed & are unremarkable except as noted in HPI and below Patient History Medical History Cataract (Resolved 2012) Diabetes mellitus (Chronic 08/2000) Glaucoma (Chronic 09/2004) Gout (Resolved ~10/1995) Hyperlipidemia (Chronic) Hypertension (Chronic) Lumbar spinal stenosis (Chronic) Osteoarthritis (Chronic) Urinary incontinence (Chronic 08/2009) Surgical History Anesthesia (Resolved) History of cataract removal with insertion of prosthetic lens (Resolved) History of hip replacement (Resolved) History of knee replacement (Resolved 04/2009) History of knee replacement (Resolved 07/2010) History of open reduction and internal fixation (ORIF) procedure (Resolved) Status post cholecystectomy (Resolved 08/1998) Status post discectomy (Resolved 06/2014) Social History marital status: household members: none Smoking Status: Never smoker alcohol intake: current substance use type: does not use Smoking Status: Never smoker alcohol intake frequency: holidays/special occasions only Substance Use Type: does not use Exam Narrative Exam Narrative: GEN: Patient appears in mild distress. HEAD: Patient has a 4 cm laceration of the right brow that is deep to the subcutaneous tissue, no bony exposure, no raccoon/Salas sign. NECK: Nontender, painless range of motion, trachea midline Negative Nexus criteria, there is no line tenderness, distracting injury, altered mental status, neuro deficit, recent EtOH. EYES: PERRLA, EOMI ENT: External inspection normal except as above, trachea is midline, TM's are normal no hemotypanum, Nares are clear, no septal hematoma, no dental or oral injury, airway is normal and with normal occlusion, No bony tenderness RESP: Chest is nontender and has symmetric movement, no ecchymosis, breath sounds are normal no crackles, wheezes or rales CVS: Heart sounds are normal, no murmur noted, No JVD. ABG/GI: Nontender, soft, normal bowel sounds, no distention, no organomegaly, pelvic rock is negative NEURO: Oriented AOx3, neuro is grossly intact, sensation and motor is normal all 4 extremities moving, cranial nerves II through XII are intact, GCS is 15, patient ambulated to the bathroom without issue. PSYCH: Normal mood and affect SKIN: Intact, warm and dry, no crepitus and without decubitus BACK: No CVA tenderness, no vertebral tenderness, no step-off's, no crepitus EXT: Atraumatic, hips are nontender, no pedal edema, normal color and tempe rature, normal range of motion of extremities with normal tendon exam, 2+ pulses in all four extremities Initial Vital Signs Initial Vital Signs: Vital Signs Temperature 98.1 F 07/23/19 00:10 Pulse Rate 76 07/23/19 00:10 Respiratory Rate 20 07/23/19 00:10 Blood Pressure 157/89 H 07/23/19 00:10 Pulse Oximetry 98 07/23/19 00:10 Procedures Laceration Repair Laceration 1: Site: scalp (right brow) Size (cm): 4.2 Description: linear Depth: simple, single layer Local Anesthetic: lidocaine 1% Amount of anesthesia used (mL): 4.5 Pre-repair: wound explored, irrigated extensively and deep structures intact Skin layer closed with: vicryl Size (cm): 5-0 Number of sutures: 8 Technique: simple, interrupted Course Orders Ordered: ED Orders 07/23/19 02:43 CT head/brain wo con Stat Discontinued Medications Acetaminophen (Tylenol) 975 mg PO NOW ONE Stop: 07/23/19 02:46 Last Admin: 07/23/19 03:03 Dose: 975 mg Documented by: NARINDER Lidocaine/Sodium Bicarbonate (Buffered Lidocaine 10 Ml Syr) 10 ml INJ NOW ONE Stop: 07/23/19 03:43 Last Admin: 07/23/19 04:14 Dose: 10 ml Documented by: NARINDER Vital Signs Vital signs: Vital Signs - 8 hr 07/23/19 00:10 07/23/19 03:22 07/23/19 04:29 Temperature 98.1 F Pulse Rate 76 72 77 Respiratory Rate 20 15 17 Blood Pressure 157/89 H Blood Pressure [Left Arm] 146/76 H 157/89 H Pulse Oximetry 98 97 99 MDM - Wound/Laceration Imaging Data CT scan - head: Radiologist's impression: Stable brain. No acute intracranial injury MDM Narrative Medical decision making narrative: Patient states slip and fall in shower. She was able to ambulate into department and otherwise asymptomatic. Head CT is negative. Laceration repaired. Patient able to ambulate again to bathroom and taken home by friend/neighbor. Strict return precautions. Discharge Plan Departure Patient Disposition: Home Clinical Impression: Laceration of eyebrow, right, Fall Discharge Date/Time: 07/23/19 04:45 Instructions: DI for Laceration Repair -- Simple Activity Restrictions/Additional Instructions: Follow-up with primary care in the next 5-7 days for recheck. Tylenol may be taken up to a 1000 mg every 8 hours as needed for pain. You may continue home medications as prescribed. Wound Care: Keep wound(s) clean and dry. Wash daily with soap and water only. Do not use over the counter products (alcohol or peroxide)on the wounds unless instructed by a physician. If wound condition worsens (increased/expanding redness, developing fluid blisters, or worsening pain), either contact your doctor for an urgent re- assessment , or return to the Emergency Department. Return to the Emergency Department for any new or worsening symptoms. Return if fever greater than 100.4 Fahrenheit, increased swelling, increasing pain or worsening symptoms such as increased discharge or spreading redness. Sudden severe headaches, altered mental status, rapidly worsening swelling of the face, difficulty with speech, new neck pain, new numbness, weakness, persistent vomiting or other new or concerning symptoms. Prescriptions: No Action latanoprost [Xalatan] 0.005 % drops 1 drp OPHTH BEDTIME Qty: 0 RF: 0 CA PANTOTHENATE/FOLIC ACID/VIT (MULTIVITAMIN) 1 tab PO Q DAY Qty: 0 RF: 0 Calcium Carbonate/Vitamin D (#CALCIUM) 1 cap PO Q DAY Qty: 0 RF: 0 Fish Oil (#FISH OIL) 1 iu PO BID Qty: 0 RF: 0 indomethacin 50 MG capsule 50 mg PO PRN PRN (Reason: gout pain) Qty: 0 RF: 0 aspirin 81 MG tablet,delayed release (DR/EC) 81 mg PO QDAY Qty: 30 RF: 0 lisinopril 40 mg tablet 40 mg PO QDAY Qty: 90 RF: 3 metformin [Glucophage XR] 500 mg tablet extended release 24 hr 500 mg PO BID Qty: 180 RF: 3 atorvastatin 10 mg Tablet 5 mg PO Q OTHER DAY RF: 0 multivitamin Tablet 1 tab PO DAILY RF: 0 atorvastatin [Lipitor] 10 mg Tablet 10 mg PO EVERY OTHER DAY Qty: 30 RF: 0 hydrocodone-acetaminophen 5-325 mg Tablet 1 tab PO BID PRN (Reason: Pain, Moderate (4-6)) Qty: 30 RF: 0 Referrals: Clyde Armas MD [Primary Care Provider] -
--- NOTE | 2019-07-23 02:43 | DI.CT.S_ITS ---
PROCEDURE: CT HEAD/BRAIN WO CON INDICATIONS: fall, head injury, laceration TECHNIQUE: Noncontrast 4.5 mm thick angled axial sections acquired from the foramen magnum to the vertex, with coronal and sagittal reformats. For radiation dose reduction, the following was used: automated exposure control, adjustment of mA and/or kV according to patient size. COMPARISON: [facility], CT, CT HEAD/BRAIN WO CON, 12/18/2018, 13:28. FINDINGS: Image quality: Excellent. CSF spaces: Basal cisterns are patent. No extra-axial fluid collections. The ventricles are unchanged in size and shape. There is cerebral volume loss, with resultant ventricular and sulcal prominence. The ventricles are again slightly enlarged out of proportion to the sulci. Brain: No intracranial hemorrhage, mass, or mass effect. There are subcortical, periventricular and deep white matter hypodensities consistent with mild chronic small vessel ischemic changes. There is intracranial internal carotid artery atherosclerosis. Skull and face: Calvarium and visualized facial bones are intact, without suspicious lesions. Sinuses: Visualized sinuses and mastoids are clear. IMPRESSION: 1. No acute intracranial abnormality. 2. Enlargement of the ventricles appears similar to the prior study. The findings likely reflect cerebral volume loss but normal pressure hydrocephalus again cannot be excluded. 3. Mild chronic white matter small vessel ischemic changes. Concordant with preliminary interpretation. Dictated by: Kel Mcgarry M.D. on 07/23/2019 at 7:37 Approved by: Kel Mcgarry M.D. on 07/23/2019 at 7:41
[2019-07-23] MEDS: ACETAMINOPHEN 325 MG TABLET 975 MG PO (03:03)
[2019-07-23 03:22] VITALS: BP 146/76; PULSE 72; RESP 15; O2SAT 97
[2019-07-23] MEDS: LIDO 1%/SOD BICARB 8.4% (10ML) 10 ML SYRINGE INJ (04:14)
[2019-07-23 04:29] VITALS: BP 157/89; PULSE 77; RESP 17; O2SAT 99
== END 2019-07-23 04:45 | disposition home or self-care (01) ==
PROVIDERS: Emergency Provider Emergency Medicine; PCP Family Medicine
DX: S01.111A Laceration without foreign body of right eyelid and periocular area, initial encounter (principal); S09.90XA Unspecified injury of head, initial encounter; W18.2XXA Fall in (into) shower or empty bathtub, initial encounter; Z79.82 Long term (current) use of aspirin
CPT/HCPCS: 12002; 70450; 99283; 99284